=== PATIENT | male | born 1950 | race Caucasian/White ===

== ENCOUNTER 2020-09-12 13:42 | Outpatient (REF) | payer MEDICARE, OTHER, SELFPAY ==
[2020-09-12 16:59] LABS: Estimated Average Glucose 177 mg/dL; Hemoglobin A1c % 7.8 %
[2020-09-12 17:17] LABS: Alanine Aminotransferase 24 U/L (0-40); Albumin Level 4.4 g/dL (3.5-5.0); Alkaline Phosphatase 68 U/L (39-117); Anion Gap 14 (12-20); Aspartate Amino Transferase 15 U/L (5-37); Bilirubin Total 0.8 mg/dL (0.0-1.0); Blood Urea Nitrogen 23 mg/dL (9-16); Calcium 9.6 mg/dL (8.4-10.2); Carbon Dioxide 25 mmol/L (22-29); Chloride 108 mmol/L (96-108); Cholesterol 165 mg/dL; Creatinine Urine 66.45 mg/dL; Estimated Glomerular Filt Rate > 60; Glucose Random 155 mg/dL (60-115); HDL Cholesterol 36 mg/dL; LDL Cholesterol Calculated 102 mg/dl; Microalbum/Creatinine Ratio Ur 22.5 ug/mg cr; Potassium 4.4 mmol/L (3.3-5.1); Sodium 143 mmol/L (135-145); Total Protein 7.4 g/dL (6.5-8.0); Triglycerides 136 mg/dL
== END 2020-09-12 13:43 | disposition home or self-care (01) ==
LOC: HO.MANLDS 13:42
PROVIDERS: PCP Internal Medicine; Visit Provider Internal Medicine
DX: E11.9 Type 2 diabetes mellitus without complications (principal)
CPT/HCPCS: 36415; 80053; 80061; 82043; 83036

== ENCOUNTER 2021-10-15 14:46 | Outpatient (REF) | payer MEDICARE, OTHER, SELFPAY ==
[2021-10-15 18:33] LABS: Estimated Average Glucose 151 mg/dL; Hemoglobin A1c % 6.9 %
== END 2021-10-15 14:47 | disposition home or self-care (01) ==
LOC: HO.MANLDS 14:46
PROVIDERS: Visit Provider Internal Medicine
DX: E11.9 Type 2 diabetes mellitus without complications (principal)
CPT/HCPCS: 36415; 83036

== ENCOUNTER 2022-03-28 15:10 | Outpatient (REF) | payer MEDICARE, OTHER, SELFPAY ==
[2022-03-28 19:36] LABS: Estimated Average Glucose 160 mg/dL; Hemoglobin A1c % 7.2 %
[2022-03-28 19:45] LABS: Alanine Aminotransferase 26 U/L (0-40); Albumin Level 4.4 g/dL (3.5-5.0); Alkaline Phosphatase 79 U/L (39-117); Anion Gap 15 (12-20); Aspartate Amino Transferase 17 U/L (5-37); Bilirubin Total 0.7 mg/dL (0.0-1.0); Blood Urea Nitrogen 20 mg/dL (9-16); Calcium 9.8 mg/dL (8.4-10.2); Carbon Dioxide 28 mmol/L (22-29); Chloride 106 mmol/L (96-108); Estimated Glomerular Filt Rate > 60; Glucose Random 118 mg/dL (60-115); Potassium 4.8 mmol/L (3.3-5.1); Sodium 144 mmol/L (135-145); Total Protein 7.2 g/dL (6.5-8.0)
== END 2022-03-28 15:11 | disposition home or self-care (01) ==
LOC: HO.MANLDS 15:10
PROVIDERS: Visit Provider Internal Medicine
DX: E11.9 Type 2 diabetes mellitus without complications (principal)
CPT/HCPCS: 36415; 80053; 83036

== ENCOUNTER 2024-04-22 16:09 | Outpatient (REF) | payer MEDICARE, OTHER, SELFPAY ==
--- OUTSIDE RECORDS SUMMARY | 2024-04-22 16:13 | XMS_ITS | Encounter Summary ---
Author Name [facility] [place] [facility] [place] Address [address] [place] [id number] Care Team Providers Care Test Developer Name Role Phone BUNNY MOTLEY Primary Care Provider Unavaila ble Insurance Providers: All historical and current Section Date Range: From patient's date of to the date document was created. This section includes the names of all active insurance providers for the patient. Insurance Provider Type of Coverage Plan Name Start of Policy Coverage End of Policy Coverage Group Number Member ID Insurance Provider's Telephone Number Policy Mohan's Name Patient's Relationship to Policy Mohan MEDICARE (WNR) MEDICARE (M) PART B Dec 07, 2014 PART B [id number] GRAHAMMECCA RIOS PATIENT MEDICARE (WNR) MEDICARE (M) PART A Jan 07, 2013 PART A [id number] MECCA STEVENSON PATIENT Selected Encounter This section includes the information on record at [place] for the Encounter. Date/Time Encounter Type Encounter Description Reason Provider Source Jan 19, 2024 03:00 PM OFFICE O/P EST LOW 20 MIN PRIMARY CARE/MEDICINE ICD-10-CM R31.0 Gross hematuria SAM MEJÍA [facility] Encounter Template Text not used by [place] Assessments - Encounter Diagnoses This section includes the primary and secondary diagnoses documented for the Encounter. Date/Time Primary/Secondary Diagnosis Diagnosis Name Provider Source Jan 19, 2024 03:37 PM PRIMARY Gross hematuria SAM MEJÍA [place] [facility] Jan 19, 2024 03:37 PM SECONDARY Type 2 diabetes mellitus with unspecified complications SAM MEJÍA [facility] Plan of Treatment: Future Appointments (+ 6 months) and Future Tests (+/- 45 days) The Plan of Treatment section includes future care activities for the patient [facility] [place] [facility] This section includes future appointments and future orders which are active, pending or scheduled. Future Appointments This section includes appointments that were scheduled to occur 6 months from the date of the Encounter, up to a maximum of 20 appointments. The data comes from all [facility] facilities. Appointment Date/Time Appointment Type Appointme nt Facility Name Jan 26, 2024 02:00 PM AMBULATORY - MEDICINE [facility] Mar 21, 2024 01:30 PM AMBULATORY MEDICINE [facility] Mar 25, 2024 01:40 PM AMBULATORY - MEDICINE [facility] Mar 25, 2024 02:30 PM AMBULATORY MEDICINE [facility] Active, Pending, and Scheduled Orders This section includes a listing of several types of active, pending, and scheduled orders, including clinic medications orders, diagnostic test orders, procedure orders and consult orders; where the start date of the order is 45 days before the date of the Encounter or 45 days after the date of theEncounter. The data comes from all [facility]. Test Date/Time Test Type Test Details Facility Name Jan 19, 2024 03:21 PM Consult Order [facility]-UROLOGY Cons Title Agent's Choice [facility] Lab Results: +/- 30 days of the encounter This section includes the Chemistry and Hematology Lab Results on record with [place] for the patient. Radiology Reports and Pathology Reports are provided separately, in subsequent sections. Lab Results This section contains the Chemistry/Hematology Results that were resulted 30 days before or 30 daysafter the date of the Encounter. Date/Time Source Result Type Result - Unit Interpretation Reference Range Comment Jan 19, 2024 03:53 PM [facility] CBC AND DIFF (AUTO) Specimen Type: BLOOD Comment: ~For Test: CBC AND DIFF (AUTO) ~STAT ORDER Ordering Provider: SAM MEJÍA Report Released Date/Time: Jan 19, 2024 03:03 PM Reporting Lab: [facility] [address] [facility] [address] Performing Lab: [facility] [address] [facility] [address] WBC 7.46 10*3/uL 4.50-11.00 RBC 4.59 10*6/uL 4.23-5.66 HGB 13.8 g/dL 12.8-17 HCT 39.5 39.2-50.4 MCV 86.1 fL 82-99 MCHC 34.9 g/dL 30.8-35.1 PLT 228 10*3/uL 140-360 RDW-CV 13.2 12.0-16.0 MONO, ABS 0.67 10*3/uL 0.30-1.10 MCH 30.1 pg 26.2-32.6 NEUT % 53.8 43.7-75.8 LYMPH % 32.3 14.0-42.3 MONO % 9.0 5.1-13.7 EOS % 4.2 0.4-6.8 BASO % 0.4 0.1-2.0 NEUT, ABS 4.02 10*3/uL 2.20-7.60 LYMPH, ABS 2.41 10*3/uL 1.00-3.20 EOS, ABS 0.31 10*3/uL 0.03-0.44 BASO, ABS 0.03 10*3/uL 0.01-0.13 IMMATURE GRAN % 0.3 0.0-0.7 IMMATURE GRAN, ABS 0.02 10*3/uL 0.00-0.06 NRBC % 0.0 0.0-0.0 NRBC, ABS 0.00 10*3/uL 0.00-0.00 Jan 19, 2024 02:43 PM [facility] PT & INR (PROTIME) Specimen Type: PLASMA No comment entered. Ordering Provider: SAM MEJÍA Report Released Date/Time: Jan 19, 2024 02:12 PM Reporting Lab: [facility] [address] [facility] [address] Performing Lab: [address] [address] INR 1.2 PROTIME 12.6 s 10.0-13.1 Jan 19, 2024 02:43 PM [facility] MICROSCOPIC AUTOMATED, URINE Specimen Type: URINE Comment: If Glucose = >500 and Ketones are positive, please alert the Physician. Ordering Provider: SAM MEJÍA Report Released Date/Time: Jan 19, 2024 02:11 PM Reporting Lab: [facility] [address] [facility] [address] Performing Lab: [facility] [address] [facility] [address] UA WBC TNTC /[HPF] 0-5 UA BACTERIA 3+ /[HPF] NoneObs UA RBC TNTC /[HPF] 0-3 UA WBC CLUMPS PRESENT /[HPF] None Jan 19, 2024 02:43 PM [facility] BASIC METABOLIC PANEL (non-fasting) Specimen Type: SERUM No comment entered. Ordering Provider: SAM MEJÍA Report Released Date/Time: Jan 19, 2024 02:12 PM Reporting Lab: [facility] [address] [facility] [address] Performing Lab: [address] [address] UREA NITROGEN 25 mg/dL 7-25 GLUCOSE 372 mg/dL H 65-100 SODIUM 141 mmol/L 135-145 POTASSIUM 4.9 mmol/L 3.5-5.0 CHLORIDE 105 mmol/L 100-110 CO2 22 meq/L 20-30 CREATININE, Serum 1.29 mg/dL 0.50-1.40 eGFR(CKD-EPI 2020) 57 mL/min L >60 Jan 19, 2024 02:43 PM [facility] URINALYSIS CLEAN CATCH Specimen Type: URINE Comment: If Glucose = >500 and Ketones are positive, please alert the Physician. Ordering Provider: SAM MEJÍA Report Released Date/Time: Jan 19, 2024 02:11 PM Reporting Lab: [address] [address] Performing Lab: [address] [place] [address] UA COLOR Brown Yellow UA APPEARANCE Ex.Turbid Clear UA GLUCOSE 1,000 mg/dL Negative UA KETONES NEGATIVE mg/dL Negative UA BLOOD LARGE mg/dL Negative UA PROTEIN 100 mg/dL Negative UA NITRITE NEGATIVE mg/dL Negative UA BILIRUBIN NEGATIVE mg/dL Negative UA SPECIFIC GRAVITY 1.028 H 1.016-1.022 UA pH 6.0 5.0-9.0 UA UROBILINOGEN Normal mg/dL <2.0 UA LEUKOCYTE LARGE Negative Vital Signs: All taken on the encounter date This section contains inpatient and outpatient Vital Signs collected on the date of the Encounter. Date/Time Temperature Pulse Blood Pressure Respiratory Rate SP02 Pain Height Weight Body Mass Index Source Jan 19, 2024 02:09 PM 97.7 76 110/66 16 98 3 [facility] Social History: Smoking Status (Most current) and Tobacco Use (All prior to encounter date) This section includes the most current, and the historical, smoking and tobacco- related health factors from the [place] facility where the Encounter took place. Current Smoking Status This section includes the most current smoking, or tobacco-related health factor, from the [place] facility where the Encounter took place. Date/Time Current Smoking Status Comment [facility] Sep 22, 2023 09:30 AM [place]-TOBACCO QUIT 15 YRS OR MORE [facility] Tobacco Use History This section includes a history of the smoking, or tobacco-related health factors, that were collected on or before the date of the Encounter. The data comes from the [place] facility where the Encounter took place. Date/Time Smoking Status/Tobac co Use Comment Facility Sep 22, 2023 09:30 AM [place] 15 [place]RS [place] [facility] [facility] Apr 03, 2022 03:00 PM [place]-TO[place]ACCO FORMER USER [place] [facility] Apr 03, 2022 03:00 PM [place]-TO[place]ACCO QUIT 15 YRS OR MORE [facility] [facility] Apr 04, 2021 03:30 PM [place]-TOBACCO FORMER USER [place] [facility] Apr 04, 2021 03:30 PM [place]-TO[place]ACCO QUIT 15 YRS OR MORE [place] [facility] Dec 09, 2019 01:00 PM [facility]-TOBACCO [facility] Dec 09, 2019 01:00 PM VA-TOBACCO QUIT 15 YRS OR MORE [facility] Dec 01, 2018 01:48 PM [place]-TOBACCO [facility] Dec 01, 2018 01:48 PM VA-TOBACCO QUIT 15 YRS OR MORE [facility] Jan 21, 2018 03:37 PM VA-TOBACCO [facility] Jan 21, 2018 03:37 PM VA-TOBACCO QUIT 15 YRS OR MORE [facility] Jan 19, 2017 01:56 PM QUIT TOBACCO USE > 7 YEARS AGO quit 40 myears ago [facility] Nov 30, 2015 01:04 PM QUIT TOBACCO USE > 7 YEARS AGO quit in 1979 [facility] July 09, 2001 08:11 AM QUIT TOBACCO USE > 7 YEARS AGO quit 1979 [facility] Pathology Reports: +/- 30 days of the encounter Pathology Reports For cases when an order for pathology services may have been completed prior to the date of the Encounter, the report list includes the Pathology Reports that were completed up to 30 days before dateof the Encounter. For cases when an order for pathology services may have been completed after the date of the Encounter, the report list also includes the Pathology Reports that were completed up to30 days after date of the Encounter. The data comes from all [facility] facilities. Date/Time Pathology Report Provider Source Jan 19, 2024 02:43 PM LR MICROBIOLOGY RE PORT: Reporting Lab: [facility] [CLIA# [id number]] [address] [place] [id number] Accession [UID]: [id number] [[id number]] Received: Jan 20, 2024@13:15 Collection sample: URINE CLEAN CATCH Collection date: Jan 19, 2024 14:43 Site/Specimen: URINE Provider: SAM MEJÍA Comment on specimen: POSITIVE CULTURE RESULTS MAY NOT REPRESENT CLINICAL INFECTION. CONSIDER NEED FOR ANTIBIOTICS IN THE CONTEXT OF UTI SYMPTOMS. Test(s) ordered: URINE CULTURE(MWROX).......... completed: Jan 25, 2024 10:45 * BACTERIOLOGY FINAL REPORT => Jan 25, 2024 10:45 [facility] CODE: [id number] CULTURE RESULTS: ESCHERICHIA COLI - Quantity: >100,000 CFU/ml ANTIBIOTIC SUSCEPTIBILITY TEST RESULTS: ESCHERICHIA COLI : SUSC INTP AMIKACIN.................. .... S S CEFEPIME.................. .... <2 S ERTAPENEM................. .... <0.5 S MEROPENEM................. .... <1 S PIPERACILLIN/TAZO......... .... <8 S AMPICILLIN................ .... <8 S CEFAZOLIN................. .... <2 S CEFTAZIDIME............... .... <1 S CEFTRIAXONE............... .... <1 S GENTAMICIN................ .... <2 S TOBRAMYCIN................ .... <2 S TRIM/SULF................. .... <0.5/9.5 S IMIPENEM.................. .... <1 S CIPROFLOXACIN............. .... <0.25 S NITROFURANTOIN............ .... <32 S CEFOXITIN................. .... <8 S CEFUROXIME................ .... <4 S AMPICILLIN/SULBACTAM...... .... <4/2 S LEVOFLOXACIN.............. .... <0.5 S =--=--=--=--=--=--=--=--=- -=--=--=--=--=--=--=--=--= --=--=--=--=--=--=--=--=-- Performing Laboratory: Bacteriology Report Performed By: [facility] [CLIA# [id number]] [address] [place] [address] LISA BESS [place] [facility] Encounter Notes: All associated encounter notes This section contains the clinical notes associated to the Encounter. Date/Time Encounter Note(s) Provider Source Feb 01, 2024 08:22 AM ADDENDUM: LOCAL TITLE: Addendum STANDARD TITLE: ADDENDUM DATE OF NOTE: FEB 01, 2024@08:22:16 ENTRY DATE: FEB 01, 2024@08:22:17 AUTHOR: SAM MEJÍA EXP COSIGNER: URGENCY: STATUS: COMPLETED ANTIBIOTIC SUSCEPTIBILITY TEST RESULTS: ESCHERICHIA COLI : SUSC INTP AMIKACIN................. ..... S S CEFEPIME................. ..... <2 S ERTAPENEM................ ..... <0.5 S MEROPENEM................ ..... <1 S PIPERACILLIN/TAZO........ ..... <8 S AMPICILLIN............... ..... <8 S CEFAZOLIN................ ..... <2 S CEFTAZIDIME.............. ..... <1 S CEFTRIAXONE.............. ..... <1 S GENTAMICIN............... ..... <2 S TOBRAMYCIN............... ..... <2 S TRIM/SULF................ ..... <0.5/9.5 S IMIPENEM................. ..... <1 S CIPROFLOXACIN............ ..... <0.25 S NITROFURANTOIN........... ..... <32 S CEFOXITIN................ ..... <8 S CEFUROXIME............... ..... <4 S AMPICILLIN/SULBACTAM..... ..... <4/2 S LEVOFLOXACIN............. ..... <0.5 S Coverage with Keflex: no further treatment required unless remains symptomatic. /joanna/ SAM MENESES MS,PAYumikoC PHYSICIAN DIRECTOR IMAGING Signed: 02/01/2024 08:22 Receipt Acknowledged By: 02/01/2024 08:39 /es/ Bunny Motley DNP, REVENUE COORDINATOR-, [facility] Primary Care Nurse Practitioner === --- Original Document --- 01/19/24 SEBASTIEN NOTE: SICK CALL VISIT HPI: 74-year-old male with below noted past medical history presents today for evaluation of persistent hematuria. denies any pain. He states that he has noted that he has been passing darker urine red to brown in color. Denies any fever or chills. He is not currently taking any anticoagulants. He does take aspirin 81 mg daily. He states that he did have a bowel movement but was seated on the toilet and may have urinated and thought that the stool also had blood. It was difficult for him to differentiate. He has not had any bloody stools since that episode. He has not felt weak or dizzy. There is been no chest pain or shortness of breath. He has not been seen by a urologist stating he does not know of any problems with his bladder or prostate. REVIEW OF SYSTEMS: A 12 point review of systems is negative except as noted in the HPI. 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 07/31/2016 JATIN BROCK Hiatal hernia R69. 07/30/2016 JATIN BROCK Anxiety F41.9 12/27/2018 ROGER WALLACE Osteoarthritis of knee R69. 11/30/2015 JATIN BROCK Hyperlipidemia (SNOMED CT 41040999) 04/08/2017 GUILLERMOPANCHOJAYE Hypertension (SNOMED CT 61094882) I 03/06/2016 JAYE GUILLERMO Obesity (SNOMED CT 430858727) E66.9 03/06/2016 JAYE GUILLERMO Hyperlipidemia (SNOMED CT 88639540) 03/06/2016 GUILLERMOJAYE Hepatitis C 070.51 01/07/2016 BUNNY WHITMORE Meds: Active Outpatient Medications (including Supplies): ATORVASTATIN CALCIUM 80MG TAB TAKE ONE TABLET BY MOUTH ACTIVE ONCE DAILY FOR CHOLESTEROL DOSE CHANGE EZETIMIBE 10MG TAB TAKE ONE TABLET BY MOUTH ONCE DAILY TO ACTIVE LOWER CHOLESTEROL GLUCOSE SENSOR DEXCOM G7 USE 1 SENSOR DIRECTED EVERY 10 ACTIVE DAYS INSULIN,ASPART(EQV-NOVLG) 100UN/ML FLXPEN INJECT 22 UNITS HOLD SUBCUTANEOUSLY THREE TIMES A DAY BEFORE MEALS FOR DIABETES INSULIN,GLARGINE-YFGN 100UNIT/ML PEN 3ML INJECT ACTIVE DIRECTED SUBCUTANEOUSLY ONCE DAILY START AT 40 UNITS PER DAY. IF BLOOD SUGAR REMAINS ELEVATED, MAY INCREASE TO 45 UNITS PER DAY. IF STILL ELEVATED, YOU MAY INCREASE TO 50 UNITS PER DAY KETOCONAZOLE 2% CREAM APPLY A SMALL AMOUNT TOPICALLY TWICE ACTIVE DAILY FUNGAL INFECTION LANCET,SOFTCLIX USE 1 LANCET DIRECTED THREE TIMES A DAY ACTIVE TO TEST BLOOD SUGAR MUPIROCIN 2% OINT APPLY THIN LAYER TOPICALLY TWICE DAILY ACTIVE FOR SKIN INFECTION PREGABALIN 200MG ORAL CAP TAKE ONE CAPSULE BY MOUTH TWICE ACTIVE DAILY FOR PAIN SKIN BARRIER WIPE TORBOT SKIN TAC USE 1 WIPE TOPICALLY ACTIVE EVERY 10 DAYS TO HELP SENSOR TO ADHERE BETTER TRANSPARENT DRESSING 4IN X 4 3/4IN APPLY 1 DRESSING ACTIVE TOPICALLY EVERY 10 DAYS TYPE 2 DIABETES FOR CGM/SENSOR Non-VA ALPHA LIPOIC ACID CAP/TAB 200 MG BY MOUTH TWICE ACTIVE DAILY Non-VA ASPIRIN 81MG EC TAB 81MG BY MOUTH ONCE DAILY ACTIVE Non-VA DESVENLAFAXINE(EQV-PRISTI Q)100MG SA TAB 100MG BY ACTIVE MOUTH ONCE DAILY Non-VA DICLOFENAC NA 75MG EC TAB 75MG BY MOUTH TWICE DAILY ACTIVE NEEDED Non-VA DOXEPIN HCL 75MG CAP 75MG BY MOUTH AT BEDTIME ACTIVE Non-VA GLUCOSE CHEW TAB TAB,CHEWABLE FOUR TABLETS BY MOUTH ACTIVE ONE TIME NEEDED Allergies: ERYTHROMYCIN, METFORMIN, EMPAGLIFLOZIN Date Vital Measurement Qualifiers 01/19/2024 14:09 Temp F (C) 97.7 (36.5) Pulse 76 Respir 16 BP 110/66 Pain 3 POx (L/Min)(%) 98 At Rest FOCUSED EXAMINATION GEN: Well-developed slightly disheveled with noted odor of urine in room HEENT: NCAT Lungs: CTAB COR: RRR Vascular: Well-perfused ABD: Protuberant nontender to palpation : No CVAT Labs: ---- PT 12.6 sec 10 - 13.1 INR 1.2 Comments: a a. Evaluation for INR: Normal: 0.9 - 1.1 INR Standard dose: 2.0 - 3.0 INR High dose: 2.5 - 3.5 INR ---- GLUCOSE 372 H mg/dL 65 - 100 BUN 25 mg/dL 7 - 25 CREATININE 1.29 mg/dL .5 - 1.4 eGFR(IDMS) Ref: >=60 CREAT mg/dL .5 - 1.5 eGFR See Eval Ref: See Eval Sodium 141 mmol/L 135 - 145 K+/Pot 4.9 mmol/L 3.5 - 5 CL 105 mmol/L 100 - 110 CO2 22 mEq/L 20 - 30 ---- WBC/HPF TNTC /HPF 0 - 5 RBC/HPF TNTC /HPF 0 - 3 BACTI 3+ /HPF Ref: NoneObs EPITH C ---- Color Brown Ref: Yellow Appear Ex.Turbid Ref: Clear pH 6.0 5 - 9 GlucUr 1,000 mg/dL Ref: Negative Keton Neg mg/dL Ref: Negative Blood LARGE mg/dL Ref: Negative Protein 100 mg/dL Ref: Negative LeukEs LARGE Ref: Negative Nitrit Neg mg/dL Ref: Negative Biliru Neg mg/dL Ref: Negative UroBiln Normal mg/dL Ref: <2.0 SpeGra 1.028 H 1.016 - 1.022 eGFR(CKD-EPI 2020): 57 L mL/min Ref: >=60 UA WBC CLUMPS: PRESENT /HPF CBCd ordered but cancelled by lab. MDM: No evidence of coagulopathy. Urine with large heme, leukocytes and bacteria. Will initiate Keflex 250 mg p.o. every 8 hours x 5 days. Painless hematuria concerning for neoplasm. is agreeable to be seen by urology for cystoscopy which I discussed with him at length in regards to the procedure. [place] also with poor control of is his diabetes (noted No Show with DM educator on 01/11). No ketones in urine. Will alert PCP for continuation of care. RTC as needed. ASSESSMENT/PLAN Gross Hematuria Type 2 diabetes mellitus as above able to verbalize understanding of plan of care and agrees. >> MEDICATIONS Reviewed and reconciled with /es/ SAM MENESES MS,PA-C PHYSICIAN DIRECTOR IMAGING Signed: 01/19/2024 15:39 Receipt Acknowledged By: 01/20/2024 06:26 /joanna/ Bunny Motley DNP, REVENUE COORDINATOR-BC, CNL Primary Care Nurse Practitioner SAM MEJÍA [facility] [facility] Jan 19, 2024 02:39 PM PHYSICIAN DIRECTOR IMAGING NOTE: LOCAL TITLE: SEBASTIEN NOTE STANDARD TITLE: PHYSICIAN DIRECTOR IMAGING NOTE DATE OF NOTE: JAN 19, 2024@14:39 ENTRY DATE: JAN 19, 2024@14:39:36 AUTHOR: SAM MEJÍA EXP COSIGNER: URGENCY: STATUS: COMPLETED SEBASTIEN NOTE Has ADDENDA SICK CALL VISIT HPI: 74-year-old male with below noted past medical history presents today for evaluation of persistent hematuria. denies any pain. He states that he has noted that he has been passing darker urine red to brown in color. Denies any fever or chills. He is not currently taking any anticoagulants. He does take aspirin 81 mg daily. He states that he did have a bowel movement but was seated on the toilet and may have urinated and thought that the stool also had blood. It was difficult for him to differentiate. He has not had any bloody stools since that episode. He has not felt weak or dizzy. There is been no chest pain or shortness of breath. He has not been seen by a urologist stating he does not know of any problems with his bladder or prostate. REVIEW OF SYSTEMS: A 12 point review of systems is negative except as noted in the HPI. 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 07/31/2016 JATIN BROCK Hiatal hernia R69. 07/30/2016 JATIN BROCK Anxiety F41.9 12/27/2018 ROGER WALLACE Osteoarthritis of knee R69. 11/30/2015 JATIN BROCK Hyperlipidemia (SNOMED CT 07319088) 04/08/2017 JAYE GUILLERMO Hypertension (SNOMED CT 82943222) I 03/06/2016 JAYE GUILLERMO Obesity (SNOMED CT 856350786) E66.9 03/06/2016 JAYE GUILLERMO Hyperlipidemia (SNOMED CT 72424489) 03/06/2016 JAYE GUILLERMO Hepatitis C 070.51 01/07/2016 BUNNY WHITMORE Meds: Active Outpatient Medications (including Supplies): ATORVASTATIN CALCIUM 80MG TAB TAKE ONE TABLET BY MOUTH ACTIVE ONCE DAILY FOR CHOLESTEROL DOSE CHANGE EZETIMIBE 10MG TAB TAKE ONE TABLET BY MOUTH ONCE DAILY TO ACTIVE LOWER CHOLESTEROL GLUCOSE SENSOR DEXCOM G7 USE 1 SENSOR DIRECTED EVERY 10 ACTIVE DAYS INSULIN,ASPART(EQV-NOVLG) 100UN/ML FLXPEN INJECT 22 UNITS HOLD SUBCUTANEOUSLY THREE TIMES A DAY BEFORE MEALS FOR DIABETES INSULIN,GLARGINE-YFGN 100UNIT/ML PEN 3ML INJECT ACTIVE DIRECTED SUBCUTANEOUSLY ONCE DAILY START AT 40 UNITS PER DAY. IF BLOOD SUGAR REMAINS ELEVATED, MAY INCREASE TO 45 UNITS PER DAY. IF STILL ELEVATED, YOU MAY INCREASE TO 50 UNITS PER DAY KETOCONAZOLE 2% CREAM APPLY A SMALL AMOUNT TOPICALLY TWICE ACTIVE DAILY FUNGAL INFECTION LANCET,SOFTCLIX USE 1 LANCET DIRECTED THREE TIMES A DAY ACTIVE TO TEST BLOOD SUGAR MUPIROCIN 2% OINT APPLY THIN LAYER TOPICALLY TWICE DAILY ACTIVE FOR SKIN INFECTION PREGABALIN 200MG ORAL CAP TAKE ONE CAPSULE BY MOUTH TWICE ACTIVE DAILY FOR PAIN SKIN BARRIER WIPE TORBOT SKIN TAC USE 1 WIPE TOPICALLY ACTIVE EVERY 10 DAYS TO HELP SENSOR TO ADHERE BETTER TRANSPARENT DRESSING 4IN X 4 3/4IN APPLY 1 DRESSING ACTIVE TOPICALLY EVERY 10 DAYS TYPE 2 DIABETES FOR CGM/SENSOR Non-VA ALPHA LIPOIC ACID CAP/TAB 200 MG BY MOUTH TWICE ACTIVE DAILY Non-VA ASPIRIN 81MG EC TAB 81MG BY MOUTH ONCE DAILY ACTIVE Non-VA DESVENLAFAXINE(EQV-PRISTI Q)100MG SA TAB 100MG BY ACTIVE MOUTH ONCE DAILY Non-VA DICLOFENAC NA 75MG EC TAB 75MG BY MOUTH TWICE DAILY ACTIVE NEEDED Non-VA DOXEPIN HCL 75MG CAP 75MG BY MOUTH AT BEDTIME ACTIVE Non-VA GLUCOSE CHEW TAB TAB,CHEWABLE FOUR TABLETS BY MOUTH ACTIVE ONE TIME NEEDED Allergies: ERYTHROMYCIN, METFORMIN, EMPAGLIFLOZIN Date Vital Measurement Qualifiers 01/19/2024 14:09 Temp F (C) 97.7 (36.5) Pulse 76 Respir 16 BP 110/66 Pain 3 POx (L/Min)(%) 98 At Rest FOCUSED EXAMINATION GEN: Well-developed slightly disheveled with noted odor of urine in room HEENT: NCAT Lungs: CTAB COR: RRR Vascular: Well-perfused ABD: Protuberant nontender to palpation : No CVAT Labs: ---- PT 12.6 sec 10 - 13.1 INR 1.2 Comments: a a. Evaluation for INR: Normal: 0.9 - 1.1 INR Standard dose: 2.0 - 3.0 INR High dose: 2.5 - 3.5 INR ---- GLUCOSE 372 H mg/dL 65 - 100 BUN 25 mg/dL 7 - 25 CREATININE 1.29 mg/dL .5 - 1.4 eGFR(IDMS) Ref: >=60 CREAT mg/dL .5 - 1.5 eGFR See Eval Ref: See Eval Sodium 141 mmol/L 135 - 145 K+/Pot 4.9 mmol/L 3.5 - 5 CL 105 mmol/L 100 - 110 CO2 22 mEq/L 20 - 30 ---- WBC/HPF TNTC /HPF 0 - 5 RBC/HPF TNTC /HPF 0 - 3 BACTI 3+ /HPF Ref: NoneObs EPITH C ---- Color Brown Ref: Yellow Appear Ex.Turbid Ref: Clear pH 6.0 5 - 9 GlucUr 1,000 mg/dL Ref: Negative [place] Neg mg/dL Ref: Negative Blood LARGE mg/dL Ref: Negative Protein 100 mg/dL Ref: Negative LeukEs LARGE Ref: Negative Nitrit Neg mg/dL Ref: Negative Biliru Neg mg/dL Ref: Negative UroBiln Normal mg/dL Ref: <2.0 SpeGra 1.028 H 1.016 - 1.022 eGFR(CKD-EPI 2020): 57 L mL/min Ref: >=60 UA WBC CLUMPS: PRESENT /HPF CBCd ordered but cancelled by lab. MDM: No evidence of coagulopathy. Urine with large heme, leukocytes and bacteria. Will initiate Keflex 250 mg p.o. every 8 hours x 5 days. Painless hematuria concerning for neoplasm. Joy is agreeable to be seen by urology for cystoscopy which I discussed with him at length in regards to the procedure. also with poor control of is his diabetes (noted No Show with DM educator on 01/11). No ketones in urine. Will alert PCP for continuation of care. RTC as needed. ASSESSMENT/PLAN Gross Hematuria Type 2 diabetes mellitus as above able to verbalize understanding of plan of care and agrees. >> MEDICATIONS Reviewed and reconciled with Joy /es/ SAM MENESES MS,PA-C PHYSICIAN DIRECTOR IMAGING Signed: 01/19/2024 15:39 Receipt Acknowledged By: 01/20/2024 06:26 /joanna/ Bunny Motley DNP, REVENUE COORDINATOR-BC, CNL Primary Care Nurse Practitioner 02/01/2024 ADDENDUM STATUS: COMPLETED ANTIBIOTIC SUSCEPTIBILITY TEST RESULTS: ESCHERICHIA COLI : SUSC INTP AMIKACIN................. ..... S S CEFEPIME................. ..... <2 S ERTAPENEM................ ..... <0.5 S MEROPENEM................ ..... <1 S PIPERACILLIN/TAZO........ ..... <8 S AMPICILLIN............... ..... <8 S CEFAZOLIN................ ..... <2 S CEFTAZIDIME.............. ..... <1 S CEFTRIAXONE.............. ..... <1 S GENTAMICIN............... ..... <2 S TOBRAMYCIN............... ..... <2 S TRIM/SULF................ ..... <0.5/9.5 S IMIPENEM................. ..... <1 S CIPROFLOXACIN............ ..... <0.25 S NITROFURANTOIN........... ..... <32 S CEFOXITIN................ ..... <8 S CEFUROXIME............... ..... <4 S AMPICILLIN/SULBACTAM..... ..... <4/2 S LEVOFLOXACIN............. ..... <0.5 S Coverage with Keflex: no further treatment required unless remains symptomatic. /joanna/ SAM MENESES MS,PA-C PHYSICIAN DIRECTOR IMAGING Signed: 02/01/2024 08:22 Receipt Acknowledged By: * AWAITING SIGNATURE * BUNNY MOTLEY KEVYN JONAH [facility]
--- OUTSIDE RECORDS SUMMARY | 2024-04-22 16:13 | XMS_ITS ---
Author Name [facility] [place] Organization [facility] [place] Address [address] [place] [id number] Care Team Providers Care End Packer Name Role Phone BUNNY MOTLEY Primary Care [...] PART B Dec 07, 2014 PART B [id number] GRAHAMMECCA PATIENT MEDICARE (WNR) MEDICARE (M) PART A Jan 07, 2013 PART A [id number] MECCA STEVENSON PATIENT Selected Encounter This section includes the information on record at [place] for the Encounter. Date/Time Encounter Type Encounter Description Reason Provider Source Sep 22, 2023 09:30 AM OFFICE O/P EST LOW 20 MIN PRIMARY CARE/MEDICINE ICD-10-CM E11.8 Type 2 diabetes mellitus with unspecified complications LEODAN MOTLEY Olivia Encounter Template Text not used by [place] Assessments - Encounter Diagnoses This section includes the primary and secondary diagnoses documented for the Encounter. Date/Time Primary/Secondary Diagnosis Diagnosis Name Provider Source Sep 22, 2023 10:21 AM PRIMARY Type 2 diabetes mellitus with unspecified complications LEODAN MOTLEY [facility] Sep 22, 2023 10:21 AM SECONDARY Essential (primary) hypertension MOTLEY,WILL DEBI J [place] [facility] [place] [facility] Sep 22, 2023 10:21 AM SECONDARY Hyperlipidemia, unspecified MOTLEY,WILL DEBI J [place] [facility] [place] [facility] Sep 22, 2023 10:21 AM SECONDARY Polyp of colon MOTLEY,WILL DEBI J [place] [facility] [place] [facility] Sep 22, 2023 10:21 AM SECONDARY Solitary pulmonary nodule MOTLEY,WILL DEBI J [place] [facility] [place] [facility] Sep 22, 2023 10:21 AM SECONDARY Type 2 diabetes mellitus w diabetic chronic kidney disease MOTLEY,WILL DEBI J [place] [facility] [place] [facility] Plan of Treatment: Future Appointments (+ 6 months) and Future Tests (+/- 45 days) The Plan of Treatment section includes future care activities for the patient from [facility] [place] [facility] This section includes future appointments and future orders which are active, pending or scheduled. Future Appointments This section includes appointments that were scheduled to occur 6 months from the date of the Encounter, up to a maximum of 20 appointments. The data comes from all [place] treatment facilities. Appointment Date/Time Appointment Type Appointme nt Facility Name Oct 06, 2023 01:00 PM AMBULATORY - MEDICINE [place] [facility] [place] [facility] Nov 03, 2023 02:00 PM AMBULATORY - MEDICINE [place] [facility] [place] [facility] Nov 03, 2023 03:15 PM AMBULATORY - NONE [place] [facility] [place] [facility] Nov 05, 2023 03:00 PM AMBULATORY - MEDICINE [place] [facility] [place] [facility] Nov 30, 2023 11:30 AM AMBULATORY - NONE [place] [facility] [place] [facility] Jan 11, 2024 03:30 PM AMBULATORY - MEDICINE [place] [facility] [place] [facility] 2024 03:00 PM AMBULATORY - MEDICINE [place] [facility] [place] [facility] Jan 19, 2024 02:00 PM AMBULATORY - [place]ICINE [place] [facility] [place] [facility] Jan 19, 2024 03:00 PM AMBULATORY - [place]ICINE [place] [facility] [place] [facility] Jan 26, 2024 02:00 PM AMBULATORY - MEDICINE [facility] Mar 21, 2024 01:30 PM AMBULATORY - MEDICINE [facility] Lab Results: +/- 30 days of the encounter This section includes the Chemistry and Hematology Lab Results on record with [place] for the patient. Radiology Reports and Pathology Reports are provided separately, in subsequent sections. Lab Results This section contains the Chemistry/Hematology Results that were resulted 30 days before or 30 daysafter the date of the Encounter. Date/Time Source Result Type Result - Unit Interpretation Reference Range Comment Sep 07, 2023 04:00 PM [facility] MICROSCOPIC AUTOMATED, URINE Specimen Type: URINE Comment: If Glucose = >500 and Ketones are positive, please alert the Physician. Critical result acknowledged. DR PENA 09/07/23@1622 BY Ordering Provider: LEODAN MOTLEY Report Released Date/Time: Sep 07, 2023 03:38 PM Reporting Lab: [address] [address] Performing Lab: [address] [address] UA WBC TNTC /[HPF] 0-5 UA BACTERIA 3+ /[HPF] NoneObs UA MUCUS FEW /[LPF] Trace UA RBC TNTC /[HPF] 0-3 UA SQUAMOUS EPITH FEW /[HPF] Sep 07, 2023 04:00 PM [facility] URINALYSIS CLEAN CATCH Specimen Type: URINE Comment: If Glucose = >500 and Ketones are positive, please alert the Physician. Critical result acknowledged. DR PENA 09/07/23@1622 BY Ordering Provider: LEODAN MOTLEY Report Released Date/Time: Sep 07, 2023 03:38 PM Reporting Lab: [address] [id number] Performing Lab: [address] [address] UA COLOR Light-Freeborn Yellow UA APPEARANCE Turbid Clear UA GLUCOSE >1000 mg/dL Negative UA KETONES TRACE mg/dL Negative UA BLOOD LARGE mg/dL Negative UA PROTEIN 70 mg/dL Negative UA NITRITE NEGATIVE mg/dL Negative UA BILIRUBIN NEGATIVE mg/dL Negative UA SPECIFIC GRAVITY 1.032 H 1.016-1.022 UA pH 6.0 5.0-9.0 UA UROBILINOGEN <2.0 mg/dL <2.0 UA LEUKOCYTE LARGE Negative Vital Signs: All taken on the encounter date This section contains inpatient and outpatient Vital Signs collected on the date of the Encounter. Date/Time Temperature Pulse Blood Pressure Respiratory Rate SP02 Pain Height Weight Body Mass Index Source Sep 22, 2023 09:24 AM 98.2 88 129/61 20 94 5 70 214 31 [place] [facility] [facility] Social History: Smoking Status (Most current) and Tobacco Use (All prior to encounter date) This section includes the most current, and the historical, smoking and tobacco- related health factors from the [place] facility where the Encounter took place. Current Smoking Status This section includes the most current smoking, or tobacco-related health factor, from the [place] facility where the Encounter took place. Date/Time Current Smoking Status Comment [facility] Sep 22, 2023 09:30 AM VA-TOBACCO QUIT 15 YRS OR MORE [place] [facility] [place] [facility] Tobacco Use History This section includes a history of the smoking, or tobacco-related health factors, that were collected on or before the date of the Encounter. The data comes from the [place] facility where the Encounter took place. Date/Time Smoking Status/Tobac co Use Comment Facility Sep 22, 2023 09:30 AM VA-TOBACCO QUIT 15 YRS OR MORE [place] [facility] [place] [facility] Apr 03, 2022 03:00 PM VA-TOBACCO FORMER USER [place] [facility] [place] [facility] Apr 03, 2022 03:00 PM VA-TOBACCO QUIT 15 YRS OR MORE [place] [facility] [place] [facility] Apr 04, 2021 03:30 PM VA-TOBACCO FORMER USER [place] [facility] [place] [facility] Apr 04, 2021 03:30 PM VA-TOBACCO QUIT 15 YRS OR MORE [place] [facility] [place] [facility] Dec 09, 2019 01:00 PM VA-TOBACCO FORMER USER [place] [facility] [place] [facility] Dec 09, 2019 01:00 PM VA-TOBACCO QUIT 15 YRS OR MORE [place] [facility] [place] [facility] Dec 01, 2018 01:48 PM VA-TOBACCO FORMER USER [place] [facility] [place] [facility] Dec 01, 2018 01:48 PM VA-TOBACCO QUIT 15 YRS OR MORE [place] [facility] [place] [facility] Jan 21, 2018 03:37 PM VA-TOBACCO FORMER USER [place] [facility] [place] [facility] Jan 21, 2018 03:37 PM VA-TOBACCO QUIT 15 YRS OR MORE [place] [facility] [place] [facility] Jan 19, 2017 01:56 PM QUIT TOBACCO USE > 7 YEARS AGO quit 40 myears ago [place] [facility] [place] [facility] Nov 30, 2015 01:04 PM QUIT TOBACCO USE > 7 YEARS AGO quit in 1979 [place] [facility] [place] [facility] July 09, 2001 08:11 AM QUIT TOBACCO USE > 7 YEARS AGO [facility] Radiology Reports: +/- 30 days of the encounter Radiology Reports For cases when an order for radiology services may have been completed prior to the date of the Encounter, the report list includes the Radiology Reports that were completed up to 30 days before dateof the Encounter. For cases when an order for radiology services may have been completed after the date of the Encounter, the report list also includes the Radiology Reports that were completed up to30 days after date of the Encounter. The data comes from all [place] treatment facilities. Date/Time Radiology Report Provider Source Sep 21, 2023 03:08 PM KNEE 3 VIEWS (RIGHT): FABIOLA STEVENSON Lonny [id number] -[id number] M Ex Date: SEP 21, 2023@15:08 Req Phys: SAM MEJÍA Pat Loc: CWM/NO/PACT 7 NURSE (Req'g Loc Img Loc: [facility] 1 Service: Unknown [place] [facility] , (Case [id number] COMPLETE) KNEE 3 VIEWS (RIGHT) (RAD Detailed) CPT:25324 Proc Modifiers : RIGHT Reason for Study: Fall onto right knee Clinical History: pain/swelling Report Status: Verified Date Reported: SEP 21, 2023 Date Verified: SEP 21, 2023 Watermaster E-Sig:/ES/TAZ VERGARA JR Report: Study: AP weight-bearing views of the knees with lateral and sunrise views of the right knee. Comparison: None. Findings: Moderate medial compartment degenerative versus posttraumatic versus CPPD arthropathy narrowing is present with compensatory widening of the lateral joint compartment. There are lateral meniscal chondrocalcinosis changes present. There is a moderate-sized suprapatellar joint effusion present. No bony fracture, dislocation or subluxation is seen. The bony mineralization is normal. Vascular calcifications are present prominently around the knee. There is preservation of the patellofemoral joint space with chondrocalcinosis changes and prominent degenerative osteophytes Impression: Arthritic changes of the right knee with joint effusion, as described above. Primary Diagnostic Code: No immediate attention required Primary Interpreting Staff: TAZ VERGARA JR, Radiologist (Watermaster) /TAZ KILLIAN JR [facility] Pathology Reports: +/- 30 days of [...] the Encounter. The data comes from all [place] treatment facilities. Date/Time Pathology Report Provider Source Sep 07, 2023 04:00 PM LR MICROBIOLOGY REPORT: Reporting Lab: [facility] [CLIA# [id number]] [address] [place] [id number] Accession [UID]: [id number] [[id number]] Received: Sep 07, 2023@16:48 Collection sample: URINE CLEAN CATCH Collection date: Sep 07, 2023 16:00 Site/Specimen: URINE Provider: BUNNY MOTLEY Comment on specimen: POSITIVE CULTURE RESULTS MAY NOT REPRESENT CLINICAL INFECTION. CONSIDER NEED FOR ANTIBIOTICS IN THE CONTEXT OF UTI SYMPTOMS. Test(s) ordered: URINE CULTURE(MWVINICIO).......... completed: Sep 14, 2023 11:07 * BACTERIOLOGY FINAL REPORT => Sep 14, 2023 11:07 TECH CODE: [id number] CULTURE RESULTS: ESCHERICHIA COLI - Quantity: >100,000 CFU/ml ANTIBIOTIC SUSCEPTIBILITY TEST RESULTS: ESCHERICHIA COLI : SUSC INTP AMIKACIN................. ..... S S CEFEPIME................. ..... <2 S ERTAPENEM................ ..... <0.5 S MEROPENEM................ ..... <1 S PIPERACILLIN/TAZO........ ..... <8 S AMPICILLIN............... ..... <8 S MOXALACTAM............... ..... <4/2 S CEFAZOLIN................ ..... <2 S CEFTAZIDIME.............. ..... <1 S CEFTRIAXONE.............. ..... <1 S GENTAMICIN............... ..... <2 S TOBRAMYCIN............... ..... <2 S TRIM/SULF................ ..... <0.5/9.5 S IMIPENEM................. ..... <1 S CIPROFLOXACIN............ ..... <0.25 S NITROFURANTOIN........... ..... <32 S CEFOXITIN................ ..... <8 S CEFUROXIME............... ..... <4 S AMPICILLIN/SULBACTAM..... ..... <4/2 S LEVOFLOXACIN............. ..... <0.5 S Bacteriology Remark(s): WITH >25,000 - <50,000 CFU/ML MIXED GRAM POSITIVE RENÉ WITH >50,000 - <75,000 CFU/ML MIXED GRAM POSITIVE RENÉ No further workup =--=--=--=--=--=--=--=--= --=--=--=--=--=--=--=--=- -=--=--=--=--=--=--=--=-- =-- Performing Laboratory: Bacteriology Report Performed By: Escherichia Coli Performed By: [facility] [CLIA# [id number]] [address] [place] [address] Bact Report Remark #1 Performed By: [facility] [CLIA# [id number]] [address] [place] [address] [facility] Encounter Notes: All associated encounter notes This section contains the clinical notes associated to the Encounter. Date/Time Encounter Note(s) Provider Source Dec 01, 2023 03:42 PM PRIMARY CARE NURSE PRACTITIONER OUTPATIENT NOTE: LOCAL TITLE: NURSE PRACTITIONER OUTPATIENT NOTE STANDARD TITLE: PRIMARY CARE NURSE PRACTITIONER OUTPATIENT NOTE DATE OF NOTE: DEC 01, 2023@15:42 ENTRY DATE: DEC 01, 2023@15:42:33 AUTHOR: BUNNY MOTLEY EXP COSIGNER: URGENCY: STATUS: COMPLETED t/c to [place] - discussed chest ct findings - lung nodules, will repeat in 6 mos. 1.1CM filling defect in the mid trachea - this was news to him. No history of intubations. He does note recently having more phlegme though he say it seems to be lessening. We discussed options including consult to pulm as well as monitoring with imaging in 6 mos. Because of the recent issue with increased phlegme, we opted to refer to pulmonary for further evaluation. Community care consult placed. /joanna/ Bunny Motley DNP, DENTAL BILLER-BC, CNL Primary Care Nurse Practitioner Signed: 12/01/2023 15:47 [facility] Nov 17, 2023 02:50 PM PRIMARY CARE NURSE PRACTITIONER OUTPATIENT NOTE: LOCAL TITLE: NURSE PRACTITIONER OUTPATIENT NOTE STANDARD TITLE: PRIMARY CARE NURSE PRACTITIONER OUTPATIENT NOTE DATE OF NOTE: NOV 17, 2023@14:50 ENTRY DATE: NOV 17, 2023@14:50:26 AUTHOR: BUNNY MOTLEY EXP COSIGNER: URGENCY: STATUS: COMPLETED i left message to review chest ct findings. /joanna/ Bunny Motley DNP, DENTAL BILLER-BC, CNL Primary Care Nurse Practitioner Signed: 11/17/2023 14:50 BUNNY MOTLEY [facility] Sep 22, 2023 09:59 AM PRIMARY CARE NURSE PRACTITIONER OUTPATIENT NOTE: LOCAL TITLE: NURSE PRACTITIONER OUTPATIENT NOTE STANDARD TITLE: PRIMARY CARE NURSE PRACTITIONER OUTPATIENT NOTE DATE OF NOTE: SEP 22, 2023@09:59 ENTRY DATE: SEP 22, 2023@09:59:46 AUTHOR: BUNNY MOTLEY EXP COSIGNER: URGENCY: STATUS: COMPLETED Chief complaint: Patient is a 73 year old . HPI: Pleasant male [place] here to follow up. He fell on his right knee last week and came in yesterday because of persistent pain. An xray was done, neg for fx but showing a moderate size effusion. He tells me the pain is getting better. I advised RICE, explaining each. I provided him with 2 leonardo bandages with instrustions including to be sure it is not too tight. I ordered acetaminophen 650mg for pain (avoiding NSAIDs h/o CKD). SH: lives with . PMH: Active problems - Computerized Problem List is the source for the followin. Vertigo 2. Brain stem stroke 3. Type 2 diabetes mellitus 4. Solitary nodule of lung 0.3cm RUL repeat imaging Apr 2023 5. Carotid artery stenosis 6. Exposure to potentially hazardous substance 7. Food insecurity 8. Chronic kidney disease stage 1 due to type 2 diabetes mellitus 9. Peripheral neuropathy due to type 2 diabetes mellitus 10. Heart murmur 11. Fatty liver 12. Peripheral vascular disease 13. Polyp Colon (SCT 59551980) 06/2016 next due june 2021 14. Depression 15. Gynecomastia R breast. unremarkable mammogram & US [facility] 05/23 16. Hiatal hernia egd 07/02/16 17. Anxiety 18. Osteoarthritis of knee b/l 19. Hyperlipidemia (SNOMED CT 97418754) 20. Hypertension (SNOMED CT 01197203) 21. Obesity (SNOMED CT 618428838) 22. Hyperlipidemia (SNOMED CT 34204585) 23. Hepatitis C likely false positive. see labs 12/2015 Allergies: ERYTHROMYCIN, METFORMIN The following VA and Non-VA meds were reconciled with patient. The patient was educated on the use of the medications including indication and side effects. Active and Recently Outpatient Medications (excluding Supplies): Active Outpatient Medications Status 1) ATORVASTATIN CALCIUM 80MG TAB TAKE ONE TABLET BY ACTIVE MOUTH ONCE DAILY FOR CHOLESTEROL DOSE CHANGE 2) CARBOXYMETHYLCELLULOSE NA 0.5% OPH SOLN INSTILL 1 ACTIVE DROP INTO EACH EYE FOUR TIMES DAILY NEEDED FOR DRY EYE 3) DOXYCYCLINE HYCLATE 100MG TAB TAKE ONE TABLET BY ACTIVE MOUTH TWICE DAILY 4) EZETIMIBE 10MG TAB TAKE ONE TABLET BY MOUTH ONCE ACTIVE DAILY TO LOWER CHOLESTEROL 5) INSULIN,GLARGINE-YFGN 100UNIT/ML PEN 3ML INJECT 28 ACTIVE UNITS SUBCUTANEOUSLY ONCE DAILY FOR DIABETES INCREASE BY ONE UNIT A DAY UNTIL MORNING BLOOD GLUCOSE LESS THAN 130 OR TO A MAXIMUM OF 50 UNITS DAILY 6) KETOCONAZOLE 2% CREAM APPLY A SMALL AMOUNT TOPICALLY ACTIVE TWICE DAILY FUNGAL INFECTION 7) MUPIROCIN 2% OINT APPLY THIN LAYER TOPICALLY TWICE ACTIVE DAILY FOR SKIN INFECTION 8) PREGABALIN 200MG ORAL CAP TAKE ONE CAPSULE BY MOUTH ACTIVE TWICE DAILY FOR PAIN Pending Outpatient Medications Status 1) IBUPROFEN 600MG TAB TAKE ONE TABLET BY MOUTH EVERY 6 PENDING HOURS NEEDED TAKE WITH FOOD Active Non-VA Medications Status 1) Non-VA ALPHA LIPOIC ACID CAP/TAB 200 MG BY MOUTH ACTIVE TWICE DAILY 2) Non-VA ASPIRIN 81MG EC TAB 81MG BY MOUTH ONCE DAILY ACTIVE 3) Non-VA DESVENLAFAXINE(EQV-PRISTIQ)100M G SA TAB 100MG ACTIVE BY MOUTH ONCE DAILY 4) Non-VA DICLOFENAC NA 75MG EC TAB 75MG BY MOUTH TWICE ACTIVE DAILY NEEDED 5) Non-VA DOXEPIN HCL 75MG CAP 75MG BY MOUTH AT BEDTIME ACTIVE 6) Non-VA GLUCOSE CHEW TAB TAB,CHEWABLE FOUR TABLETS BY ACTIVE MOUTH ONE TIME NEEDED 15 Total Medications Review of Systems: Constitutional: (-)for Fevers, chills, weakness, nights sweats On examination: 98.2 F [36.8 C] (09/22/2023 09:24)129/61 (09/22/2023 09:24)88 (09/22/2023 09:24)20 (09/22/2023 09:24)5 (09/22/2023 09:24)BMI: 30.8214 lb [97.07 kg] (09/22/2023 09:24) [place] is alert and oriented X3 HEENT: External without scars, lesions or masses, TM's without erythema or perforations, Oropharynx without erythema or exudates or worrisome lesions Neck: supple without masses, trachea midline, ln not palpable, no thyromegaly Cardiovasc: 2plus carotids without bruits, no JVD Heart Reguler rate and rhythm NL S1S2 no S3 or murmur Respiration: Normal respiratory effort, lungs clear ABD: Benign normal active bowel sounds no HSM no rebound or referred pain EXT: no clubbing, edema, or cyanosis All diagnostics from past month were reviewed with patient. Assessment/plan: Active problems - Computerized Problem List is the source for the followin. Type 2 diabetes mellitus - not controlled, making efforts with diet, reports compliance with meds, follows in endocrine 2. Solitary nodule of lung - chest ct ordered 3. Hyperlipidemia (SNOMED CT 13595989) - Well controlled 4. Hypertension (SNOMED CT 09106396) - well controlled 5. right knee pain - see above Review of medial record = 5mins Time spent with Patient including shared decision making = 20 Post visit documentation = 5mins Total time = 30 mins Follow up visit in 6 mos. Alert to PACT RN - Labs as necessary to address clinical status. Colonoscopy GAP Reminder: Recommendations are needed in the clinical reminder system following the patient's most recent colorectal cancer screening/surveillance test (Colonoscopy, Sigmoidoscopy or CT Colonography) Prior/outside colonoscopy results: Date: April 02, 2022 Colonoscopy reminder set 3 years from SEP 22, 2023. Comments (optional): due March 2027 Sexual Orientation: The patient thinks of their sexual orientation as: Straight or Heterosexual Medication Reconciliation: Outpatient: Has the patient been taking medications as documented in the EMLR? YES: The patient has been taking medications as documented in the EMLR. Essential Medication List for Review used to complete this medication reconciliation. INCLUDED IN THIS LIST: Alphabetical list of active outpatient prescriptions dispensed from this [place] (local) and dispensed from another [place] or DoD facility (remote) as well as inpatient orders (local, pending and active), local clinic medications, locally documented non-VA medications, and local prescriptions that have or been discontinued in the past 90 days. - All changes in medications, including all non-VA/Herbal/OTC medications were entered into CPRS. - If there were any medications the patient should no longer take, they were discontinued. - The patient/caregiver was instructed to update this list, discard old lists, and take this list to the next appointment, whether with a VA or non-VA provider. /joanna/ Bunny Motley DNP, DENTAL BILLER-BC, CNL Primary Care Nurse Practitioner Signed: 09/22/2023 10:20 BUNNY MOTLEY [place] [facility] [place] [facility] Sep 22, 2023 09:27 AM PREVENTIVE MEDICINE NURSING NOTE: LOCAL TITLE: CLINICAL REMINDERS/NURSING STANDARD TITLE: PREVENTIVE MEDICINE NURSING NOTE DATE OF NOTE: SEP 22, 2023@09:27 ENTRY DATE: SEP 22, 2023@09:27:21 AUTHOR: MICHAEL KHAN COSIGNER: URGENCY: STATUS: COMPLETED Advance Directive Screen MH AD: Patient does not have a completed advance directive on file at any facility, VA or outside. S/he is not interested in completing one at this time. The patient received education about Advance Directives and written notification of his/her rights. Homelessness/Food Insecurity Screen: In the past 2 months, have you been living in stable housing that you own, rent, or stay in as part of a household? Yes - Living in stable housing. Are you worried or concerned that in the next 2 months you may NOT have stable housing that you own, rent, or stay in as part of a household? No - Not worried about housing near future The reports the following: Within the past 12 months, you worried whether your food would run out before you got money to buy more. Never true Within the past 12 months, the food you bought just didn't last and you didn't have money to get more. Never true Depression Screening: Perform PHQ-2 A PHQ-2 screen was performed. The score was 0 which is a negative screen for depression. Over the past two weeks, how often have you been bothered by the following problems? 1. Little interest or pleasure in doing things Not at all 2. Feeling down, depressed, or hopeless Not at all Tobacco Use Screening: The patient is a former tobacco user. The patient quit fifteen or more years ago. Alcohol Use Screen (AUDIT-C): Alcohol Screen: SCREEN FOR ALCOHOL (AUDIT-C) An alcohol screening test (AUDIT-C) was negative (score=1). 1. How often did you have a drink containing alcohol in the past year? Consider a drink to be a 12 ounce can or bottle of regular beer, 8 ounces of malt liquor, a 5 ounce glass of table wine, or a 1.5 ounce shot of liquor (like scotch, gin, or vodka). Monthly or less 2. How many drinks containing alcohol did you have on a typical day when you were drinking in the past year? One or two drinks 3. How often did you have six or more drinks on one occasion in the past year? Never /joanna/ Michael [facility] Equalizing Saw Operator [employer] [facility] PICKER,PRIMARY CARE Signed: 09/22/2023 09:29 MICHAEL KHAN [place] [facility]
--- OUTSIDE RECORDS SUMMARY | 2024-04-22 16:13 | XMS_ITS ---
Author Name [facility] Organization [facility] Address [address] [place] [address] Care Team Providers Care Rate Clerk Name Role Phone BUNNY FOX Primary Care Provider Unavaila ble Insurance Providers: [...] PART B Dec 07, 2014 PART B [id number] MECCA CHU PATIENT MEDICARE (WNR) MEDICARE (M) PART A Jan 07, 2013 PART A [id number] GRAHAMMECCA BLANCA PATIENT Selected Encounter This section includes the information on record at OR for the Encounter. Date/Time Encounter Type Encounter Description Reason Pro vider Source Jul 02, 2023 02:00 PM Outpatient Encounter ENDOCRINOLOGY IHE Encounter Template Text not used by OR Plan of Treatment: Future Appointments (+ 6 months) and Future Tests (+/- 45 days) The Plan of Treatment section includes future care activities for the patient from all OR treatmentfacilities. This section includes future appointments and future orders which are active, pending or scheduled. Future Appointments This section includes appointments that were scheduled to occur 6 months from the date of the Encounter, up to a maximum of 20 appointments. The data comes from all OR treatment facilities. Appointment Date/Time Appointment Type Appointme nt Facility Name July 10, 2023 09:30 AM AMBULATORY - MEDICINE [facility] [place] [facility] August 06, 2023 11:00 AM AMBULATORY - MEDICINE [facility] [place] [facility] August 06, 2023 11:30 AM AMBULATORY - MEDICINE [facility] [place] [facility] Aug 24, 2023 01:00 PM AMBULATORY - MEDICINE [facility] [place] [facility] Sep 07, 2023 03:30 PM AMBULATORY - MEDICINE [facility] [place] [facility] Sep 21, 2023 02:00 PM AMBULATORY - MEDICINE [facility] [place] [facility] Sep 22, 2023 09:30 AM AMBULATORY - MEDICINE [facility] [place] [facility] Oct 06, 2023 01:00 PM AMBULATORY - MEDICINE [facility] [place] [facility] Nov 03, 2023 02:00 PM AMBULATORY - MEDICINE [facility] [place] [facility] Nov 03, 2023 03:15 PM AMBULATORY - NONE [facility] [place] [facility] Nov 05, 2023 03:00 PM AMBULATORY - MEDICINE [facility] [place] [facility] Nov 30, 2023 11:30 AM AMBULATORY - NONE [facility] [place] [facility] Lab Results: +/- 30 days of the encounter This section includes the Chemistry and Hematology Lab Results on record with OR for the patient. Radiology Reports and Pathology Reports are provided separately, in subsequent sections. Lab Results This section contains the Chemistry/Hematology Results that were resulted 30 days before or 30 daysafter the date of the Encounter. Date/Time Source Result Type Result - Unit Interpretation Reference Range Comment July 20, 2023 12:21 PM [facility] [place] [facility] HEMOGLOBIN A1C PANEL Specimen Type: BLOOD Comment: Values obtained from A1C measurements can vary. For atypical A1C assays, a reported value of 7.0 could actually be between 6.72 and 7.28 if measured by a reference method. A reported value of 9.0 could actually be between 8.73 and 9.27. Ref: http://www.ngs p.org/CAPdata. asp Ordering Provider: JAYE GUILLERMO Report Released Date/Time: Apr 06, 2023 07:48 PM Reporting Lab: [facility] [address] [facility] [address] Performing [facility]: [facility] [address] [facility] [address] HEMOGLOBIN A1C 11.4 H 4.0-5.6 July 20, 2023 12:21 PM [facility] BASIC METABOLIC PANEL (fasting) Specimen Type: SERUM No comment entered. Ordering Provider: JAYE GUILLERMO Report Released Date/Time: Apr 06, 2023 07:48 PM Reporting Lab: [facility] [address] [facility] [address] Performing Lab: [facility] [address] [facility] [address] UREA NITROGEN 21 mg/dL 7-25 GLUCOSE 339 mg/dL H 65-100 SODIUM 137 mmol/L 135-145 POTASSIUM 4.7 mmol/L 3.5-5.0 CHLORIDE 102 mmol/L 100-110 CO2 25 meq/L 20-30 CREATININE, Serum 1.20 mg/dL 0.50-1.40 eGFR(CKD-EPI 2020) 63 mL/min >60 July 20, 2023 12:21 PM [facility] LIPID PANEL FASTING Specimen Type: SERUM No comment entered. Ordering Provider: JAYE GUILLERMO Report Released Date/Time: Apr 06, 2023 07:48 PM Reporting Lab: [facility] [address] [facility] [address] Performing Lab: [facility] [address] CHOLESTEROL 131 mg/dL TRIGLYCERIDE 122 mg/dL 0-150 LDL calculated 67 mg/dL 0-129 CHOL/HDL 3.3 HDL CHOLESTEROL 40 mg/dL 40-60 July 20, 2023 12:21 PM [facility] MICROALBUMIN CREATININE RATIO PANEL Specimen Type: URINE No comment entered. Ordering Provider: JAYE GUILLERMO Report Released Date/Time: Apr 06, 2023 07:48 PM Reporting Lab: [facility] [address] [address] Performing Lab: [facility] [place] [facility] [address] [facility] [address] MICROALBUMIN/C REATININE RATIO 105.8 mg/g H 0-29.9 MICROALBUMIN,Q UANTITATIVE 6.7 mg/dL RR UNAVAIL CREATININE URINE 63.31 mg/dL Social History: Smoking Status (Most current) and Tobacco Use (All prior to encounter date) This section includes the most current, and the historical, smoking and tobacco- related health factors from the OR facility where the Encounter took place. Current Smoking Status This section includes the most current smoking, or tobacco-related health factor, from the OR facility where the Encounter took place. Date/Time Current Smoking Status Comment [facility] Apr 03, 2022 03:00 PM VA-TOBACCO QUIT 15 YRS OR MORE [facility] [place] [facility] Tobacco Use History This section includes a history of the smoking, or tobacco-related health factors, that were collected on or before the date of the Encounter. The data comes from the OR facility where the Encounter took place. Date/Time Smoking Status/Tobac co Use Comment Facility Apr 03, 2022 03:00 PM VA-TOBACCO QUIT 15 YRS OR MORE [facility] [place] [facility] Apr 04, 2021 03:30 PM VA-TOBACCO FORMER USER [facility] [place] [facility] Apr 04, 2021 03:30 PM VA-TOBACCO QUIT 15 YRS OR MORE [facility] [place] [facility] Dec 09, 2019 01:00 PM VA-TOBACCO FORMER USER [facility] [place] [facility] Dec 09, 2019 01:00 PM VA-TOBACCO QUIT 15 YRS OR MORE [facility] [place] [facility] Dec 01, 2018 01:48 PM VA-TOBACCO FORMER USER [facility] [place] [facility] Dec 01, 2018 01:48 PM VA-TOBACCO QUIT 15 YRS OR MORE [facility] [place] [facility] Jan 21, 2018 03:37 PM VA-TOBACCO FORMER USER [facility] [place] [facility] Jan 21, 2018 03:37 PM VA-TOBACCO QUIT 15 YRS OR MORE [facility] [place] [facility] Jan 19, 2017 01:56 PM QUIT TOBACCO USE > 7 YEARS AGO [facility] Nov 30, 2015 01:04 PM QUIT TOBACCO USE > 7 YEARS AGO [facility] July 09, 2001 08:11 AM QUIT TOBACCO USE > 7 YEARS AGO quit 1979 [facility] Encounter Notes: All associated encounter notes This section contains the clinical notes associated to the Encounter. Date/Time Encounter Note(s) Provider Source Jun 22, 2023 01:37 PM PHYSICIAN NOTE: LOCAL TITLE: MD NOTE STANDARD TITLE: PHYSICIAN NOTE DATE OF NOTE: JUN 22, 2023@13:37 ENTRY DATE: JUN 22, 2023@13:37:48 AUTHOR: JAYE GUILLERMO EXP COSIGNER: URGENCY: STATUS: COMPLETED Asked to see pt due to concern about infection in groin area With business office technician, assessed pt , who has some groin yeast, but no open sores. Asked to immediately let us know if he develops open sores. Ketoconazole cream, stop empagliflozin /es/ JAYE GUILLERMO MD STAFF PHYSICIAN Signed: 06/22/2023 13:41 JAYE GUILLERMO [facility]
--- OUTSIDE RECORDS SUMMARY | 2024-04-22 16:13 | XMS_ITS | Continuity of Care Document ---
Author Name [facility] Organization [facility] Care Team Providers Care Billing Associate Name Role Phone [facility] Unavailable Unavailable Problems Combined list of problems from Department of Defense and Veterans Affairs facilities. It does not include entries that were removed or entered in error. Problem Status Onset Date Problem Type Date of Resolution Comments Source Anxiety Active Condition [facility] Brain stem stroke Active Condition [facility] Carotid artery stenosis Active Condition [facility] Chronic kidney disease stage 1 due to type 2 diabetes mellitus Active Condition [facility] Depression Active Condition [facility] Exposure to potentially hazardous substance Active Condition [facility] Fatty liver Active Condition [facility] Food insecurity Active Condition [facility] Gynecomastia Active Condition July 31, 2016 Entered By: JATIN BROCK Comment: R breast. unremarkable mammogram & US [facility] 05/23 [facility] Heart murmur Active Condition [facility] Hepatitis C Active Condition Jan 07, 2016 Entered By: JATIN BROCK Comment: likely false positive. see labs 12/2015 [place] Hiatal hernia Active Condition July Entered By: JATIN BROCK Comment: egd 07/02/16 [facility] History of bilateral cataract extraction Active Condition [facility] Hyperlipidemia (SNOMED CT 29677388) Active Condition [place] Hypertension (SNOMED CT 87302908) Active Condition [facility] Obesity (SNOMED CT 592692143) Active Condition [facility] Osteoarthritis of knee Active Condition Nov 30, 2015 Entered By: JATIN BROCK Comment: b/l [facility] Peripheral neuropathy due to type 2 diabetes mellitus Active Condition [facility] Peripheral vascular disease Active Condition [facility] Polyp Colon (SCT 93934259) Active Condition Dec 24, 2018 Entered By: QUINTON FOX Comment: 06/2016 next due 5, june 2021 [facility] Solitary nodule of lung Active Condition Apr 22, 2022 Entered By: QUINTON FOX Comment: 0.3cm RUL repeat imaging Apr 2023 [facility] Type 2 diabetes mellitus Active Condition [facility] Vertigo Active Condition [facility] Diagnosis: ICD-10-CM E11.8 Type 2 diabetes mellitus with unspecified complications Active Diagnosis [facility] Diagnosis: ICD-10-CM R31.0 Gross hematuria Active Diagnosis [facility] Diagnosis: ICD-10-CM Z71.89 Other specified counseling Active Diagnosis [facility] Diagnosis: ICD-10-CM H33.322 Round hole, left eye Active Diagnosis [facility] Diagnosis: ICD-10-CM Z71.9 Counseling, unspecified Active Diagnosis [facility] Diagnosis: ICD-10-CM L03.032 Cellulitis of left toe Active Diagnosis [facility] Diagnosis: ICD-10-CM E11.9 Type 2 diabetes mellitus without complications Active Diagnosis [facility] Diagnosis: ICD-10-CM L08.89 Oth local infections of the skin and subcutaneous tissue Active Diagnosis [facility] Diagnosis: ICD-10-CM Z04.9 Encounter for examination and observation for unsp reason Active Diagnosis [facility] Diagnosis: ICD-10-CM S66.911A Strain of unsp musc/fasc/tend at wrs/hnd lv, r hand, init Active Diagnosis [facility] Medications Combined list of outpatient medications from Department of Defense and Veterans Affairs facilities.Medications provided include 1) outpatient medications from the last 15 months, and 2) patient-reported medications. Medication Details Route Status Patient Instructions Prescription Expires Prescription Number Last Dispense Date Ordering Provider Order Date Order Qty Source ACETAMINOPH EN 325MG TAB TAKE TWO TABLETS BY MOUTH EVERY 6 HOURS NEEDED ORAL 10/22/2023 [id number] BUNNY FOX 2023 100 [facility] ALPHA LIPOIC ACID CAP/TAB TAKE 200 MG BY MOUTH TWICE DAILY ORAL ACTIVE GUILLERMO,AL ICE 2020 [facility] ASPIRIN 81MG TAB,EC TAKE ONE TABLET BY MOUTH ONCE DAILY ORAL ACTIVE GULILERMO,AL ICE 2018 [facility] ATORVASTATI N CA 80MG TAB TAKE ONE TABLET BY MOUTH ONCE DAILY FOR CHOLESTE ROL DOSE CHANGE ORAL ACTIVE 09/07/2024 [id number] BUNNY FOX 2023 90 [facility] ATORVASTATI N CA 80MG TAB TAKE ONE TABLET BY MOUTH ONCE DAILY FOR CHOLESTE ROL DOSE CHANGE ORAL DISCONT INUED 08/28/2023 [id number] BUNNY FOX 2022 90 [facility] CARBOXYMETH YLCELLULOSE NA 0.5% SOLN,OPH INSTILL 1 DROP INTO EACH EYE FOUR TIMES DAILY NEEDED FOR DRY EYE OPHTHA LMIC 01/07/2024 [id number] SATHYA PRADO AH B 2022 15 [facility] CEPHALEXIN 250MG CAP TAKE ONE CAPSULE BY MOUTH EVERY 8 HOURS FOR INFECTIO N ORAL 02/18/2024 [id number] ALFONSO MEJÍA 2023 15 [facility] CEPHALEXIN 250MG CAP TAKE ONE CAPSULE BY MOUTH EVERY 8 HOURS FOR INFECTIO N ORAL 04/04/2023 [id number] ALFONSO MEJÍA 2022 21 [facility] DESVENLAFAX INE (EQV-PRISTI Q) 100MG TAB,SA TAKE ONE TABLET BY MOUTH ONCE DAILY ORAL ACTIVE BUNNY FOX 2020 [facility] DICLOFENAC NA 75MG TAB,EC TAKE ONE TABLET BY MOUTH TWICE DAILY NEEDED ORAL ACTIVE FERNANDA BROCK 2016 [facility] DOXEPIN HCL 75MG CAP TAKE 1 CAPSULE BY MOUTH AT BEDTIME ORAL ACTIVE BUNNY FOX 2020 [facility] DOXYCYCLINE HYCLATE 100MG TAB TAKE ONE TABLET BY MOUTH TWICE DAILY ORAL 10/07/2023 [id number] 4 [facility]UNNY FOX 2023 14 [facility] EMPAGLIFLOZ IN 25MG TAB TAKE ONE-HALF TABLET BY MOUTH ONCE DAILY FOR DIABETES ORAL DISCONT INUED BY PROVIDE R 01/29/2024 [id number] GUILLERMO,AL ICE 2022 45 [facility] EZETIMIBE 10MG TAB TAKE ONE TABLET BY MOUTH ONCE DAILY FOR HIGH CHOLESTE ROL TO LOWER CHOLESTE ROL ORAL ACTIVE 04/16/2025 [id number] GUILLERMO,AL ICE 2024 90 [facility] EZETIMIBE 10MG TAB TAKE ONE TABLET BY MOUTH ONCE DAILY TO LOWER CHOLESTE ROL ORAL DISCONT INUED (EDIT) 04/08/2025 [id number] 5 GUILLERMO,AL ICE 2024 90 [facility] EZETIMIBE 10MG TAB TAKE ONE TABLET BY MOUTH ONCE DAILY TO LOWER CHOLESTE ROL ORAL 01/29/2024 [id number] GUILLERMO,AL ICE 2022 90 [facility] GLUCAGON 1MG/BECKY INJ,EMERGEN CY KIT INJECT 1 INJECTIO N INTRAMUS CULARLY ONE TIME NEEDED FOR LOW BLOOD SUGAR INTRAM USCULA R 12/05/2023 [id number] 4 GUILLERMO,AL ICE 2023 1 [facility] GLUCOSE CHEW TAB TAB,CHEWABL E CHEW FOUR TABLETS BY MOUTH ONE TIME NEEDED ORAL ACTIVE GUILLERMO,AL ICE 2020 [facility] INSULIN,ASP ART,HUMAN (EQV-NOVOLO G) 100 UNIT/ML,FLE XPEN,3ML INJECT 22 UNITS SUBCUTAN EOUSLY THREE TIMES A DAY BEFORE MEALS FOR DIABETES SUBCUT ANEOUS ACTIVE 11/04/2024 [id number] 5 GUILLERMO,AL ICE 2024 25 [facility] INSULIN,GLA RGINE-YFGN 100UNIT/ML INJ PEN,3ML INJECT 30 UNITS SUBCUTAN EOUSLY ONCE DAILY INCREASE BY ONE UNIT A DAY UNTIL MORNING BLOOD GLUCOSE LESS THAN 130 OR TO A MAXIMUM OF 50 UNITS DAILY SUBCUT ANEOUS DISCONT INUED BY PROVIDE R 01/24/2024 [id number] 4 GUILLERMO,AL ICE 2023 15 [facility] INSULIN,GLA RGINE-YFGN 100UNIT/ML INJ PEN,3ML INJECT 28 UNITS SUBCUTAN EOUSLY ONCE DAILY FOR DIABETES INCREASE BY ONE UNIT A DAY UNTIL MORNING BLOOD GLUCOSE LESS THAN 130 OR TO A MAXIMUM OF 50 UNITS DAILY INCREASE BY ONE UNIT A DAY UNTIL MORNING BLOOD GLUCOSE LESS THAN 130 OR TO A MAXIMUM OF 50 UNITS DAILY SUBCUT ANEOUS DISCONT INUED (EDIT) 11/04/2023 [id number] 4 GUILLERMO,AL ICE 2023 15 [facility] INSULIN,GLA RGINE-YFGN 100UNIT/ML INJ PEN,3ML INJECT 22 UNITS SUBCUTAN EOUSLY ONCE DAILY SUBCUT ANEOUS DISCONT INUED (EDIT) 04/21/2024 [id number] 4 GUILLERMO,AL ICE 2023 10 [facility] INSULIN,GLA RGINE-YFGN 100UNIT/ML INJ PEN,3ML INJECT DIRECTED SUBCUTAN EOUSLY ONCE DAILY START AT 40 UNITS PER DAY. IF BLOOD SUGAR REMAINS ELEVATED , MAY INCREASE TO 45 UNITS PER DAY. IF STILL ELEVATED , YOU MAY INCREASE TO 50 UNITS PER DAY SUBCUT ANEOUS 02/03/2024 [id number] 4 GUILLERMO,AL ICE 2023 15 [facility] KETOCONAZOL E 2% CREAM,TOP APPLY A SMALL AMOUNT TOPICALL Y TWICE DAILY FUNGAL INFECTIO N TOPICA L ACTIVE 06/22/2024 [id number] 4 GUILLERMO,AL ICE 2023 30 [facility] [place] MUPIROCIN 2% OINT,TOP APPLY THIN LAYER TOPICALL Y TWICE DAILY FOR SKIN INFECTIO N TOPICA L 04/02/2024 [id number] GUILLERMO,AL ICE 2023 22 [facility] PREGABALIN 200MG CAP,ORAL TAKE ONE CAPSULE BY MOUTH TWICE DAILY FOR PAIN ORAL ACTIVE 05/07/2024 [id number] 5 GUILLERMO,AL ICE 2023 60 [facility] PREGABALIN 200MG CAP,ORAL TAKE ONE CAPSULE BY MOUTH TWICE DAILY FOR PAIN ORAL DISCONT INUED (EDIT) 03/09/2024 [id number] 4 BUNNY FOX 2023 60 [facility] PREGABALIN 200MG CAP,ORAL TAKE ONE CAPSULE BY MOUTH TWICE DAILY FOR PAIN ORAL 08/15/2023 [id number] 4 BUNNY FOX 2022 60 [facility] Allergies, Adverse Reactions, Alerts Combined list of allergies from Department of Defense and Veterans Affairs facilities. It does not include entries that were removed or entered in error. Substance Category Reaction Severity Reaction type Status Date Reported Comments Source EMPAGLIFLOZIN Propensity to adverse reactions to drug (finding) Eruption MODERATE active 4 [facility] ERYTHROMYCIN Propensity to adverse reactions to drug (finding) Nausea and vomiting active 6 [facility] [place] METFORMIN Propensity to adverse reactions to drug (finding) Diarrhea active 6 [facility] [place] [facility] Immunizations Combined list of available immunizations from the Department of Defense and Veterans Affairs facilities. Immunization Series Date Given Administered By Site Reaction Lot Number CVX Code Drug [facility] Status Comments Source RSV, BIVALENT, PROTEIN SUBUNIT RSVPREF, DILUENT RECONSTITUTED , 0.5 ML, PF 2024 TY HIGGINS SANDY LEFT DELTO ID [id number] 305 complet ed [facility] INFLUENZA, UNSPECIFIED FORMULATION 2023 88 complet ed oer statement from vet [facility] INFLUENZA, HIGH-DOSE, QUADRIVALENT 2022 GISELATY SANDY LEFT DELTO ID [id number] 197 complet ed [facility] COVID-19 (MODERNA), MRNA, LNP-S, BIVALENT BOOSTER, PF, 50 MCG/0.5 ML OR 25MCG/0.25 ML DOSE 2021 229 complet ed [facility] INFLUENZA, UNSPECIFIED FORMULATION 2021 88 complet ed [facility] TD (ADULT), 5 LF TETANUS TOXOID, PRESERVATIVE FREE, ADSORBED 2021 113 complet ed [facility] INFLUENZA, UNSPECIFIED FORMULATION 2020 88 complet ed [facility] COVID-19 (PFIZER), MRNA, LNP-S, PF, 30 MCG/0.3 ML DOSE 2 2020 208 complet ed PFR; [id number]; 1 [facility] COVID-19 (PFIZER), MRNA, LNP-S, PF, 30 MCG/0.3 ML DOSE 1 2020 208 complet ed PFR; [id number]; 1 [facility] INFLUENZA, INJECTABLE, QUADRIVALENT, PRESERVATIVE FREE 2019 150 complet ed [facility] INFLUENZA, INJECTABLE, QUADRIVALENT, PRESERVATIVE FREE 2018 150 complet ed Site: Right Deltoid [facility] ZOSTER RECOMBINANT 2 2018 187 complet ed [facility] ZOSTER RECOMBINANT 1 2018 187 complet ed [facility] INFLUENZA, TRIVALENT, ADJUVANTED 2017 168 complet ed Site: Right Deltoid [facility] ZOSTER RECOMBINANT 1 2017 187 complet ed no [facility] PNEUMOCOCCAL POLYSACCHARID E PPV23 2017 33 complet ed [facility] INFLUENZA, SEASONAL, INJECTABLE 2016 141 complet ed Site: Left Deltoid [facility] PNEUMOCOCCAL CONJUGATE PCV 13 2016 133 complet ed [facility] TDAP 2016 115 complet ed Site: Right Deltoid [facility] FLU,3 YRS (HISTORICAL) 2015 88 complet ed [facility] FLU,3 YRS (HISTORICAL) 2015 88 complet ed cvs [facility] ZOSTER (HISTORICAL) 2015 121 complet ed cvs [facility] Results Combined list of recent chemistry, hematology and other laboratory results from Department of Defense and Veterans Affairs, ranging from 15 months to all on record, depending upon the facility. Order Name Results Value Reference Range Date Interpretation Specimen Comments Source HEMOGLOBI N A1C PANEL HEMOGLOBIN A1C/HEMOGLO BIN.TOTAL IN BLOOD BY HPLC 12.1 4.0 - 5.6 03/21 H Specimen Type: BLOOD Comment: Values obtained from A1C measurement s can vary. For atypical A1C assays, a reported value of 7.0 could actually be between 6.72 and 7.28 if measured by a reference method. A reported value of 9.0 could actually be between 8.73 and 9.27. Ref: http://www. ngsp.org/[place] Pdata.asp Ordering Provider: BUSHRA FOX Report Released Date/Time: Mar 03, 2024 11:14 AM Reporting Lab: [facility] [address] Performing Lab: [facility] [address] [facility] LIPID PANEL, NON FASTING CHOLESTEROL [MASS/VOLUM E] IN SERUM OR PLASMA 140 mg/dL 03/21 Specimen Type: SERUM Comment: Verified by repeat analysis. Critical result acknowledge d. PROVIDER RUDDY NOTIFIED, , 1515Hrs, JCL Ordering Provider: BUSHRA FOX Report Released Date/Time: Mar 03, 2024 11:14 AM Reporting Lab: [facility] [address] [address] Performing Lab: [facility] [address] [address] [facility] LIPID PANEL, NON FASTING TRIGLYCERID E [MASS/VOLUM E] IN SERUM OR PLASMA 183 mg/dL 0 - 150 03/21 H Specimen Type: SERUM Comment: Verified by repeat analysis. Critical result acknowledge alexander PROVIDER RUDDY NOTIFIED, , 151Hrs, JCL Ordering Provider: BUSHRA FOX Report Released Date/Time: Mar 03, 2024 11:14 AM Reporting Lab: [facility] [address] [address] Performing Lab: [facility] [address] [facility] LIPID PANEL, NON FASTING CHOLESTEROL IN LDL [MASS/VOLUM E] IN SERUM OR PLASMA BY CALCULATION 64 mg/dL 0 - 129 03/21 Specimen Type: SERUM Comment: Verified by repeat analysis. Critical result acknowledge alexander PROVIDER RUDDY NOTIFIED, , 1515Hrs, JCL Ordering Provider: BUSHRA FOX Report Released Date/Time: Mar 03, 2024 11:14 AM Reporting Lab: [facility] [place] [facility] [address] [address] Performing Lab: [facility] [place] [address] [address] [facility] [place] [facility] LIPID PANEL, NON FASTING CHOLESTEROL .TOTAL/CHOL ESTEROL IN HDL [MASS RATIO] IN SERUM OR PLASMA 3.6 03/21 Specimen Type: SERUM Comment: Verified by repeat analysis. Critical result acknowledge d. PROVIDER RUDDY NOTIFIED, , 1516Hrs, JCL Ordering Provider: BUSHRA FOX Report Released Date/Time: Mar 03, 2024 11:14 AM Reporting Lab: [facility] [place] [address] [address] Performing Lab: [facility] [address] [address] [facility]ITALUSE [facility] LIPID PANEL, NON FASTING CHOLESTEROL IN HDL [MASS/VOLUM E] IN SERUM OR PLASMA 39 mg/dL 40 - 60 03/21 L Specimen Type: SERUM Comment: Verified by repeat analysis. Critical result acknowledge d. PROVIDER RUDDY NOTIFIED, , 1516Hrs, JCL Ordering Provider: BUSHRA FOX Report Released Date/Time: Mar 03, 2024 11:14 AM Reporting Lab: [facility]ITAL[facility]ETS [address] [address] Performing Lab: [facility] [place] [address] [address] [facility] [place] [facility] MICROALBU MIN CREATININ E RATIO PANEL MICROALBUMI N/CREATININ E [MASS RATIO] IN URINE 179.8 mg/g 0 - 29.9 03/21 H Specimen Type: URINE No comment entered. Ordering Provider: BUSHRA FOX Report Released Date/Time: Mar 03, 2024 11:14 AM Reporting Lab: [facility] [address] [address] Performing Lab: [facility] [place] [address] [place] [address] [facility] [place] [facility] MICROALBU MIN CREATININ E RATIO PANEL MICROALBUMI N [MASS/VOLUM E] IN URINE 8.1 mg/dL 03/21 Specimen Type: URINE No comment entered. Ordering Provider: BUSHRA FOX Report Released Date/Time: Mar 03, 2024 11:14 AM Reporting Lab: [facility] [place] [facility] [address] [address] Performing Lab: [facility] [place] [facility] [address] [address] [facility] [place] [facility] MICROALBU MIN CREATININ E RATIO PANEL CREATININE [MASS/VOLUM E] IN URINE 45.06 mg/dL 03/21 Specimen Type: URINE No comment entered. Ordering Provider: BUSHRA FOX Report Released Date/Time: Mar 03, 2024 11:14 AM Reporting Lab: [facility] [place] [facility] [address] [address] Performing Lab: [facility] [place] [facility] [address] [address] [facility] [place] [facility] LIVER FUNCTION PROTEIN [MASS/VOLUM E] IN SERUM OR PLASMA 7.6 g/dL 6.0 - 8.3 03/21 Specimen Type: SERUM Comment: Verified by repeat analysis. Critical result acknowledge alexander FOX NOTIFIED, [id number], 1516Hrs, L Ordering Provider: BUSHRA FOX Report Released Date/Time: Mar 03, 2024 11:14 AM Reporting Lab: [facility] [place] [facility] [address] [address] Performing Lab: [facility] [place] [address] [address] [facility] [place] [facility] LIVER FUNCTION ALBUMIN [MASS/VOLUM E] IN SERUM OR PLASMA 3.9 g/dL 3.5 - 5.0 03/21 Specimen Type: SERUM Comment: Verified by repeat analysis. Critical result acknowledge alexander FOX NOTIFIED, , 1515Hrs, JCL Ordering Provider: BUSHRA FOX Report Released Date/Time: Mar 03, 2024 11:14 AM Reporting Lab: [facility] [place] [address] [address] Performing Lab: [facility] [address] [address] [facility] LIVER FUNCTION ALKALINE PHOSPHATASE [ENZYMATIC ACTIVITY/VO LUME] IN SERUM OR PLASMA 78 U/L 40 - 150 03/21 Specimen Type: SERUM Comment: Verified by repeat analysis. Critical result acknowledge dAngeli PROVIDER RUDDY NOTIFIED, , 1515Hrs, JCL Ordering Provider: BUSHRA FOX Report Released Date/Time: Mar 03, 2024 11:14 AM Reporting Lab: [facility] [address] [address] Performing Lab: [facility] [address] [address] [facility] LIVER FUNCTION ASPARTATE AMINOTRANSF ERASE [ENZYMATIC ACTIVITY/VO LUME] IN SERUM OR PLASMA 16 U/L 5 - 34 03/21 Specimen Type: SERUM Comment: Verified by repeat analysis. Critical result acknowledge alexander PROVIDER RUDDY NOTIFIED, , 1515Hrs, JCL Ordering Provider: BUSHRA FOX Report Released Date/Time: Mar 03, 2024 11:14 AM Reporting Lab: [facility] [address] [address] Performing Lab: [facility] [place] [address] [address] [facility] LIVER FUNCTION ALANINE AMINOTRANSF ERASE [ENZYMATIC ACTIVITY/VO LUME] IN SERUM OR PLASMA 27 U/L 03/21 Specimen Type: SERUM Comment: Verified by repeat analysis. Critical result acknowledge alexander PROVIDER RUDDY NOTIFIED, , 1515Hrs, JCL Ordering Provider: BUSHRA FOX Report Released Date/Time: Mar 03, 2024 11:14 AM Reporting Lab: [facility] [place] [address] [address] Performing Lab: [facility] [place] [address] [address] [facility] [place] [facility] LIVER FUNCTION BILIRUBIN.T OTAL [MASS/VOLUM E] IN SERUM OR PLASMA 0.6 mg/dL 0.2 - 1.2 03/21 Specimen Type: SERUM Comment: Verified by repeat analysis. Critical result acknowledge alexander PROVIDER RUDDY NOTIFIED, , 151Hrs, JCL Ordering Provider: BUSHRA FOX Report Released Date/Time: Mar 03, 2024 11:14 AM Reporting Lab: [facility] [place] [address] [address] Performing Lab: [facility] [address] [facility] BASIC METABOLIC PANEL (non-fast ing) UREA NITROGEN [MASS/VOLUM E] IN SERUM OR PLASMA 19 mg/dL 7 - 25 03/21 Specimen Type: SERUM Comment: Verified by repeat analysis. Critical result acknowledge alexander PROVIDER RUDDY NOTIFIED, , 151Hrs, JCL Ordering Provider: BUSHRA FOX Report Released Date/Time: Mar 03, 2024 11:14 AM Reporting Lab: [facility] [address] [address] Performing Lab: [facility] [place] [address] [address] [facility] BASIC METABOLIC PANEL (non-fast ing) GLUCOSE [MASS/VOLUM E] IN SERUM OR PLASMA 504 mg/dL 65 - 100 03/21 Specimen Type: SERUM Comment: Verified by repeat analysis. Critical result acknowledge alexander FOX NOTIFIED, , 1515Hrs, JCL Ordering Provider: BUSHRA FOX Report Released Date/Time: Mar 03, 2024 11:14 AM Reporting Lab: [facility] [place] [address] [address] Performing Lab: [facility]RR[facility]TR[facility]ITALUSE[address] [address] [facility]ITALUSE [facility] BASIC METABOLIC PANEL (non-fast ing) SODIUM [MOLES/VOLU ME] IN SERUM OR PLASMA 135 mmol/L 135 - 145 03/21 Specimen Type: SERUM Comment: Verified by repeat analysis. Critical result acknowledge d. PROVIDER RUDDY NOTIFIED, , 1515Hrs, JCL Ordering Provider: BUSHRA FOX Report Released Date/Time: Mar 03, 2024 11:14 AM Reporting Lab: [facility] [address] Performing Lab: [facility]TR[facility]ITALUSE[address] [address] [facility] BASIC METABOLIC PANEL (non-fast ing) POTASSIUM [MOLES/VOLU ME] IN SERUM OR PLASMA 4.6 mmol/L 3.5 - 5.0 03/21 Specimen Type: SERUM Comment: Verified by repeat analysis. Critical result acknowledge dAngeli PROVIDER RUDDY NOTIFIED, , 1515Hrs, JCL Ordering Provider: BUSHRA FOX Report Released Date/Time: Mar 03, 2024 11:14 AM Reporting Lab: [facility]TR[facility]ITALUSE[address] [phone] Performing Lab: [facility] [address] [facility]ITALRH[facility] BASIC METABOLIC PANEL (non-fast ing) CHLORIDE [MOLES/VOLU ME] IN SERUM OR PLASMA 100 mmol/L 100 - 110 03/21 Specimen Type: SERUM Comment: Verified by repeat analysis. Critical result acknowledge dAngeli FOX NOTIFIED, , 1515Hrs, JCL Ordering Provider: BUSHRA FOX Report Released Date/Time: Mar 03, 2024 11:14 AM Reporting Lab: [address] [address] Performing Lab: 99 [address] [address] [facility] BASIC METABOLIC PANEL (non-fast ing) CARBON DIOXIDE, TOTAL [MOLES/VOLU ME] IN SERUM OR PLASMA 24 meq/L 20 - 30 03/21 Specimen Type: SERUM Comment: Verified by repeat analysis. Critical result acknowledge alexander PROVIDER RUDDY NOTIFIED, , 1515Hrs, JCL Ordering Provider: BUSHRA FOX Report Released Date/Time: Mar 03, 2024 11:14 AM Reporting Lab: [address] [address] Performing Lab: [address] [id number] [place] [address] BASIC METABOLIC PANEL (non-fast ing) CREATININE [MASS/VOLUM E] IN SERUM OR PLASMA 1.27 mg/dL 0.50 - 1.40 03/21 Specimen Type: SERUM Comment: Verified by repeat analysis. Critical result acknowledge alexander FOX NOTIFIED, , 1515Hrs, JCL Ordering Provider: BUSHRA FOX Report Released Date/Time: Mar 03, 2024 11:14 AM Reporting Lab: [address] [address] Performing Lab: [address] [address] [facility] BASIC METABOLIC PANEL (non-fast ing) GLOMERULAR FILTRATION RATE/1.73 SQ M.PREDICTED [VOLUME RATE/AREA] IN SERUM, PLASMA OR BLOOD BY CREATININE- BASED FORMULA (CKD-EPI 2020) 58 mL/min 60 03/21 L Specimen Type: SERUM Comment: Verified by repeat analysis. Critical result acknowledge alexander FOX NOTIFIED, , 1515Hrs, JCL Ordering Provider: BUSHRA FOX Report Released Date/Time: Mar 03, 2024 11:14 AM Reporting Lab: [facility] [address] [facility] [address] Performing Lab: [facility] [address] [facility] [address] [facility] CBC LEUKOCYTES [#/VOLUME] IN BLOOD BY AUTOMATED COUNT 6.19 10*3/u L 4.50 - 11.00 03/21 Specimen Type: BLOOD No comment entered. Ordering Provider: BUSHRA FOX Report Released Date/Time: Mar 03, 2024 11:14 AM Reporting Lab: [facility] [address] [facility] [address] Performing Lab: [facility] [address] [facility] [address] [facility] [place] [facility] CBC ERYTHROCYTE S [#/VOLUME] IN BLOOD BY AUTOMATED COUNT 4.78 10*6/u L 4.23 - 5.66 03/21 Specimen Type: BLOOD No comment entered. Ordering Provider: BUSHRA FOX Report Released Date/Time: Mar 03, 2024 11:14 AM Reporting Lab: [facility] [address] [facility] [address] Performing Lab[facility] [place] [facility] [address] [facility] [facility] [address] [facility] [place] [facility] CBC HEMOGLOBIN [MASS/VOLUM E] IN BLOOD 14.2 g/dL 12.8 - 17 03/21 Specimen Type: BLOOD No comment entered. Ordering Provider: BUSHRA FOX Report Released Date/Time: Mar 03, 2024 11:14 AM Reporting Lab: [facility] [address] [facility] [address] Performing Lab: [facility] [place] [address] [facility] [address] [facility] [place] [facility] CBC HEMATOCRIT [VOLUME FRACTION] OF BLOOD BY AUTOMATED COUNT 41.4 39.2 - 50.4 03/21 Specimen Type: BLOOD No comment entered. Ordering Provider: BUSHRA FOX Report Released Date/Time: Mar 03, 2024 11:14 AM Reporting Lab: [facility] [address] [facility] [address] Performing Lab: [facility] [address] [facility] [address] [facility] [place] [facility] CBC MCV [ENTITIC VOLUME] BY AUTOMATED COUNT 86.6 fL 82 - 99 03/21 Specimen Type: BLOOD No comment entered. Ordering Provider: BUSHRA FOX Report Released Date/Time: Mar 03, 2024 11:14 AM Reporting Lab: [facility] [address] [facility] [address] Performing Lab: [facility] [address] [facility] [address] [facility] [place] [facility] CBC MCHC [MASS/VOLUM E] BY AUTOMATED COUNT 34.3 g/dL 30.8 - 35.1 03/21 Specimen Type: BLOOD No comment entered. Ordering Provider: BUSHRA FOX Report Released Date/Time: Mar 03, 2024 11:14 AM Reporting Lab: [facility] [address] [facility] [address] Performing Lab: [facility] [place] [facility] [address] [facility] [address] [facility] [place] [facility] CBC PLATELETS [#/VOLUME] IN BLOOD BY AUTOMATED COUNT 201 10*3/u L 140 - 360 03/21 Specimen Type: BLOOD No comment entered. Ordering Provider: BUSHRA FOX Report Released Date/Time: Mar 03, 2024 11:14 AM Reporting Lab: [facility] [address] [facility] [address] Performing Lab: [facility] [address] [facility] [address] [facility] [place] [facility] CBC ERYTHROCYTE DISTRIBUTIO N WIDTH [RATIO] BY AUTOMATED COUNT 13.2 12.0 - 16.0 03/21 Specimen Type: BLOOD No comment entered. Ordering Provider: BUSRHA FOX Report Released Date/Time: Mar 03, 2024 11:14 AM Reporting Lab: [facility] [place] [address] [address] Performing Lab: [facility] [place] [address] [address] [facility] [place] [facility] CBC MCH [ENTITIC MASS] BY AUTOMATED COUNT 29.7 pg 26.2 - 32.6 03/21 Specimen Type: BLOOD No comment entered. Ordering Provider: BUSHRA FOX Report Released Date/Time: Mar 03, 2024 11:14 AM Reporting Lab: [facility] [place] [address] [address] Performing Lab: [facility] [place] [address] [address] [facility] [place] [facility] CBC AND DIFF (AUTO) LEUKOCYTES [#/VOLUME] IN BLOOD BY AUTOMATED COUNT 7.46 10*3/u L 4.50 - 11.00 01/18 Specimen Type: BLOOD Comment: ~For Test: CBC AND DIFF (AUTO) ~STAT ORDER Ordering Provider: TIFFANY MEJÍA Report Released Date/Time: Jan 19, 2024 03:03 PM Reporting Lab: [facility] [place] [address] [address] [facility]forming Lab: [facility] [place] [address] [address] [facility] [place] [facility] CBC AND DIFF (AUTO) ERYTHROCYTE S [#/VOLUME] IN BLOOD BY AUTOMATED COUNT 4.59 10*6/u L 4.23 - 5.66 01/18 Specimen Type: BLOOD Comment: ~For Test: CBC AND DIFF (AUTO) ~STAT ORDER Ordering Provider: TIFFANY MEJÍA Report Released Date/Time: Jan 19, 2024 03:03 PM Reporting Lab: [facility] [place] [address] [address] Performing Lab: [facility] [place] [facility] [address] [facility] [address] [facility] [place] [facility] CBC AND DIFF (AUTO) HEMOGLOBIN [MASS/VOLUM E] IN BLOOD 13.8 g/dL 12.8 - 17 01/18 Specimen Type: BLOOD Comment: ~For Test: CBC AND DIFF (AUTO) ~STAT ORDER Ordering Provider: TIFFANY MEJÍA Report Released Date/Time: Jan 19, 2024 03:03 PM Reporting Lab: [facility] [place] [facility] [address] [facility] [address] Performing Lab: [facility] [place] [address] [address] [facility] [place] [facility] CBC AND DIFF (AUTO) HEMATOCRIT [VOLUME FRACTION] OF BLOOD BY AUTOMATED COUNT 39.5 39.2 - 50.4 01/18 Specimen Type: BLOOD Comment: ~For Test: CBC AND DIFF (AUTO) ~STAT ORDER Ordering Provider: TIFFANY MEJÍA Report Released Date/Time: Jan 19, 2024 03:03 PM Reporting Lab: [facility] [place] [address] [address] Performing Lab: [facility] [place] [facility] [address] [facility] [address] [facility] [place] [facility] CBC AND DIFF (AUTO) MCV [ENTITIC VOLUME] BY AUTOMATED COUNT 86.1 fL 82 - 99 01/18 Specimen Type: BLOOD Comment: ~For Test: CBC AND DIFF (AUTO) ~STAT ORDER Ordering Provider: TIFFANY MEJÍA Report Released Date/Time: Jan 19, 2024 03:03 PM Reporting Lab: [facility] [place] [address] [address] Performing Lab: [facility] [place] [address] [address] [facility] [place] [facility] CBC AND DIFF (AUTO) MCHC [MASS/VOLUM E] BY AUTOMATED COUNT 34.9 g/dL 30.8 - 35.1 01/18 Specimen Type: BLOOD Comment: ~For Test: CBC AND DIFF (AUTO) ~STAT ORDER Ordering Provider: TIFFANY MEJÍA Report Released Date/Time: Jan 19, 2024 03:03 PM Reporting Lab: [facility]ITALRRIVERV[facility]TRN [place] [address] [address] Performing Lab: [facility]PITALRRIVERVIEW REGIONAL MEDICAL CENTERTRN [facility] HOSPITALUSE[address] [address] [facility]ITALRRIVERVIEW REGION[facility] CENTERTRN [place] [facility] CBC AND DIFF (AUTO) PLATELETS [#/VOLUME] IN BLOOD BY AUTOMATED COUNT 228 10*3/u L 140 - 360 01/18 Specimen Type: BLOOD Comment: ~For Test: CBC AND DIFF (AUTO) ~STAT ORDER Ordering Provider: TIFFANY MEJÍA Report Released Date/Time: Jan 19, 2024 03:03 PM Reporting Lab: [facility] [address] [address] Performing Lab: [facility]PITALRHILL [facility] COUNTYN [facility]PITALUSE[address] [address] [facility]ITALRHILL [facility]YN VA HOSPITALUSE [facility] CBC AND DIFF (AUTO) ERYTHROCYTE DISTRIBUTIO N WIDTH [RATIO] BY AUTOMATED COUNT 13.2 12.0 - 16.0 01/18 Specimen Type: BLOOD Comment: ~For Test: CBC AND DIFF (AUTO) ~STAT ORDER Ordering Provider: TIFFANY MEJÍA Report Released Date/Time: Jan 19, 2024 03:03 PM Reporting Lab: [facility]PITALRRIVERVIEW REGIONAL [facility]ICAL CENTERTRN [facility]ITALUSE[address] [address] Performing Lab: [facility]PITALRRIVERVIEW REGIONAL [facility] CENTERTRN VA HOSPITALUSETS [address] [address] [facility]ITALRHILL [facility]YN [facility]ENTERCHUSE [facility] CBC AND DIFF (AUTO) MONOCYTES [#/VOLUME] IN BLOOD BY AUTOMATED COUNT 0.67 10*3/u L 0.30 - 1.10 01/18 Specimen Type: BLOOD Comment: ~For Test: CBC AND DIFF (AUTO) ~STAT ORDER Ordering Provider: TIFFANY MEJÍA Report Released Date/Time: Jan 19, 2024 03:03 PM Reporting Lab: [facility] [place] [facility] [address] [facility] [address] Performing Lab: [facility] [place] [facility] [address] [facility] [address] [facility] [place] CBC AND DIFF (AUTO) MCH [ENTITIC MASS] BY AUTOMATED COUNT 30.1 pg 26.2 - 32.6 01/18 Specimen Type: BLOOD Comment: ~For Test: CBC AND DIFF (AUTO) ~STAT ORDER Ordering Provider: TIFFANY MEJÍA Report Released Date/Time: Jan 19, 2024 03:03 PM Reporting Lab: [facility] [place] [facility] [address] [facility] [address] Performing Lab: [facility] [place] [facility] [address] [facility] [address] [facility] [place] [facility] CBC AND DIFF (AUTO) NEUTROPHILS /100 LEUKOCYTES IN BLOOD BY AUTOMATED COUNT 53.8 43.7 - 75.8 01/18 Specimen Type: BLOOD Comment: ~For Test: CBC AND DIFF (AUTO) ~STAT ORDER Ordering Provider: TIFFANY MEJÍA Report Released Date/Time: Jan 19, 2024 03:03 PM Reporting Lab: [facility] [place] [facility] [address] [facility] [address] Performing Lab: [facility] [place] [facility] [address] [facility] [address] [facility] [place] [facility] CBC AND DIFF (AUTO) LYMPHOCYTES /100 LEUKOCYTES IN BLOOD BY AUTOMATED COUNT 32.3 14.0 - 42.3 01/18 Specimen Type: BLOOD Comment: ~For Test: CBC AND DIFF (AUTO) ~STAT ORDER Ordering Provider: TIFFANY MEJÍA Report Released Date/Time: Jan 19, 2024 03:03 PM Reporting Lab: [facility] [place] [facility] [address] [facility] [address] Performing Lab: [facility] [place] [facility] [address] [facility] [address] [facility] [place] [facility] CBC AND DIFF (AUTO) MONOCYTES/1 00 LEUKOCYTES IN BLOOD BY AUTOMATED COUNT 9.0 5.1 - 13.7 01/18 Specimen Type: BLOOD Comment: ~For Test: CBC AND DIFF (AUTO) ~STAT ORDER Ordering Provider: TIFFANY MEJÍA Report Released Date/Time: Jan 19, 2024 03:03 PM Reporting Lab: [facility] [place] [address] [address] Performing Lab: [facility] [place] [address] [address] [facility] [place] [facility] CBC AND DIFF (AUTO) EOSINOPHILS /100 LEUKOCYTES IN BLOOD BY AUTOMATED COUNT 4.2 0.4 - 6.8 01/18 Specimen Type: BLOOD Comment: ~For Test: CBC AND DIFF (AUTO) ~STAT ORDER Ordering Provider: TIFFANY MEJÍA Report Released Date/Time: Jan 19, 2024 03:03 PM Reporting Lab: [facility] [place] [address] [address] Performing Lab: [facility] [place] [address] [address] [facility] [place] [facility] CBC AND DIFF (AUTO) BASOPHILS/1 00 LEUKOCYTES IN BLOOD BY AUTOMATED COUNT 0.4 0.1 - 2.0 01/18 Specimen Type: BLOOD Comment: ~For Test: CBC AND DIFF (AUTO) ~STAT ORDER Ordering Provider: TIFFANY MEJÍA Report Released Date/Time: Jan 19, 2024 03:03 PM Reporting Lab: [facility] [place] [address] [address] Performing Lab: [facility] [place] [address] [address] [facility] [place] [facility] CBC AND DIFF (AUTO) NEUTROPHILS [#/VOLUME] IN BLOOD BY AUTOMATED COUNT 4.02 10*3/u L 2.20 - 7.60 01/18 Specimen Type: BLOOD Comment: ~For Test: CBC AND DIFF (AUTO) ~STAT ORDER Ordering Provider: TIFFANY MEJÍA Report Released Date/Time: Jan 19, 2024 03:03 PM Reporting Lab: [facility] [place] [facility] [address] [facility] [address] Performing Lab: [facility] [place] [facility] [address] [facility] [address] [facility] [place] [facility] CBC AND DIFF (AUTO) LYMPHOCYTES [#/VOLUME] IN BLOOD BY AUTOMATED COUNT 2.41 10*3/u L 1.00 - 3.20 01/18 Specimen Type: BLOOD Comment: ~For Test: CBC AND DIFF (AUTO) ~STAT ORDER Ordering Provider: TIFFANY MEJÍA Report Released Date/Time: Jan 19, 2024 03:03 PM Reporting Lab: [facility] [place] [facility] [address] [facility] [address] Performing Lab: [facility] [place] [facility] [address] [facility] [address] [facility] [place] [facility] CBC AND DIFF (AUTO) EOSINOPHILS [#/VOLUME] IN BLOOD BY AUTOMATED COUNT 0.31 10*3/u L 0.03 - 0.44 01/18 Specimen Type: BLOOD Comment: ~For Test: CBC AND DIFF (AUTO) ~STAT ORDER Ordering Provider: TIFFANY MEJÍA Report Released Date/Time: Jan 19, 2024 03:03 PM Reporting Lab: [facility] [place] [address] [address] Performing Lab: [facility] [place] [address] [address] [facility] [place] [facility] CBC AND DIFF (AUTO) BASOPHILS [#/VOLUME] IN BLOOD BY AUTOMATED COUNT 0.03 10*3/u L 0.01 - 0.13 01/18 Specimen Type: BLOOD Comment: ~For Test: CBC AND DIFF (AUTO) ~STAT ORDER Ordering Provider: TIFFANY MEJÍA Report Released Date/Time: Jan 19, 2024 03:03 PM Reporting Lab: [facility] [place] [address] [address] Performing Lab: [facility] [place] [address] [address] [facility] [place] CBC AND DIFF (AUTO) IMMATURE GRANULOCYTE S/100 LEUKOCYTES IN BLOOD BY AUTOMATED COUNT 0.3 0.0 - 0.7 01/18 Specimen Type: BLOOD Comment: ~For Test: CBC AND DIFF (AUTO) ~STAT ORDER Ordering Provider: TIFFANY MEJÍA Report Released Date/Time: Jan 19, 2024 03:03 PM Reporting Lab: [facility]ITALUSENY[facility] [address] [facility] [address] Performing Lab: [facility] [address] [facility] [address] [facility] CBC AND DIFF (AUTO) IMMATURE GRANULOCYTE S [#/VOLUME] IN BLOOD 0.02 10*3/u L 0.00 - 0.06 01/18 Specimen Type: BLOOD Comment: ~For Test: CBC AND DIFF (AUTO) ~STAT ORDER Ordering Provider: TIFFANY MEJÍA Report Released Date/Time: Jan 19, 2024 03:03 PM Reporting Lab: [facility] [address] [facility] [address] Performing Lab: [facility] [address] [facility] [address] [facility] CBC AND DIFF (AUTO) NRBC % 0.0 0.0 - 0.0 01/18 Specimen Type: BLOOD Comment: ~For Test: CBC AND DIFF (AUTO) ~STAT ORDER Ordering Provider: TIFFANY MEJÍA Report Released Date/Time: Jan 19, 2024 03:03 PM Reporting Lab: [facility] [address] [facility] [address] Performing Lab: [facility]ITALUSENY[facility] [address] [facility] [address] [facility] CBC AND DIFF (AUTO) NRBC, ABS 0.00 10*3/u L 0.00 - 0.00 01/18 Specimen Type: BLOOD Comment: ~For Test: CBC AND DIFF (AUTO) ~STAT ORDER Ordering Provider: TIFFANY MEJÍA Report Released Date/Time: Jan 19, 2024 03:03 PM Reporting Lab: [facility] [place] [facility] [address] [facility] [address] Performing Lab: [facility] [place] [facility] [address] [facility] [address] [facility] [place] [facility] PT & INR (PROTIME) INR IN PLATELET POOR PLASMA BY COAGULATION ASSAY 1.2 01/18 Specimen Type: PLASMA No comment entered. Ordering Provider: TIFFANY MEJÍA Report Released Date/Time: Jan 19, 2024 02:12 PM Reporting Lab: [facility] [place] [facility] [address] [facility] [address] Performing Lab: [facility] [place] [facility] [address] [facility] [address] [facility] [place] [facility] PT & INR (PROTIME) PROTHROMBIN TIME (PT) 12.6 s 10.0 - 13.1 01/18 Specimen Type: PLASMA No comment entered. Ordering Provider: TIFFANY MEJÍA Report Released Date/Time: Jan 19, 2024 02:12 PM Reporting Lab: [facility] [place] [facility] [address] [facility] [address] Performing Lab: [facility] [place] [facility] [address] [facility] [address] [place] [facility] [place] [facility] MICROSCOP IC AUTOMATED , URINE LEUKOCYTES [#/AREA] IN URINE SEDIMENT BY MICROSCOPY HIGH POWER FIELD TNTC/[ HPF] 0 - 5 01/18 Specimen Type: URINE Comment: If Glucose = >500 and Ketones are positive, please alert the Physician. Ordering Provider: TIFFANY MEJÍA Report Released Date/Time: Jan 19, 2024 02:11 PM Reporting Lab: [facility] [place] [facility] [address] [facility] [address] Performing Lab: [facility] [place] [facility] [address] [facility] [address] [facility] [place] [facility] MICROSCOP IC AUTOMATED , URINE BACTERIA [#/AREA] IN URINE SEDIMENT BY MICROSCOPY HIGH POWER FIELD 3+/[HP F] 01/18 Specimen Type: URINE Comment: If Glucose = >500 and Ketones are positive, please alert the Physician. Ordering Provider: TIFFANY MEJÍA Report Released Date/Time: Jan 19, 2024 02:11 PM Reporting Lab: [facility] [facility] [address] [facility] [address] Performing Lab: [facility] [address] [facility] [address] [place] [facility] [facility] MICROSCOP IC AUTOMATED , URINE ERYTHROCYTE S [#/AREA] IN URINE SEDIMENT BY MICROSCOPY HIGH POWER FIELD TNTC/[ HPF] 0 - 3 01/18 Specimen Type: URINE Comment: If Glucose = >500 and Ketones are positive, please alert the Physician. Ordering Provider: TIFFANY MEJÍA Report Released Date/Time: Jan 19, 2024 02:11 PM Reporting Lab: [facility] [place] [facility] [address] [facility] [address] Performing Lab: [place] [facility] [place] [facility] [address] [facility] [address] [facility]ITALRRIVERVIEW REGIONAL MEDICAL CENTERTRN [facility] HOSPITALUSE [facility] MICROSCOP IC AUTOMATED , URINE LEUKOCYTE CLUMPS [#/VOLUME] IN URINE BY AUTOMATED COUNT PRESEN T/[HPF ] 01/18 Specimen Type: URINE Comment: If Glucose = >500 and Ketones are positive, please alert the Physician. Ordering Provider: TIFFANY MEJÍA Report Released Date/Time: Jan 19, 2024 02:11 PM Reporting Lab: [facility] [place] [facility] [address] [facility] [address] Performing Lab: [place] [facility]ITAL[facility] [address] [facility] [address] [facility]ITAL[facility] [place] [facility] BASIC METABOLIC PANEL (non-fast ing) UREA NITROGEN [MASS/VOLUM E] IN SERUM OR PLASMA 25 mg/dL 7 - 25 01/18 Specimen Type: SERUM No comment entered. Ordering Provider: TIFFANY MEJÍA Report Released Date/Time: Jan 19, 2024 02:12 PM Reporting Lab: [facility]ITALUSEN[facility] [address] [facility] [facility] [address] Performing Lab: [facility]PITALRRIVERVIEW REGIONAL MEDICAL CENTERTRN [facility] HOSPITALUSENY[facility] [address] [facility] [address] [facility]PITALRHILL [facility]YN [facility] HOSPITALUSE [facility] BASIC METABOLIC PANEL (non-fast ing) GLUCOSE [MASS/VOLUM E] IN SERUM OR PLASMA 372 mg/dL 65 - 100 01/18 H Specimen Type: SERUM No comment entered. Ordering Provider: TIFFANY MEJÍA Report Released Date/Time: Jan 19, 2024 02:12 PM Reporting Lab: [facility]PITALRHILL [facility]YN [facility]PITALUSENY[facility] [address] [facility] [facility] [facility] [address] Performing Lab: [facility]ITALRHILL [facility]YN [facility] [address] [address] [facility] BASIC METABOLIC PANEL (non-fast ing) SODIUM [MOLES/VOLU ME] IN SERUM OR PLASMA 141 mmol/L 135 - 145 01/18 Specimen Type: SERUM No comment entered. Ordering Provider: TIFFANY MEJÍA Report Released Date/Time: Jan 19, 2024 02:12 PM Reporting Lab: [facility] [address] [facility] [facility] [address] Performing Lab: [facility]PITALRHILL [facility] [address] [address] [facility] BASIC METABOLIC PANEL (non-fast ing) POTASSIUM [MOLES/VOLU ME] IN SERUM OR PLASMA 4.9 mmol/L 3.5 - 5.0 01/18 Specimen Type: SERUM No comment entered. Ordering Provider: TIFFANY MEJÍA Report Released Date/Time: Jan 19, 2024 02:12 PM Reporting Lab: [facility]RR[facility]TRN [facility] [address] [address] Performing Lab: [facility] [address] [address] [facility] BASIC METABOLIC PANEL (non-fast ing) CHLORIDE [MOLES/VOLU ME] IN SERUM OR PLASMA 105 mmol/L 100 - 110 01/18 Specimen Type: SERUM No comment entered. Ordering Provider: TIFFANY MEJÍA Report Released Date/Time: Jan 19, 2024 02:12 PM Reporting Lab: [facility] [address] [address] Performing Lab: [facility] [address] [facility] BASIC METABOLIC PANEL (non-fast ing) CARBON DIOXIDE, TOTAL [MOLES/VOLU ME] IN SERUM OR PLASMA 22 meq/L 20 - 30 01/18 Specimen Type: SERUM No comment entered. Ordering Provider: TIFFANY MEJÍA Report Released Date/Time: Jan 19, 2024 02:12 PM Reporting Lab: [facility] [address] [address] Performing Lab: [facility]ITAL[facility] TRN [address] [address] [facility] BASIC METABOLIC PANEL (non-fast ing) CREATININE [MASS/VOLUM E] IN SERUM OR PLASMA 1.29 mg/dL 0.50 - 1.40 01/18 Specimen Type: SERUM No comment entered. Ordering Provider: TIFFANY MEJÍA Report Released Date/Time: Jan 19, 2024 02:12 PM Reporting Lab: [facility] [address] [address] Performing Lab: [facility] [address] [address] [facility] BASIC METABOLIC PANEL (non-fast ing) GLOMERULAR FILTRATION RATE/1.73 SQ M.PREDICTED [VOLUME RATE/AREA] IN SERUM, PLASMA OR BLOOD BY CREATININE- BASED FORMULA (CKD-EPI 2020) 57 mL/min 60 01/18 L Specimen Type: SERUM No comment entered. Ordering Provider: TIFFANY MEJÍA Report Released Date/Time: Jan 19, 2024 02:12 PM Reporting Lab[facility] [address] Performing Lab: [facility] [address] [facility] [id number] [facility] Vital Signs Combined list of inpatient and outpatient Vital Signs from Department of Defense and Veterans Affairs, ranging from 12 months to all on record, depending upon the facility. Vital Sign Value Date Comments Source SYSTOLIC BLOOD PRESSURE 129 03/21/19 25 13:29:53 [facility] DIASTOLIC BLOOD PRESSURE 66 025 13:29:53 [facility] PULSE OXIMETRY 94 03/21/2024 13:29:53 [facility] WEIGHT 217 03/21/2024 13:29:53 [facility] BMI 31 kg/m2 03/21/2024 13:29:53 [facility] PAIN 3 03/21/2024 13:29:53 [facility] HEIGHT 70 03/21/2024 13:29:53 [facility] TEMPERATURE 97.5 03/21/2024 13:29:53 [facility] PULSE 93 03/21/2024 13:29:53 [facility] RESPIRATION 20 03/21/2024 13:29:53 [facility] SYSTOLIC BLOOD PRESSURE 110 01/19/20 24 14:09:07 [facility] DIASTOLIC BLOOD PRESSURE 66 024 14:09:07 [facility] PULSE OXIMETRY 98 01/19/2024 14:09:07 [facility] PAIN 3 01/19/2024 14:09:07 [facility] TEMPERATURE 97.7 01/19/2024 14:09:07 [facility] PULSE 76 01/19/2024 14:09:07 [facility] RESPIRATION 16 01/19/2024 14:09:07 [facility] SYSTOLIC BLOOD PRESSURE 118 11/05/19 15:03:49 [facility] DIASTOLIC BLOOD PRESSURE 76 024 15:03:49 [facility] PULSE OXIMETRY 97 11/05/2023 15:03:49 [facility] WEIGHT 209 11/05/2023 15:03:49 [facility] BMI 30 kg/m2 11/05/2023 15:03:49 [facility] PAIN 3 11/05/2023 15:03:49 [facility] TEMPERATURE 97.9 11/05/2023 15:03:49 [facility] PULSE 89 11/05/2023 15:03:49 [facility] RESPIRATION 16 11/05/2023 15:03:49 [facility] SYSTOLIC BLOOD PRESSURE 129 09/22/19 09:24:06 [facility] DIASTOLIC BLOOD PRESSURE 61 024 09:24:06 [facility] PULSE OXIMETRY 94 09/22/2023 09:24:06 [facility] WEIGHT 214 09/22/2023 09:24:06 [facility] BMI 31 kg/m2 09/22/2023 09:24:06 [facility] PAIN 5 09/22/2023 09:24:06 [facility] HEIGHT 70 09/22/2023 09:24:06 [facility] TEMPERATURE 98.2 09/22/2023 09:24:06 [facility] PULSE 88 09/22/2023 09:24:06 [facility] RESPIRATION 20 09/22/2023 09:24:06 [facility] SYSTOLIC BLOOD PRESSURE 108 09/21/19 24 14:37:22 [facility] DIASTOLIC BLOOD PRESSURE 70 024 14:37:22 [facility] PAIN 4 09/21/2023 14:37:22 [facility] TEMPERATURE 98.1 09/21/2023 14:37:22 [facility] PULSE 98 09/21/2023 14:37:22 [facility] RESPIRATION 16 09/21/2023 14:37:22 [facility] Encounters Combined list of: 1) Encounters from Department of Veterans Affairs facilities going backup to the last 18 months, not all [place] inpatient encounters are included; 2) Encounters from the Department of Defense facilities going backup to 280 months. Location Location Details Encounter Type Encounter Number Reason For Visit Attending Provider ADM Date DC Date Status Disposition Source [facility] OFFICE O/P EST HI 40-54 MIN [id number] Diagnos is: ICD-10- CM E11.8 Type 2 diabete s mellitu s with unspeci fied complic ations PANCHO GUILLERMO 10/22 [facility] OFF/OP EST MAY X REQ PHY/QHP [id number] Diagnos is: ICD-10- CM E11.8 Type 2 diabete s mellitu s with unspeci fied complic ations JON DUMONT 11/06 [facility] Outpatient Encounter [id number] Diagnos is: ICD-10- CM E11.8 Type 2 diabete s mellitu s with unspeci fied complic ations PANCHO GUILLERMO 11/07 [facility] OFF/OP EST MAY X REQ PHY/QHP [id number] Diagnos is: ICD-10- CM Z71.89 Other specifi ed mental health counselor SHAYLA Salas 12/10 [facility] OFFICE O/P EST LOW 20-29 MIN [id number] Diagnos is: ICD-10- CM S66.911 A Strain of unsp musc/fa sc/tend at wrs/hnd lv, r hand, CAMILO Mercer 12/10 [facility] OFFICE O/P EST LOW 20-29 MIN [id number] Diagnos is: ICD-10- CM E11.8 Type 2 diabete s mellitu s with unspeci fied complic atAlee Whalen 12/29 [facility] OFF/OP EST MAY X REQ PHY/QHP [id number] Diagnos is: ICD-10- CM Z04.9 Encount er for examina tion and observa tion for unsp reason Kvng SOTELO H 12/30 [facility] OFFICE O/P EST LOW 20-29 MIN [id number] Diagnos is: ICD-10- CM L08.89 Oth local infecti ons of the skin and subcuta neous tissue CAMILO MEJÍA 12/30 [facility] Outpatient Encounter [id number] 12/31 [facility] Outpatient Encounter [id number] 01/06 [facility] EYE EXAM&TX ESTAB PT 1/>VST [id number] Diagnos is: ICD-10- CM E11.9 Type 2 diabete s mellitu s without complic ations ALEJANDRO PRADO 01/06 [facility] Outpatient Encounter [id number] Diagnos is: ICD-10- CM E11.8 Type 2 diabete s mellitu s with unspeci fied complic ations PANCHO GUILLERMO 01/12 [facility] Outpatient Encounter [id number] 01/14 [facility] Outpatient Encounter [id number] 01/14 [facility] Outpatient Encounter [id number] 01/19 [facility] Outpatient Encounter [id number] 01/28 [facility] OFFICE O/P EST HI 40-54 MIN [id number] Diagnos is: ICD-10- CM E11.8 Type 2 diabete s mellitu s with unspeci fied complic ations PANCHO GUILLERMO 01/28 [facility] OFF/OP EST MAY X REQ PHY/QHP [id number] Diagnos is: ICD-10- CM E11.8 Type 2 diabete s mellitu s with unspeci fied complic ations JON DUMONT 01/28 [facility] Outpatient Encounter [id number] 02/12 [facility] OFF/OP EST MAY X REQ PHY/QHP [id number] Diagnos is: ICD-10- CM Z71.89 Other specifi ed mental health counselor Lonny Salinas 03/05 [facility] OFFICE O/P EST LOW 20-29 MIN [id number] Diagnos is: ICD-10- CM L03.032 Celluli tis of left toe CAMILO MEJÍA 03/05 [facility] Outpatient Encounter [id number] 03/10 [facility] OFF/OP EST MAY X REQ PHY/QHP [id number] Diagnos is: ICD-10- CM Z71.89 Other specifi ed mental health counselor KUMAR De La Torre 03/10 [facility] Outpatient Encounter [id number] Diagnos is: ICD-10- CM E11.8 Type 2 diabete s mellitu s with unspeci fied complic ations PANCHO GUILLERMO 03/16 [facility] Outpatient Encounter [id number] 03/24 [facility] Outpatient Encounter [id number] 03/28 [facility] Outpatient Encounter [id number] 04/02 [facility] OFFICE O/P EST HI 40 MIN [id number] Diagnos is: ICD-10- CM E11.8 Type 2 diabete s mellitu s with unspeci fied complic ations PANCHO GUILLERMO 04/02 [facility] Outpatient Encounter [id number] 04/10 [facility] Outpatient Encounter [id number] 04/10 [facility] OFF/OP EST MAY X REQ PHY/QHP [id number] Diagnos is: ICD-10- CM E11.8 Type 2 diabete s mellitu s with unspeci fied complic ations JON DUMONT 04/16 [facility] Outpatient Encounter [id number] 04/17 [facility] Outpatient Encounter [id number] 04/18 [facility] Outpatient Encounter [id number] Diagnos is: ICD-10- CM E11.8 Type 2 diabete s mellitu s with unspeci fied complic ations PANCHO GUILLERMO 04/21 [facility] Out[facility] Encounter [id number] 05/08 [facility] DIAB MANAGE TRN PER INDIV [id number] Diagnos is: ICD-10- CM E11.8 Type 2 diabete s mellitu s with unspeci fied complic ations BALBIR PONCE NNIE P 06/21 [facility] [place] QNHP OL DIG ASSMT&MGMT 5-10 [id number] Diagnos is: ICD-10- CM E11.8 Type 2 diabete s mellitu s with unspeci fied complic ations JACQUELINE GARCIAS IE 06/23 [place] [facility] Outpatient Encounter [id number] 07/01 [facility] Outpatient Encounter [id number] 07/01 [facility] Outpatient Encounter [id number] 07/19 [facility] DIAB MANAGE TRN PER INDIV [id number] Diagnos is: ICD-10- CM E11.8 Type 2 diabete s mellitu s with unspeci fied complic ations JON DUMONT 08/05 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 PANCHO GUILLERMO 08/05 [facility] OFF/OP EST MAY X REQ PHY/QHP [id number] Diagnos is: ICD-10- CM E11.8 Type 2 diabete s mellitu s with unspeci fied complic ations JON DUMONT 08/05 [facility] Out[facility] Encounter [id number] 08/23 [facility] OFF/OP EST MAY X REQ PHY/QHP [id number] Diagnos is: ICD-10- CM Z71.9 Teaching Associate ing, unspeci fied SHAYLA HIGGINS 09/06 [facility] OFF/OP EST MAY X REQ PHY/QHP [id number] Diagnos is: ICD-10- CM Z71.89 Other specifi ed mental health counselor ing SHAYLA HIGGINS 09/20 [facility] Outpatient Encounter [id number] 09/21 [facility] OFFICE O/P EST LOW 20 MIN [id number] Diagnos is: ICD-10- CM E11.8 Type 2 diabete s mellitu s with unspeci fied complic ations Talia FOX 09/21 [facility] Out[facility] Encounter [id number] 10/05 [facility] Out[facility] Encounter [id number] 10/05 [facility] Out[facility] Encounter [id number] 10/14 [facility] Outpatient Encounter [id number] 10/18 [facility] Outpatient Encounter [id number] 10/22 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 Outpatient Encounter [id number] 10/29 [facility] DIAB MANAGE TRN PER INDIV [id number] Diagnos is: ICD-10- CM E11.8 Type 2 diabete s mellitu s with unspeci fied complic ations BALBIR PONCE P 11/02 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 Outpatient Encounter [id number] Diagnos is: ICD-10- CM E11.8 Type 2 diabete s mellitu s with unspeci fied complic ations JON DUMONT 11/04 [facility] (6[facility]GE) QNHP OL DIG ASSMT&MGMT 5-10 [id number] Diagnos is: ICD-10- CM E11.8 Type 2 diabete s mellitu s with unspeci fied complic atYOSSI Zendejas N 11/05 [facility] Out[facility] Encounter [id number] 1.12/30 [facility] [place] 1 [id number] 1. Diagnos is: ICD-10- CM H33.322 Round hole, left eye MERHAR,ALEJANDRO H B 01/10 [facility] Outpatient Encounter [id number] 1.01/11 [facility] Outpatient Encounter [id number] 1.01/11 [facility] OFF/OP EST MAY X REQ PHY/QHP [id number] 1. Diagnos is: ICD-10- CM Z71.89 Other specifi ed mental health counselor SHAYLA Salas 01/18 [facility] OFFICE O/P EST LOW 20 MIN [id number] Diagnos is: ICD-10- CM R31.0 Gross hematur CAMILO León 01/18 [facility] Outpatient Encounter [id number] 01/25 [facility] Out[facility] Encounter [id number] 02/01 [facility] Outpatient Encounter [id number] 02/09 [facility] Outpatient Encounter [id number]/15 [facility] Outpatient Encounter [id number]/16 [facility] OFFICE O/P EST HI 40 MIN [id number] 1. Diagnos is: ICD-10- CM E11.8 Type 2 diabete s mellitu s with unspeci fied complic atTalia Norris 03/21 [facility] Out[facility] En[facility] [id number] [facility] Social History Combined list of available smoking, tobacco, and other social history from Department of Defense and Veterans Affairs facilities. Social History Type Response Date Comment Source Tobacco smoking status [facility] VA-TOBACCO FORMER USER 09/22/2023 [facility] History of tobacco use VA-TOBACCO QUIT 15 YRS OR MORE 09/22/2023 [facility] History of tobacco use VA-TOBACCO QUIT 15 YRS OR MORE 04/03/2022 [facility] History [facility] tobacco use [place]BACCO FORMER USER 04/04/2021 [facility] History [facility] tobacco use [place]AC[place] FORMER USER 12/09/2019 [facility] History of tobacco use [place]-TOBACCO QUIT 15 YRS OR MORE 12/01/2018 [facility] History of tobacco use [place] FOR[place] 01/21/2018 [facility] History of tobacco use QUIT TOBACCO USE > 7 YEARS AGO 01/19/2017 quit 40 myears ago [facility] History of tobacco use QUIT TOBACCO USE > 7 YEARS AGO 11/30/2015 quit in 1979 [facility] History of tobacco use QUIT TOBACCO USE > 7 YEARS AGO 07/09/2001 quit 1980 [facility] Plan of Care List of future care activities from Department of [facility] Affairs facilities. Additional future care activities may be listed in the Assessment and Plan section. Date/Time Care Activity Care Activity Detail Billi ty 09/19/2024 AMBULATORY - MEDICINE AMBULATORY - MEDICI [facility]
--- OUTSIDE RECORDS SUMMARY | 2024-04-22 16:13 | XMS_ITS | Encounter Summary ---
Author Name [facility] [facility] Address [address] [place] [address] Care Team Providers Care Assistant Plant Control Operator Name Role Phone BUNNY FOX Primary Care [...] PART B Dec 07, 2014 PART B [id number] MECCA STEVENSON PATIENT MEDICARE (WNR) MEDICARE (M) PART A Jan 07, 2013 PART A [id number] MECCA STEVENSON PATIENT Selected Encounter This section includes the information on record at [place] for the Encounter. Date/Time Encounter Type Encounter Description Reason Pro vider Source IHE Encounter Template Text not used by [place]
--- OUTSIDE RECORDS SUMMARY | 2024-04-22 16:13 | XMS_ITS ---
Author Name [facility] [facility] [place] [facility] [place] Address [address] [place] [id number] Care Team Providers Care Rolling Mill Operator Helper Name Role Phone BUNNY FOX Primary Care [...] PART B Dec 07, 2014 PART B [id number] MECCA STEVENSON PATIENT MEDICARE (WNR) MEDICARE (M) PART A Jan 07, 2013 PART A [id number] MECCA STEVENSON PATIENT Selected Encounter This section includes the information on record at [place] for the Encounter. Date/Time Encounter Type Encounter Description Reason Provider Source Jan 19, 2024 02:00 PM OFF/OP EST MAY X REQ PHY/QHP PRIMARY CARE/MEDICINE ICD-10-CM Z71.89 Other specified counseling JUANIS VALENTE E Encounter Template Text not used by [place] Assessments - Encounter Diagnoses This section includes the primary and secondary diagnoses documented for the Encounter. Date/Time Primary/Secondary Diagnosis Diagnosis Name Provider Source Jan 19, 2024 02:21 PM PRIMARY Other specified counseling JUANIS VALENTE [place] [facility] Plan of Treatment: Future Appointments (+ 6 months) and Future Tests (+/- 45 days) The Plan of Treatment section includes future care activities for the patient [facility] [place] [facility] This section includes future appointments and future orders which are active, pending or scheduled. Future Appointments This section includes appointments that were scheduled to occur 6 months from the date of the Encounter, up to a maximum of 20 appointments. The data comes from all [facility]. Appointment Date/Time Appointment Type Appointme nt Facility Name Jan 26, 2024 02:00 PM AMBULATORY - MEDICINE [facility] Mar 21, 2024 01:30 PM AMBULATORY MEDICINE [facility] Mar 25, 2024 01:40 PM AMBULATORY MEDICINE [facility] Mar 25, 2024 02:30 PM AMBULATORY MEDICINE [facility] Active, Pending, and Scheduled Orders This section includes a listing of several types of active, pending, and scheduled orders, including clinic medications orders, diagnostic test orders, procedure orders and consult orders; where the start date of the order is 45 days before the date of the Encounter or 45 days after the date of theEncounter. The data comes from all [facility]. Test Date/Time Test Type Test Details Facility Name Jan 19, 2024 03:21 PM Consult Order COMMUNITY CARE-UROLOGY Cons Eligibility Examiner's Choice [facility] Lab Results: +/- 30 days of [...] Range Comment Jan 19, 2024 03:53 PM [facility] CBC AND DIFF (AUTO) Specimen Type: BLOOD Comment: ~For Test: CBC AND DIFF (AUTO) ~STAT ORDER Ordering Provider: SAM MEJÍA Report Released Date/Time: Jan 19, 2024 03:03 PM Reporting Lab: [address] [address] Performing Lab: [facility] [address] [facility] [address] WBC 7.46 10*3/uL 4.50-11.00 RBC 4.59 10*6/uL [...] 10*3/uL 0.00-0.00 Jan 19, 2024 02:43 PM [facility] PT & INR (PROTIME) Specimen Type: PLASMA No comment entered. Ordering Provider: SAM MEJÍA Report Released Date/Time: Jan 19, 2024 02:12 PM Reporting Lab: [facility] [address] [facility] [address] Performing Lab: [address] [address] INR 1.2 PROTIME 12.6 s 10.0-13.1 Jan 19, 2024 02:43 PM [facility] MICROSCOPIC AUTOMATED, URINE Specimen Type: URINE Comment: If Glucose = >500 and Ketones are positive, please alert the Physician. Ordering Provider: SAM MEJÍA Report Released Date/Time: Jan 19, 2024 02:11 PM Reporting Lab: [facility] [address] [facility] [address] Performing Lab: [address] [address] UA WBC TNTC /[HPF] 0-5 UA BACTERIA 3+ /[HPF] NoneObs UA RBC TNTC /[HPF] 0-3 UA WBC CLUMPS PRESENT /[HPF] None Jan 19, 2024 02:43 PM [facility] BASIC METABOLIC PANEL (non-fasting) Specimen Type: SERUM No comment entered. Ordering Provider: SAM MEJÍA Report Released Date/Time: Jan 19, 2024 02:12 PM Reporting Lab: [address] [address] Performing Lab: [address] [address] UREA NITROGEN 25 mg/dL 7-25 GLUCOSE 372 mg/dL H 65-100 SODIUM 141 mmol/L 135-145 POTASSIUM 4.9 mmol/L 3.5-5.0 CHLORIDE 105 mmol/L 100-110 CO2 22 meq/L 20-30 CREATININE, Serum 1.29 mg/dL 0.50-1.40 eGFR(CKD-EPI 2020) 57 mL/min L >60 Jan 19, 2024 02:43 PM [facility] URINALYSIS CLEAN CATCH Specimen Type: URINE Comment: If Glucose = >500 and Ketones are positive, please alert the Physician. Ordering Provider: SAM MEJÍA Report Released Date/Time: Jan 19, 2024 02:11 PM Reporting Lab: [facility] [address] [facility] [address] Performing Lab: [address] [address] UA COLOR Brown Yellow UA APPEARANCE Ex.Turbid [...] PM 97.7 76 110/66 16 98 3 [place] [facility] [place] [facility] Social History: Smoking Status (Most current) [...] took place. Date/Time Current Smoking Status Comment [facility] Sep 22, 2023 09:30 AM [facility]ACCO [facility] Tobacco Use History This section includes a history of the smoking, or tobacco-related health factors, that were collected on or before the date of the Encounter. The data comes from the [place] facility where the Encounter took place. Date/Time Smoking Status/Tobac co Use Comment Facility Sep 22, 2023 09:30 AM [place]-TOBACCO QUIT 15 YRS [place] MORE [place] [facility] [facility] Apr 03, 2022 03:00 PM [place]-TOBACCO FORMER USER [place] [facility] [place] [facility] Apr 03, 2022 03:00 PM VA-TOBACCO QUIT 15 YRS OR MORE [place] [facility] [place] [facility] Apr 04, 2021 03:30 PM [place]-TOBACCO FORMER USER [place] [facility] [place] [facility] Apr 04, 2021 03:30 PM VA-TOBACCO QUIT 15 YRS [place] MORE [place] [facility] [place] [facility] Dec 09, 2019 01:00 PM [place]-TOBACCO FORMER USER [place] [facility] [place] [facility] Dec 09, 2019 01:00 PM [facility] Dec 01, 2018 01:48 PM [facility]BACCO [facility] Dec 01, 2018 01:48 PM VA-TOBACCO QUIT 15 YRS OR MORE [facility] Jan 21, 2018 03:37 PM VA-TOBACCO FOR[facility] USER [facility] Jan 21, 2018 03:37 PM VA-TOBACCO QUIT 15 YRS OR MORE [facility] Jan 19, 2017 01:56 PM QUIT TOBACCO USE > 7 YEARS AGO quit 40 myears ago [facility] Nov 30, 2015 01:04 PM QUIT TOBACCO USE > 7 YEARS AGO quit in 1979 [facility] July 09, 2001 08:11 AM QUIT TOBACCO USE > 7 YEARS AGO quit 1979 [facility] Pathology Reports: +/- 30 days of [...] the Encounter. The data comes from [facility] facilities. Date/Time Pathology Report Provider Source Jan 19, 2024 02:43 PM LR MICROBIOLOGY RE PORT: Reporting Lab: [facility] [CLIA# [id number]] [address] [place] [address] Accession [UID]: [id number] [[id number]] Received: Jan 20, 2024@13:15 Collection sample: URINE CLEAN CATCH Collection date: Jan 19, 2024 14:43 Site/Specimen: URINE Provider: SAM MEJÍA Comment on specimen: POSITIVE CULTURE RESULTS MAY NOT REPRESENT CLINICAL INFECTION. CONSIDER NEED FOR ANTIBIOTICS IN THE CONTEXT OF UTI SYMPTOMS. Test(s) ordered: URINE CULTURE(MWROX).......... completed: Jan 25, 2024 10:45 * BACTERIOLOGY FINAL REPORT => Jan 25, 2024 10:45 [facility] CODE: [id number] CULTURE RESULTS: ESCHERICHIA COLI - Quantity: >100,000 [...] --=--=--=--=--=--=--=--=-- Performing Laboratory: Bacteriology Report Performed By: [facility] [CLIA# [id number]] [address] [place] [address] [facility] BESS [place] [facility] Encounter Notes: All associated encounter notes This section contains the clinical notes associated to the Encounter. Date/Time Encounter Note(s) Provider Source Jan 19, 2024 02:15 PM PRIMARY CARE OUTPATIENT NOTE: LOCAL TITLE: AMBULATORY/OUTPATIENT CARE NOTE STANDARD TITLE: PRIMARY CARE OUTPATIENT NOTE DATE OF NOTE: JAN 19, 2024@14:15 ENTRY DATE: JAN 19, 2024@14:15:27 AUTHOR: KARIN VALENTE EXP COSIGNER: URGENCY: STATUS: COMPLETED F: Walk In D/A: Vet presents to primary care with complaint of hematuria for 7 days. Vet with DMII, CKD and Hep C on ASA daily. Vet states he had a BM on 01/11 and noticed blood in the toilet. He reports since he has noticed blood with clots each time he urinates. He has not noticed any blood with BM after initial report. Vet states he feels as though it is a good amount of blood. Denies any pain, fever or chills. Vet denies any change in frequency or amount of urine, denies any abnormal smell. Vet also denies any increase in fatigue or changes in breathing. Of note last U/A in record done August 30 shows hematuria also. Vet not currently engaged with urologic care and denies any history of urinary or prostate issues. Consulted with CT provider who orders labs. R: Vet to lab and will return to see CT provider /joanna/ Karin Valente MSN RN CNL Primary Care RN Signed: 01/19/2024 14:21 KARIN VALENTE [facility]
--- OUTSIDE RECORDS SUMMARY | 2024-04-22 16:14 | XMS_ITS | Encounter Summary ---
Author Name [facility] [place] [facility] [place] Organization [facility] [place] Address [address] [place] [address] Care Team Providers Care Petrol Tanker Driver Name Role Phone BUNNY FOX Primary Care [...] PART B Dec 07, 2014 PART B [id number] 09A MECCA CHU PATIENT MEDICARE (WNR) MEDICARE (M) PART A Jan 07, 2013 PART A [id number] 09A GRAHAMMECCA BLANCA PATIENT Selected Encounter This section includes the information on record at [place] for the Encounter. Date/Time Encounter Type Encounter Description Reason Pro vider Source Apr 06, 2024 04:10 PM Outpatient Encounter ENDOCRINOLOGY IHE Encounter Template Text not used by [place] Plan of Treatment: Future Appointments (+ 6 months) and Future Tests (+/- 45 days) The Plan of Treatment section includes future care activities for the patient from all [place] treatmentfacilities. This section includes future appointments and future orders which are active, pending or scheduled. Future Appointments This section includes appointments that were scheduled to occur 6 months from the date of the Encounter, up to a maximum of 20 appointments. The data comes from all [place] treatment facilities. Appointment Date/Time Appointment Type Appointme nt Facility Name Sep 19, 2024 03:00 PM AMBULATORY - MEDICINE [facility] Lab Results: +/- 30 days of the encounter This section includes the Chemistry and Hematology Lab Results on record with [place] for the patient. Radiology Reports and Pathology Reports are provided separately, in subsequent sections. Lab Results This section contains the Chemistry/Hematology Results that were resulted 30 days before or 30 daysafter the date of the Encounter. Date/Time Source Result Type Result - Unit Interpretation Reference Range Comment Mar 21, 2024 02:07 PM [facility] HEMOGLOBIN A1C PANEL Specimen Type: BLOOD Comment: Values obtained from A1C measurements can vary. For atypical A1C assays, a reported value of 7.0 could actually be between 6.72 and 7.28 if measured by a reference method. A reported value of 9.0 could actually be between 8.73 and 9.27. Ref: http://www.ngs p.org/CAPdata. asp Ordering Provider: APRIL FOX AM Report Released Date/Time: Mar 03, 2024 11:14 AM Reporting Lab: [facility] [address] [facility] [address] Performing Lab: [facility] [address] [facility] [address] HEMOGLOBIN A1C 12.1 H 4.0-5.6 Mar 21, 2024 02:07 PM [facility] LIPID PANEL, NON FASTING Specimen Type: SERUM Comment: Verified by repeat analysis. Critical result acknowledged. PROVIDER RUDDY NOTIFIED, [id number], 1516Hrs, JCL Ordering Provider: APRIL FOX AM Report Released Date/Time: Mar 03, 2024 11:14 AM Reporting Lab: [facility] [address] [facility] [address] Performing Lab: [address] [address] CHOLESTEROL 140 mg/dL TRIGLYCERIDE 183 mg/dL H 0-150 LDL calculated 64 mg/dL 0-129 CHOL/HDL 3.6 HDL CHOLESTEROL 39 mg/dL L 40-60 Mar 21, 2024 02:07 PM [facility] MICROALBUMIN CREATININE RATIO PANEL Specimen Type: URINE No comment entered. Ordering Provider: APRIL FOX AM Report Released Date/Time: Mar 03, 2024 11:14 AM Reporting Lab: [address] [address] Performing Lab: [address] [address] MICROALBUMIN/C REATININE RATIO 179.8 mg/g H 0-29.9 MICROALBUMIN,Q UANTITATIVE 8.1 mg/dL RR UNAVAIL CREATININE URINE 45.06 mg/dL Mar 21, 2024 02:07 PM [facility] LIVER FUNCTION Specimen Type: SERUM Comment: Verified by repeat analysis. Critical result acknowledged. PROVIDER RUDDY NOTIFIED, , 1516Hrs, JCL Ordering Provider: APRIL FXO AM Report Released Date/Time: Mar 03, 2024 11:14 AM Reporting Lab: [address] [address] Performing Lab: [address] [address] PROTEIN,TOTAL 7.6 g/dL 6.0-8.3 ALBUMIN 3.9 g/dL 3.5-5.0 ALKALINE PHOSPHATASE 78 U/L 40-150 AST 16 U/L 5-34 ALT 27 U/L BILIRUBIN, TOTAL 0.6 mg/dL 0.2-1.2 Mar 21, 2024 02:07 PM [facility] BASIC METABOLIC PANEL (non-fasting) Specimen Type: SERUM Comment: Verified by repeat analysis. Critical result acknowledged. PROVIDER RUDDY NOTIFIED, , 151Hrs, JCL Ordering Provider: APRIL FOX AM Report Released Date/Time: Mar 03, 2024 11:14 AM Reporting Lab: [address] [address] Performing Lab: [address] [address] UREA NITROGEN 19 mg/dL 7-25 GLUCOSE 504 mg/dL HH 65-100 SODIUM 135 mmol/L 135-145 POTASSIUM 4.6 mmol/L 3.5-5.0 CHLORIDE 100 mmol/L 100-110 CO2 24 meq/L 20-30 CREATININE, Serum 1.27 mg/dL 0.50-1.40 eGFR(CKD-EPI 2020) 58 mL/min L >60 Mar 21, 2024 02:07 PM [facility] CBC Specimen Type: BLOOD No comment entered. Ordering Provider: APRIL FOX AM Report Released Date/Time: Mar 03, 2024 11:14 AM Reporting Lab: [facility] [address] [facility] [address] Performing Lab: [facility] [address] [facility] [address] WBC 6.19 10*3/uL 4.50-11.00 RBC 4.78 10*6/uL 4.23-5.66 HGB 14.2 g/dL 12.8-17 HCT 41.4 39.2-50.4 MCV 86.6 fL 82-99 MCHC 34.3 g/dL 30.8-35.1 PLT 201 10*3/uL 140-360 RDW-CV 13.2 12.0-16.0 MCH 29.7 pg 26.2-32.6 Social History: Smoking Status (Most current) and Tobacco Use (All prior to encounter date) This section includes the most current, and the historical, smoking and tobacco- related health factors from the [place] facility where the Encounter took place. Current Smoking Status This section includes the most current smoking, or tobacco-related health factor, from the [place] facility where the Encounter took place. Date/Time Current Smoking Status Comment [facility] Sep 22, 2023 09:30 AM VA-TOBACCO FORMER USER [facility] Tobacco Use History This section includes a history of the smoking, or tobacco-related health factors, that were collected on or before the date of the Encounter. The data comes from the [place] facility where the Encounter took place. Date/Time Smoking Status/Tobac co Use Comment Facility Sep 22, 2023 09:30 AM [place]-TOBACCO QUIT 15 YRS OR MORE [facility] Apr 03, 2022 03:00 PM VA-TOBACCO FORMER USER [place] [facility] [place] [facility] Apr 03, 2022 03:00 PM VA-TOBACCO QUIT 15 YRS OR MORE [facility] [place] [facility] Apr 04, 2021 03:30 PM VA-TOBACCO FORMER USER [facility] [place] [facility] Apr 04, 2021 03:30 PM VA-TOBACCO QUIT 15 YRS OR MORE [facility] [place] [facility] Dec 09, 2019 01:00 PM VA-TOBACCO FORMER USER [facility] [place] [facility] Dec 09, 2019 01:00 PM VA-TOBACCO QUIT 15 YRS OR MORE [facility] [place] [facility] Dec 01, 2018 01:48 PM VA-TOBACCO FORMER USER [facility] [place] [facility] Dec 01, 2018 01:48 PM VA-TOBACCO QUIT 15 YRS OR MORE [facility] [place] [facility] Jan 21, 2018 03:37 PM VA-TOBACCO FORMER USER [facility] [place] [facility] Jan 21, 2018 03:37 PM VA-TOBACCO QUIT 15 YRS OR MORE [facility] [place] [facility] Jan 19, 2017 01:56 PM QUIT TOBACCO USE > 7 YEARS AGO quit 40 myears ago [facility] [place] [facility] Nov 30, 2015 01:04 PM QUIT TOBACCO USE > 7 YEARS AGO quit in 1979 [facility] [place] [facility] July 09, 2001 08:11 AM QUIT TOBACCO USE > 7 YEARS AGO quit 1979 [place] [facility] [place] [facility] Encounter Notes: All associated encounter notes This section contains the clinical notes associated to the Encounter. Date/Time Encounter Note(s) Provider Source Apr 06, 2024 04:11 PM ADDENDUM: LOCAL TITLE: Addendum STANDARD TITLE: ADDENDUM DATE OF NOTE: APR 06, 2024@16:11:32 ENTRY DATE: APR 06, 2024@16:11:33 AUTHOR: KATIE KELLEY COSIGNER: URGENCY: STATUS: COMPLETED [place] would like to pick the medication up and the [facility] /adelfo KELLEY CHILD NURSE Signed: 04/06/2024 16:11 Receipt Acknowledged By: 04/15/2024 19:03 /es/ JAYE GUILLERMO MD STAFF PHYSICIAN 04/07/2024 07:32 /adelfo DUMONT RN ========= --- Original Document --- 04/06/24 TELEPHONE NOTE/SPECIALTY CLINIC: and his called stating they need refill on his prescription EZETIMIBE TAB 10MG TAKE ONE TABLET BY MOUTH ONCE DAILY to lower cholesterol Veterans address and phone number have been confirmed /adelfo KELLEY CHILD NURSE Signed: 04/06/2024 16:11 04/07/2024 ADDENDUM STATUS: 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 /adelfo DUMONT RN Signed: 04/07/2024 07:33 KATIE KELLEY [place] [facility] [place] [facility] Apr 06, 2024 04:10 PM TELEPHONE ENCOUNTE R NOTE: LOCAL TITLE: TELEPHONE NOTE/SPECIALTY CLINIC STANDARD TITLE: TELEPHONE ENCOUNTER NOTE DATE OF NOTE: APR 06, 2024@16:10 ENTRY DATE: APR 06, 2024@16:10:31 AUTHOR: KATIE KELLEY EXP COSIGNER: URGENCY: STATUS: COMPLETED TELEPHONE NOTE/SPECIALTY CLINIC Has ADDENDA [place] and his called stating they need refill on his prescription EZETIMIBE TAB 10MG TAKE ONE TABLET BY MOUTH ONCE DAILY to lower cholesterol Veterans address and phone number have been confirmed /adelfo KELLEY CHILD NURSE Signed: 04/06/2024 16:11 04/06/2024 ADDENDUM STATUS: COMPLETED [place] would like to pick the medication up and the [facility] /adelfo KELLEY CHILD NURSE Signed: 04/06/2024 16:11 Receipt Acknowledged By: * AWAITING SIGNATURE * JAYE GUILLERMO 04/07/2024 07:32 /adelfo DUMONT RN 04/07/2024 ADDENDUM STATUS: 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 /joanna/ KENISHA DUMONT RN Signed: 04/07/2024 07:33 KATIE KELLEYL [facility]
--- OUTSIDE RECORDS SUMMARY | 2024-04-22 16:14 | XMS_ITS | Patient Health Record ---
Author Organization [facility] Address [address] [place] [address] Care Team Providers Care Deputy Chief Magistrate Name Role Phone Ramses Motley N.P Primary Care Provider Unav ailable Jorge Leavitt Unavailable [phone] Leah Sutton Unavailable [phone] Reason For Referral No Information Encounters Encounter Location Date Provider Diagnosis [facility] [address] [place] [address] 07/08/2023 Leah Sutton [facility] [address] [place] [address] 07/15/2023 Jorge Leavitt [facility] [address] [place] [address] 10/13/2023 Jorge Leavitt Plan Of Treatment No Information Insurance Providers Payer Name Payer Address Payer Phone Subscriber Number Group Number Insured Name Patient Relationship to Insured Coverage Start Date Coverage End Date [employer] [address] [place] [address] Prasanth George Self - patient is the insured
--- OUTSIDE RECORDS SUMMARY | 2024-04-22 16:14 | XMS_ITS | Data Portability ---
Author Organization [facility] Address [address] [place] [address] Assessment Encounter Date Assessment Date Assessment LastModified by Organization Details LastModified Time 07/29/2021 07/29/2021 [id number] [place] [id number] (COIL TAPER) [facility] MODERATE MUST MEET 2 OUT OF 3 ELEMENTS: PROBLEMS, DATA OR RISK ELEMENT 1: PROBLEMS ADDRESSED 1 OR MORE CHRONIC ILLNESS WITH EXACERBATION OR 2 OR MORE STABLE CHRONIC ILLNESSES OR 1 UNDIAGNOSED NEW PROBLEM OR 1 ACUTE ILLNESS W/SYMPTOMS OR 1 ACUTE COMPLICATED INJURY ELEMENT 2: DATA MUST MEET 1 OF 3 CATEGORIES CATEGORY 1: REVIEW OF PRIOR EXTERNAL NOTES, REVIEW OF RESULTS, ORDERING OF EACH TEST, ASSESSMENT REQUIRING INDEPENDENT HISTORIAN OR CATEGORY 2: INDEPENDENT INTERPRETATION OF TESTS BY ANOTHER PHYSICIAN OR SPECIALIST OR CATEGORY 3: DISCUSSION OF MGT OR TEST INTERPRETATION W/EXTERNAL PHYSICIAN OR SPECIALIST ELEMENT 3: RISK RISK OF COMPLICATIONS AND/OR MORBIDITY OR MORTALITY OF PATIENT MANAGEMENT PROVIDER MUST THOROUGHLY DOCUMENT EACH ELEMENT THAT IS COVERED Not available 07/29/2021 12:15:22 10/30/2021 10/30/2021 [id number] [place] [id number] (COIL TAPER) [facility] MODERATE MUST MEET 2 OUT OF 3 ELEMENTS: PROBLEMS, DATA OR RISK ELEMENT 1: PROBLEMS ADDRESSED 1 OR MORE CHRONIC ILLNESS WITH EXACERBATION OR 2 OR MORE STABLE CHRONIC ILLNESSES OR 1 UNDIAGNOSED NEW PROBLEM OR 1 ACUTE ILLNESS W/SYMPTOMS OR 1 ACUTE COMPLICATED INJURY ELEMENT 2: DATA MUST MEET 1 OF 3 CATEGORIES CATEGORY 1: REVIEW OF PRIOR EXTERNAL NOTES, REVIEW OF RESULTS, ORDERING OF EACH TEST, ASSESSMENT REQUIRING INDEPENDENT HISTORIAN OR CATEGORY 2: INDEPENDENT INTERPRETATION OF TESTS BY ANOTHER PHYSICIAN OR SPECIALIST OR CATEGORY 3: DISCUSSION OF MGT OR TEST INTERPRETATION W/EXTERNAL PHYSICIAN OR SPECIALIST ELEMENT 3: RISK RISK OF COMPLICATIONS AND/OR MORBIDITY OR MORTALITY OF PATIENT MANAGEMENT PROVIDER MUST THOROUGHLY DOCUMENT EACH ELEMENT THAT IS COVERED Not available 10/30/2021 15:23:41 03/28/2022 03/28/2022 [id number] [place] [id number] (COIL TAPER) MDM MODERATE MUST MEET 2 OUT OF 3 ELEMENTS: PROBLEMS, DATA OR RISK ELEMENT 1: PROBLEMS ADDRESSED 1 OR MORE CHRONIC ILLNESS WITH EXACERBATION OR 2 OR MORE STABLE CHRONIC ILLNESSES OR 1 UNDIAGNOSED NEW PROBLEM OR 1 ACUTE ILLNESS W/SYMPTOMS OR 1 ACUTE COMPLICATED INJURY ELEMENT 2: DATA MUST MEET 1 OF 3 CATEGORIES CATEGORY 1: REVIEW OF PRIOR EXTERNAL NOTES, REVIEW OF RESULTS, ORDERING OF EACH TEST, ASSESSMENT REQUIRING INDEPENDENT HISTORIAN OR CATEGORY 2: INDEPENDENT INTERPRETATION OF TESTS BY ANOTHER PHYSICIAN OR SPECIALIST OR CATEGORY 3: DISCUSSION OF MGT OR TEST INTERPRETATION W/EXTERNAL PHYSICIAN OR SPECIALIST ELEMENT 3: RISK RISK OF COMPLICATIONS AND/OR MORBIDITY OR MORTALITY OF PATIENT MANAGEMENT PROVIDER MUST THOROUGHLY DOCUMENT EACH ELEMENT THAT IS COVERED [email or web address] Not available 03/28/2022 14:50:15 05/01/2023 05/01/2023 [id number] [place] [id number] (COIL TAPER) MDM MODERATE MUST MEET 2 OUT OF 3 ELEMENTS: PROBLEMS, DATA OR RISK ELEMENT 1: PROBLEMS ADDRESSED 1 OR MORE CHRONIC ILLNESS WITH EXACERBATION OR 2 OR MORE STABLE CHRONIC ILLNESSES OR 1 UNDIAGNOSED NEW PROBLEM OR 1 ACUTE ILLNESS W/SYMPTOMS OR 1 ACUTE COMPLICATED INJURY ELEMENT 2: DATA MUST MEET 1 OF 3 CATEGORIES CATEGORY 1: REVIEW OF PRIOR EXTERNAL NOTES, REVIEW OF RESULTS, ORDERING OF EACH TEST, ASSESSMENT REQUIRING INDEPENDENT HISTORIAN OR CATEGORY 2: INDEPENDENT INTERPRETATION OF TESTS BY ANOTHER PHYSICIAN OR SPECIALIST OR CATEGORY 3: DISCUSSION OF MGT OR TEST INTERPRETATION W/EXTERNAL PHYSICIAN OR SPECIALIST ELEMENT 3: RISK RISK OF COMPLICATIONS AND/OR MORBIDITY OR MORTALITY OF PATIENT MANAGEMENT PROVIDER MUST THOROUGHLY DOCUMENT EACH ELEMENT THAT IS COVERED Not available 05/01/2023 13:44:31 04/08/2024 04/08/2024 [id number] [place] [id number] (COIL TAPER) MDM HIGH MUST MEET 2 OUT OF 3 ELEMENTS: PROBLEMS, DATA OR RISK ELEMENT 1: PROBLEMS 1 OR MORE CHRONIC ILLNESS W/SEVERE EXACERBATION, PROGRESSION MAY REQUIRE HOSPITAL LEVEL CARE OR 1 ACUTE OR CHRONIC ILLNESS OR INJURY THAT POSES A THREAT TO LIFE OR BODILY FUNCTION ELEMENT 2: DATA: MUST MEET 2 OF 3 CATEGORIES CATEGORY 1 REVIEW OF PRIOR EXTERNAL NOTES REVIEW OF THE RESULTS ORDERING OF EACH TEST ASSESSMENT REQUIRING INDEPENDENT HISTORIAN(S) CATEGORY 2: INDEPENDENT INTERPRETATION OF TESTS BY ANOTHER PROVIDER/SPECIALI ST CATEGORY 3: DISCUSSION OF MGT OR TEST INTERPRETATION W/EXTERNAL PHYSICIAN/SPECIAL IST ELEMENT 3: RISK HIGH RISK OF MORBIDITY FROM ADDITIONAL DIAGNOSTIC TESTING OR TREATMENT PROVIDER MUST THOROUGHLY DOCUMENT EACH ELEMENT THAT IS COVERED Not available 04/08/2024 14:26:56 Plan of Treatment Reminders Order Date Submit Date Provider Last Modified By Organization Details Last Modified Time Details Appointments INJECTION 2024 02:30P M DR BOWIE Not available Not available Not available Lab uric acid, serum or plasma 2024 025 [facility], [address] [place] [address], [id number], 04/08/2024 14:31:48 HbA1c (hemoglob in A1c), blood 2024 025 [facility], [address] [place] [address], [id number], 04/08/2024 14:31:48 CMP, serum or plasma 2024 025 [facility], [address] [place] [address], [id number], 04/08/2024 14:31:48 microalbu min, urine 2024 025 [facility], [address] [place] [address], [id number], 04/08/2024 14:31:48 lipid panel, serum 2024 025 [facility], [address] [place] [address], [id number], 04/08/2024 14:31:48 CBC w/ auto diff 2024 025 [facility], [address] [place] [address], [id number], 04/08/2024 14:31:48 PSA, serum or plasma 2024 025 [facility], [address] [place] [address], [id number], 04/08/2024 14:31:48 HbA1c (hemoglob in A1c), blood 2022 023 [facility], [address] [place] [address], [id number], 03/31/2022 11:41:11 CMP, serum or plasma 2022 023 [facility], [address] [place] [address], [id number], 03/28/2022 14:55:14 HbA1c (hemoglob in A1c), blood 2021 022 [facility], [address] [place] [address], [id number], 10/30/2021 15:30:46 CMP, serum or plasma 2021 022 [facility], [address] [place] [address], [id number], 10/30/2021 15:30:46 lipid panel, blood 2021 022 [facility], [address] [place] [address], 73870, 10/30/2021 15:30:46 microalbu min, urine 2021 022 [facility], [address] [place] [address], [id number], 10/30/2021 15:30:46 TSH, serum or plasma 2021 022 [facility], [address] [place] [address], [id number], 10/30/2021 15:30:46 Referral None recorded. Procedures None recorded. Surgeries None recorded. Imaging None recorded. Medication Orders None recorded. Patient TargetsNo targets recorded. Patient Instructions Encounter Date Encounter Id Patient Instructions Last Modified By Organization Details Last Modified Time 07/29/2021 [id number] Peripheral Arterial Disease (PAD): Care Instructions Not available 07/29/2021 12:18:20 10/30/2021 [id number] diabetic foot exam* Not available 10/30/2021 15:23:50 05/01/2023 [id number] Peripheral Arterial Disease (PAD): Care Instructions Not available 05/01/2023 13:48:00 learning about type 2 diabetes Not available 05/01/2023 13:48:00 type 2 diabetes: care instructions Not available 05/01/2023 13:48:00 high blood pressure: care instructions Not available 05/01/2023 13:48:00 learning about high blood pressure Not available 05/01/2023 13:48:00 04/08/2024 [id number] Peripheral Arterial Disease (PAD): Care Instructions Not available 04/08/2024 14:30:29 gout: care instructions Not available 04/08/2024 14:30:30 knee arthritis: care instructions Not available 04/08/2024 14:30:30 learning about type 2 diabetes Not available 04/08/2024 14:30:30 type 2 diabetes: care instructions Not available 04/08/2024 14:30:30 high cholesterol : care instructions Not available 04/08/2024 14:30:30 blood in the urine: care instructions Not available 04/08/2024 14:30:30 Reason for Referral None Reported. Results Created Date Observation Date Name Description Value Unit Range Abnormal Flag Note LastModifiedBy Organization Detail LastModifiedTime Result Notes None recorded. Problems Name Problem SNOMED Code Status Onset Date Resolution Date Notes Provider Name and Address Organization Details Recorded Time Type 2 diabetes mellitus 87490217 Active 2017 [facility] 8 12:08:03 Hyperlip idemia 82456353 Active 2017 [facility] 8 12:08:07 Primary erectile dysfunct ion 003854707 Active 2017 Paty Zamora null, [facility] 8 12:08:25 [facility] hyperten emely 79281595 Active 2017 [facility] 8 12:08:29 Osteoart hritis of knee 873571293 Active 2017 [facility] 8 12:08:41 Supraspi natus tear 272310269 [facility] 8 12:08:52 Gout 06568096 Active 2017 [facility] 8 12:08:56 Depressi ve disorder 29910334 Active 2017 [facility] 8 12:09:00 Neuropat hy due to diabetes mellitus 216452699 [facility] 12:09:08 Peripher al angiopat hy due to diabetes mellitus 265081318 Active 2017 [facility] 8 12:09:20 Abnormal weight loss 747161170 Active 2017 [facility] 8 12:09:43 Steatosi s of liver 577333140 Active 2021 Mike Bowie DO [address] [place] [address], [phone], [facility] 2 13:56:29 Peripher al vascular disease 977403596 Active 2021 bilat iliac stents, right top lift compressor endartere ctomy Mike Bowie DO [address] [place] [address], [phone], [facility] 2 15:25:43 Hematoma of surgical wound of skin due to and followin g surgical procedur e 649189432 Active 2021 Mike Bowie DO [address] [place] [address], [address], [facility] 2 11:59:07 Dehiscen ce of external surgical incision wound 80709885411 9108 Active 2021 Mike Boiwe, [address] [place], [address], [facility] 2 11:59:26 Biju hematuri a 452656450 Active 2024 Mike Bowie, [address] [place], [address], [facility] 5 14:30:11 Problem Notes None recorded. Procedures Surgical History Date Name Laterality Status Provider Name and Address Organization Details Recorded Time 7 Colonoscopy completed Paty Zamora [facility] 01/27/2018 11:30:01 Imaging Results None recorded. Procedure Notes None recorded. Medical Equipment None Reported. Allergies Allergen ID Allergen Name Allergen Category Reaction Reaction Severity Criticality Documentation Date Start Date Code Code System Note Provider Name and Address Organization Details Recorded Time 252 metformin medicatio n Not available Not available Not available 05/11/2017 6809 RxNorm Paty Zamora [facility] 8 12:07:49 253 erythromy yecenia medicatio n Not available Not available Not available 05/11/2017 4053 RxNorm Paty Zamora [facility] 8 12:07:56 Medications Name Sig Start Date Stop Date Status Note LastModified by Organization Details LastModified Time atorvasta tin 80 mg tablet Take 1 tablet every day by oral route. active Not Available Not Available No t Available atorvasta tin 20 mg tablet Take 1 tablet every day by oral route. 10/26 completed Not Available Not Available Not Available ketoconaz ole 2 % shampoo 12/31 completed Not Available Not Available Not Available sucralfat e 1 gram tablet 01/27 completed Not Available Not Available Not Available doxepin 75 mg capsule TAKE 1 CAPSULE BY MOUTH EVERYDAY AT BEDTIME 2024 active Not Available Not Available Not Avai lable valsartan 80 mg tablet Take 1 tablet every day by oral route. active Not Available Not Available No t Available clopidogr el 75 mg tablet TAKE 1 TABLET BY MOUTH EVERY DAY active Not Available Not Available No t Available ciproflox acin 500 mg tablet TAKE 1 TABLET BY MOUTH TWICE A DAY active Not Available Not Available No t Available tamsulosi n 0.4 mg capsule TAKE 1 CAPSULE BY MOUTH EVERY OTHER DAY AT BEDTIME THEN EVERY DAY AT BEDTIME AFTER 3 WEEKS active Not Available Not Available No t Available ranitidin e 300 mg capsule 01/27 completed Not Available Not Available Not Available valsartan 320 mg tablet Take 1 tablet every day by oral route. 10/26 completed Not Available Not Available Not Available docusate sodium 100 mg capsule TAKE 1 CAPSULE BY MOUTH TWICE A DAY FOR 10 DAYS active Not Available Not Available No t Available omeprazol e 20 mg capsule,d elayed release 01/27 completed Not Available Not Available Not Available diclofena c sodium 75 mg tablet,de layed release 01/27 completed Not Available Not Available Not Available levofloxa yecenia 750 mg tablet TAKE 1 TABLET BY MOUTH EVERY DAY FOR 7 DAYS 10/26 completed Not Available Not Available Not Available amoxicill in 875 mg-potass ium clavulana te 125 mg tablet TAKE 1 TABLET BY MOUTH TWICE A DAY 10/26 completed Not Available Not Available Not Available oxycodone 5 mg tablet TAKE 1 TABLET BY MOUTH EVERY 4 HOURS NEEDED FOR PAIN active Not Available Not Available No t Available pregabali n 75 mg capsule active 1 capsule [facility] Not Available Not Available Not Available Novolog FlexPen U-100 Insulin 40 units bid 10 units at noon active Not Available Not Available No t Available Lantus Solostar U-100 Insulin 40u qd nightly active Not Available Not Available No t Available Humalog KwikPen Insulin 42u bid ac 01/08 completed Not Available Not Available Not Available desvenlaf axine succinate ER 50 mg tablet,ex tended release 24 hr TAKE 3 TABLETS BY MOUTH EVERY DAY 05/16 completed Not Available Not Available Not Available desvenlaf axine succinate ER 100 mg tablet,ex tended release 24 hr TAKE 1 TABLET BY MOUTH EVERY DAY active Not Available Not Available No t Available desvenlaf axine ER 100 mg tablet,ex tended release 24 hour take 1 tablet by mouth once a day 04/30 completed needs appointm ent for further refills Not Available Not Available Not Available desvenlaf axine ER 50 mg tablet,ex tended release 24 hour Take one tablet by mouth every day. 01/19 completed Not Available Not Available Not Available empaglifl ozin 25 mg tablet Take 0.5 tablets every day by oral route. active Not Available Not Available No t Available Shingrix (PF) 50 mcg/0.5 mL intramusc ular suspensio n, kit 01/27 completed Not Available Not Available Not Available Vitals Date Recorded Body height Body mass index (BMI) Body weight Provider Name and Address Organization Details Last Updated DateTime 07/29/2021 177.8 cm 34.4 kg/m2 954765.45 g Paty Zamora [facility] 07/29/2021 11:41:45 Date Recorded Body height Body mass index (BMI) Body weight Heart rate Oxygen saturation Oxygen saturation in Arterial blood by Pulse oximetry Systolic blood pressure Diastolic blood pressure Provider Name and Address Organization Details Last Updated DateTime 2 177.8 cm 35.8 kg/m2 932008. 22 g 111 /min 92 % 92 % 144 mm[Hg] 80 mm[Hg] Mike Bowie, DO [address] [place], [address], [facility] 2 15:06:05 Date Recorded Body height Body mass index (BMI) Body weight Heart rate Oxygen saturation Oxygen saturation in Arterial blood by Pulse oximetry Systolic blood pressure Diastolic blood pressure Provider Name and Address Organization Details Last Updated DateTime 3 177.8 cm 35.7 kg/m2 534976. 86 g 98 /min 92 % 92 % 132 mm[Hg] 80 mm[Hg] Mike Bowie, [address] [place], [address], [facility] 3 14:18:16 Date Recorded Body height Body mass index (BMI) Body weight Heart rate Oxygen saturation Oxygen saturation in Arterial blood by Pulse oximetry Systolic blood pressure Diastolic blood pressure Provider Name and Address Organization Details Last Updated DateTime 5 177.8 cm 35.9 kg/m2 244779. 09 g 92 /min 98 % 98 % 120 mm[Hg] 68 mm[Hg] Louise Felix [facility] 13:41:36 Social History Question Answer Notes LastModified by Organizat ion Details LastModified Time Tobacco Smoking Status Former Smoker Not Available [facility] 01/10/2020 03:36:24 What Was The Date Of Your Most Recent Tobacco Screening? 04/08/2024 [email or web address] Information not available 04/08/2024 Do You Or Have You Ever Used Any Other Forms Of Tobacco Or Nicotine? No Information not available 03/28/2022 Sex: Unknown Functional Status None recorded. Mental Status None recorded. Family History Nothing Reported. Medical History No medical history recorded. Immunizations Vaccine Type Date Status Note Provider Nam e and Address Organization Details Recorded Time pneumococcal polysaccharide PPV23 08/26/19 13 completed Mike Bowie DO [address] [place] [address], [address], [facility] 10/26/2020 14:13:32 zoster, unspecified formulation 04/06/19 13 completed Mike Bowie DO [address] [place] [address], [address], [facility] 10/26/2020 14:13:45 zoster, unspecified formulation 07/02/19 18 completed Mike Bowie DO [address] [place] [address], [address], [facility] 10/26/2020 14:13:59 COVID-19, mRNA, LNP-S, PF, 100 mcg/0.5mL dose or 50 mcg/0.25mL dose 05/16/19 21 completed Mike Bowie DO [address] [place] [address], [address], [facility] 10/26/2020 14:14:57 COVID-19, mRNA, LNP-S, PF, 100 mcg/0.5mL dose or 50 mcg/0.25mL dose 06/06/19 21 completed Mike Bowie DO [address] [place] [address], [address], [facility] 10/26/2020 14:15:07 COVID-19, mRNA, LNP-S, PF, 30 mcg/0.3 mL dose 01/16/20 21 completed Paty peck [facility] 01/15/2021 13:31:46 Influenza, split virus, quadrivalent, preservative 12/26/19 21 completed Paty peck [facility] 07/29/2021 09:46:23 Pneumococcal conjugate PCV 13 05/05/19 [facility] 07/[facility]/2021 09:46:38 Tdap 05/05/19 17 brigitte peck [facility] 07/29/2021 09:46:54 COVID-19, mRNA, LNP-S, PF, 30 mcg/0.3 mL dose 07/30/19 22 completed Paty peck [facility] 07/29/2021 13:40:53 COVID-19, mRNA, LNP-S, bivalent, PF, 10 mcg/0.2 mL dose 12/21/19 completed Donya peck [facility] 02/04/2022 14:49:51 influenza, unspecified formulation 12/21/19 [facility]/04/2022 14:50:06 SARS-COV-2 (COVID-19) vaccine, UNSPECIFIED 12/20/19 completed Mike Bowie, DO [address] [place] [address], [place], [address], [facility] 12/20/2022 07:55:33 Influenza, split virus, quadrivalent, preservative 01/21/20 18 [facility] 01/27/2018 11:26:08 COVID-19, mRNA, LNP-S, PF, arlene-sucrose, 30 mcg/0.3 mL 02/15/20 24 completed Faith peck [facility] 02/15/2024 11:30:16 influenza, unspecified formulation 02/15/20 24 [facility] 02/15/2024 11:30:39 Past Encounters Encounter ID Performer Location Encounter Start Date Encounter Closed Date Diagnosis/Indication Diagnosis SNOMED-CT Code Diagnosis ICD10 Code Diagnosis Note [id number] Mike Bowie DO [facility] [address] [address] 07/24/2017 14:40:26 07/24/2017 16:48:43 Type 2 diabetes mellitus 28228012 E11.9 needs a1c and has not done yet will get today Essential hypertension 05307654 I10 excellent bp continues hard work Neuropathy due to diabetes mellitus 202451084 E11.41 no new issues Osteoarthr itis of knee 466295744 M17.11 gets cortisone onject [er dr hilario [place] [id number] Mike Bowie DO [facility] [address] [facility],[place] [address] 01/27/2018 11:05:31 01/27/2018 12:19:25 Type 2 diabetes mellitus 36118251 E11.9 needs a1c and has not done yet will get today last was 8.0 which is down pt forgot to have results sent to us will ask to have sent Depressive disorder 3548 9007 F32.0 here is doing well states sleeps well and denies any major issues Essential hypertension 37354799 I10 excellent bp continues hard work Screening for cardiovascular system disease 740984154 Z13.6 Hepatitis C screening 41 2752751 Z11.59 Abdominal aortic aneurysm screening 357173283 Z13.6 will need US and will have to send results to [facility] Neuropathy due to diabetes mellitus 309203494 E11.41 no new issues same as before no new issues [id number] Mike Bowie DO [facility] [address],[place] [address] 04/30/2018 14:44:22 04/30/2018 15:26:31 Type 2 diabetes mellitus 44118528 E11.9 needs a1c and has not done yet will get today last was 9.0 which is down has been taking his insulin every day without fail takes all of his meds accordingl y Neuropathy due to diabetes mellitus 686405999 E11.41 no new issues same as before no new issues Essential hypertension 96824628 I10 excellent bp continues hard work Basal cell carcinoma of skin 641686503 C44.91 [id number] Mike Bowie [facility] [address],[place] [address] 10/08/2018 14:18:20 10/08/2018 15:07:31 Depressive disorder 24494105 F32.0 here is doing well states sleeps well and denies any major issues Hyperlipidemia 88821478 E78.00 will need to rechk Type 2 jass betes mellitus 27658242 E11.9 needs a1c and has not done yet will get today last was 9.0 which is down has been taking his insulin every day without fail takes all of his meds accordingl y Essential hypertension 17785803 I10 excellent bp continues hard work [id number] Mike Bowie [facility] [address] [address] 12/31/2018 14:22:36 12/31/2018 15:53:50 Depressive disorder 89183097 F32.0 here is doing fair states sleeps well and denies any major issues Type 2 jass betes mellitus 00943331 E11.9 needs a1c and has not done yet last was 7.7 which is down considerab ly from 9.1 has been taking his insulin every day without fail takes all of his meds accordingl y will order lab for early dec Essential hypertension 41930804 I10 excellent bp continues hard work Hepatitis C screening 41 0060000 Z11.59 through the [facility] Active or passive immunization 430226918 Z23 got his flu shot etc from [facility] [id number] June JACQUI Cardenas [facility] [address],[place] [address] 02/16/2019 14:21:15 02/16/2019 15:17:58 Osteoarthritis of right knee joint 2238743147 76378 M17.11 Essential hypertension 95591713 I10 stable Type 2 jass betes mellitus 63332087 E11.65 generally well controlled stressed importance of blood sugar control on recovery for TKR has f/u in a couple weeks with dr bowie [id number] Mike Bowie [facility] [address],[place] [address] 03/04/2019 14:54:16 03/04/2019 15:32:33 Type 2 diabetes mellitus 07319186 E11.9 needs a1c and has not done yet last was 7.7 which is down considerab ly from 9.1 has been taking his insulin every day without fail takes all of his meds accordingl y A1C was 8.1 at [place] earlier this month and needs to be <8.0 for knee surgery Hyperlipidemia 56431871 E78.00 will need to rechk Essential hypertension 80632687 I10 excellent bp continues hard work Osteoarthr itis of knee 484272887 M17.11 [place] [id number] Mike Bowie DO [facility] [address] [facility] [address] 01/09/2020 10:59:41 01/09/2020 11:49:43 Essential hypertension [id number] I10 excellent bp continues hard work Type 2 jass betes mellitus 43253417 E11.9 a1c last was 7.7 despite the most recent gangrenous toe and which is down considerab ly from 9.1 has been taking his insulin every day without fail but on a lower dose while at the hospital but now that he is home his glucose is now averaging 260's will need to increase the insulin; increase lantus to 20 units daily takes all of his meds accordingl y Peripheral angiopathy due to diabetes mellitus [id number] E13.52 s/p am[putatio n doing better slow to heall cont vna and home care sees surgeons weekly will cont to monitor the surgical wound and will have dressings changed by vna until home care can take over pt seems to be more stable now and labwork is stable H/H is also quite good [id number] Mike Bowie, [facility] [address] [facility] [address] [address] [address] 10/26/2020 13:55:58 10/26/2020 14:45:34 Essential hypertension [id number] I10 excellent bp continues hard work Type 2 jass betes mellitus 40103753 E11.9 a1c last was 7.8 and before was 7.7 which is down considerab ly from 9.1 has been taking his insulin every day without fail but on a lower dose while at the hospital but now that he is home his glucose is now averaging 260's will need to increase the insulin; increase lantus to 20 units daily in am and 10 of novolog at lunch the n 40 lantus at nightand 40 novologtak es all of his meds accordingl y Depressive disorder 3548 9007 F32.0 here is doing fair states sleeps well and denies any major issues Neuropathy due to diabetes mellitus 866717247 E11.41 no new issues same as before but clearly better on the lyrica Peripheral angiopathy due to diabetes mellitus 351869431 E13.52 s/p am[putatio n doing better slow to heall cont vna and home care sees surgeons weekly will cont to monitor the surgical wound and will have dressings changed by vna until home care can take over pt seems to be more stable now and labwork is stable H/H is also quite good [id number] Mike Bowie, [facility] [address] [facility],[place] [address] 04/12/2021 08:15:52 04/15/2021 12:03:26 Essential hypertension 97625065 I10 excellent bp continues hard work Hyperlipidemia 70770249 E78.00 will need to rechk Type 2 jass betes mellitus 39537359 E11.9 has nbeen done at [facility] waiting for result last a1c was 7.8 and before was 7.7 which is down considerab ly from 9.1 has been taking his insulin every day without fail but on a lower dose while at the hospital but now that he is home his glucose is now averaging 260's will need to increase the insulin; increase lantus to 20 units daily in am and 10 of novolog at lunch the n 40 lantus at nightand 40 novologtak es all of his meds accordingl y Peripheral vascular disease 976051136 I73.9 legs get sore after exertion Neuropathy due to diabetes mellitus 388307417 E11.41 no new issues same as before but clearly better on the lyrica Depressive disorder 4823 9007 F32.0 here is doing fair states sleeps well and denies any major issues Peripheral angiopathy due to diabetes mellitus 100763641 E13.52 currently we are waiting for input from his angiogram done early march Mike Bowie DO [facility] [address] [facility] [address],[place] [address] 07/15/2021 11:16:59 07/15/2021 14:06:26 Active or passive immunization 259866729 Z23 will bring Vaccine history from the [place] Hematoma o f surgical wound of skin due to and following surgical procedure 647596592 L76.32 will be cont to drain as described by the surgeons orders Dehiscence of external surgical incision wound [id number] 34910 T81.31XD this will be watched with daily dressings and anticipate healing by secondary intention once drainage stops [id number] Mike Bowie DO [facility] [address] [facility],[place] [address] 07/29/2021 11:40:36 07/30/2021 15:07:45 Active or passive immunization 591715349 Z23 will bring Vaccine history from the [place] patient advised of vaccines due Type 2 jass betes mellitus 33470480 E11.9 has nbeen done at [facility] waiting for result last a1c was 7.8 and before was 7.7 which is down considerab ly from 9.1 has been taking his insulin every day without fail but on a lower dose while at the hospital but now that he is home his glucose is now averaging 260's will need to increase the insulin; increase lantus to 20 units daily in am and 10 of novolog at lunch the n 40 lantus at nightand 40 novologtak es all of his meds accordingl ypatient has standing order as of 02/07/21 Dehiscence of external surgical incision wound [id number] 49308 T81.31XD PRIOR:this will be watched with daily dressings and anticipate healing by secondary intention once drainage stopsNOW:t he wound is now well healed and no longer draining and is closed completely no cellulitis Peripheral vascular disease 898182796 I73.9 has now healed but has another follow up with vascular to document via [place] good flow [id number] Mike Bowie DO [facility] [address] [facility],[place] [address] 10/30/2021 15:02:18 10/30/2021 15:31:04 Essential hypertension 77042397 I10 excellent bp continues hard work Type 2 jass betes mellitus 77904590 E11.9 hi s last a1c was 6.8 and he is doing ok as in past he has been up to 7.8 and before was 7.7 which is down considerab ly from 9.1 has been taking his insulin every day without fail but on a lower dose while at the hospital but now that he is home his glucose is now averaging 260's will need to increase the insulin; increase lantus to 80 units daily in am andand 80??? novolog i am not sure about insulin doses as he has this monitored at [facility] all of his meds accordingl ypatient has standing order as of 02/07/21 Advance care planning 71 [id number] Z71.89 done Active or passive immunization 732051982 Z23 will bring Vaccine history from the [place] patient advised of vaccines due Peripheral vascular disease 767675607 I73.9 has now healed but has another follow up with vascular to document via [place] good flowhe will now like to get his knee right fixed so he can get more active [id number] Mike Bowie, [facility] [address] [facility],[place] [address] 03/28/2022 14:10:40 03/28/2022 14:52:08 Type 2 diabetes mellitus 48013530 E11.9 hi s last a1c was 6.9 and he is doing ok as in past he has been up to 7.8 and before was 7.7 which is down considerab ly from 9.1 has been taking his insulin every day without fail but on a lower dose while at the hospital but now that he is home his glucose is now averaging 260's will need to increase the insulin; increase lantus to 80 units daily in am andand 80??? novolog i am not sure about insulin doses as he has this monitored at [facility] all of his meds accordingl ypatient has standing order as of 02/07/21 Essential hypertension 78554973 I10 excellent bp continues hard work Peripheral angiopathy due to diabetes mellitus 797949815 E13.52 currently we are waiting for input from his angiogram done early march Depressive disorder 2734 4144 F32.0 here is doing fair states sleeps well and denies any major issues Peripheral vascular disease 326757176 I73.9 has now healed but has another follow up with vascular to document via [place] good flowdevin will now like to get his knee right fixed so he can get more active Advance care planning 71 [id number] Z71.89 done [id number] Mike Bowie, [facility] [address] [facility] [address],[place] [address] 05/01/2023 12:14:15 05/04/2023 11:30:56 Peripheral vascular disease 999271855 I73.9 has now healed but has another follow up with vascular to document via [place] good flowdevin will now like to get his knee right fixed so he can get more active Neuropathy due to diabetes mellitus 471650464 E11.41 no new issues same as before but clearly better on the lyrica Essential hypertension 79621141 I10 excellent bp continues hard work Type 2 jass betes mellitus 96476335 E11.9 last a1c is around 8 states his sugars running 300'she relates is trying hi s last a1c was 6.9 and he is doing ok as in past he has been up to 7.8 and before was 7.7 which is down considerab ly from 9.1 has been taking his insulin every day without fail but on a lower dose while at the hospital but now that he is home his glucose is now averaging 260's will need to increase the insulin; increase lantus to 80 units daily in am andand 80??? novolog i am not sure about insulin doses as [facility] accordingl ypatient has standing order as of 02/07/21 [id number] Mike Bowie DO [facility] [address] [facility] [address],[place] [address] 04/08/2024 13:29:34 04/08/2024 14:53:55 Essential hypertension 71819586 I10 excellent bp continues hard workno changes in meds med tolerated Hyperlipidemia 26480288 E78.00 will need to rechk Peripheral vascular disease 474106047 I73.9 has another follow up with vascular to document via [place] good flowdevin will now like to get his knees injected with elier so he can get more active Type 2 jass betes mellitus 69642584 E11.[address] overdue has been over a year !!! last time around 8 states his sugars running 300'she relates is trying hi s last a1c was 6.9 and he is doing ok as in past he has been up to 7.8 and before was 7.7 which is down considerab ly from 9.1 has been taking his insulin every day without fail but on a lower dose while at the hospital but now that he is home his glucose is now averaging 260's will need to increase the insulin; increase lantus to 80 units daily in am andand 80??? novolog i am not sure about insulin doses as [facility] accordingl ypsarah has standing order as of 02/07/21 Gout 46381169 M10.9 will need to chk uric acid Osteoarthr itis of knee 533588764 M17.11 will order osirisanjana Biju hematuria [id number] R31.0 Health Concerns Section Related Observation LastModified by Organization Detai ls LastModified Time None Recorded Concern Status LastModified by Organization Details LastModified Time None Recorded Advance Directives Directive None Recorded Payers Encounter Date Sequence Insurance Name Policy Number Policy Mohan Covered Member ID Mohan Member ID Guarantor Name 07/29/2021 1 [place] [employer] Prasanth A Pirog [id number] Prasanth A Pirog 07/29/2021 2 [facility] [id number] Prasanth A Pirog [id number] Prasanth A Pirog 10/30/2021 1 [employer]ARE [place]: [employer] Prasanth A Pirog [id number] Prasanth A Pirog 10/30/2021 2 [facility] [id number] Prasanth A Pirog [id number] Prasanth A Pirog 03/28/2022 1 [place] [employer] Prasanth A Pirog [id number] Prasanth A Pirog 03/28/2022 2 [facility] [id number] 01 Prasanth A Pirog [id number] Prasanth A Pirog 05/01/2023 1 [place] [employer] Prasanth A Pirog [id number] Prasanth A Pirog 05/01/2023 2 [facility] [id number] 01 Prasanth A Pirog [id number] Prasanth A Pirog 04/08/2024 1 [place] [facility] Prasanth Mukherjee Pirog [id number] Prasanth Mukherjee Pirog 04/08/2024 2 [facility] [id number] Prasanth Mukherjee Pirog [id number] Prasanth Mukherjee Pirog Notes Date Note Type Note Provider Name and Address Organization Details Recorded Time 2 text/htm l here for rechk and is doing goodwound is no longer draining and lookd well healed can stop the bandage now Mike Bowie, [address] [place] [address], [phone], [facility] 07/29/2021 12:19:33 2 text/htm l here for rechk and states he is doing fine but had some lab a1c done and was 6.8 ;he was doing pretty Mike Bowie DO [address] [place] [address], [phone], [facility] 10/30/2021 15:28:52 3 text/htm l Diabetes F/UReported bypatient.Context:normal range of home blood sugars (in the low 100s); seeing eye doctor regularly; checking feet regularly Associated Symptoms:no weight gain; no weight loss; no dizziness; no sweats; no headaches; no confusion; no increased thirst; no increased appetite; no increased urination; no blurred vision; no numbness of feet; no calluses on feetHypertension F/UReported bypatient.Medications:[facility] as directed; no side effects from medication Lifestyle:regular exercise; limiting/avoiding salt; compliant with low salt diet Associated Symptoms:no dizziness; no lightheadedness; no chest pain; no shortness of breath; no palpitations; no edema; no calf pain with exertion; no headache here for rechkno major medical issuesno cp no sobdenies any major prob at home Mike Bowie DO [address] [place] [address], [phone], [facility] 03/28/2022 14:51:09 4 text/htm l patient is evaluated via tele/video assessment per patient consent during current pandemic relates is struggling with his dm treatment per the life insurance actuary relates that she is increasing and decreasing doses and it is still elevated sometimes to 300'sfrustrating Mike Bowie DO [address] [place], [address], [facility] 05/01/2023 13:48:12 5 text/htm l Care Management - DiabetesReported bypatient.Self Care:seeing eye doctor yearly for dilated eye exam; checking feet regularly; normal range of home blood sugars (in the low 100s); no side effects from medications Associated Symptoms:symptoms are usually well controlled; no fatigue; no dizziness; no excessive sweating; no headaches; no confusion; no increased thirst; no increased appetite; no increased urination; no blurred vision; no numbness of feet; no calluses on feetCare Management - HypertensionReported bypatient.Self Care:not under emotional stress Severity:symptoms are improving; does not interfere with daily activities Associated Symptoms:no dizziness; no lightheadedness; no chest pain; no shortness of breath; no palpitations; no edema; no calf muscle cramps; no blurred vision; no confusion; no headaches; no fatigue here for rechk 'did well with the antibiotic for the hemorrhagic cystitiscipro took care of it in 2 days and felt much betterbilat knees have been bothering a lot Mike Bowie DO [address] [place], [address], [facility] 04/08/2024 14:31:31
--- OUTSIDE RECORDS SUMMARY | 2024-04-22 16:14 | XMS_ITS ---
Author Name [facility] Organization [facility] Address [address] [place] [address] Care Team Providers Care Consulting Group Analyst Name Role Phone BUNNY FOX Primary Care [...] PART B Dec 07, 2014 PART B [id number] MECCA STEVENSON PATIENT MEDICARE (WNR) MEDICARE (M) PART A Jan 07, 2013 PART A [id number] MECCA STEVENSON PATIENT Selected Encounter This section includes the information on record at [facility] for the Encounter. Date/Time Encounter Type Encounter Description Reason Provider Source August 06, 2023 11:30 AM OFFICE O/P EST [facility] 40 MIN ENDOCRINOLOGY ICD-10-CM E11.8 Type 2 diabetes mellitus with unspecified complications JAYE GUILLERMO [employer] Encounter Template Text not used by [place] Assessments - Encounter Diagnoses This section includes the primary and secondary diagnoses documented for the Encounter. Date/Time Primary/Secondary Diagnosis Diagnosis Name Provider Source August 06, 2023 11:45 AM PRIMARY Type 2 diabetes mellitus with unspecified complications JAYE GUILLERMO [facility] [place] [facility] August 06, 2023 11:45 AM SECONDARY Essential (primary) hypertension MIMAJAYE [facility] [place] [facility] August 06, 2023 11:45 AM SECONDARY Hyperlipidemia, unspecified JAYE GUILLERMO [facility] [place] [facility] August 06, 2023 11:45 AM SECONDARY Obesity, unspecified JAYE GUILLERMO [facility] [place] [facility] August 06, 2023 11:45 AM SECONDARY Type 2 diabetes mellitus w diabetic chronic kidney disease GUILLERMOJAYE [facility] [place] [facility] August 06, 2023 11:45 AM SECONDARY Type 2 diabetes mellitus with diabetic polyneuropathy CUBAJAYE [facility] [place] [facility] Plan of Treatment: Future Appointments (+ 6 months) and Future Tests (+/- 45 days) The Plan of Treatment section includes future care activities for the patient from all [facility] treatment[facility] center[facility]. This section includes future appointments and future orders which are active, pending or scheduled. Future Appointments This section includes appointments that were scheduled to occur 6 months from the date of the Encounter, up to a maximum of 20 appointments. The data comes from all [place] treatment facilities. Appointment Date/Time Appointment Type Appointme nt Facility Name Aug 24, 2023 01:00 PM AMBULATORY - MEDICINE [facility] [place] [facility] Sep 07, 2023 03:30 PM AMBULATORY - MEDICINE [facility] [place] [facility] Sep 21, 2023 02:00 PM AMBULATORY - MEDICINE [facility] [place] [facility] Sep 22, 2023 09:30 AM AMBULATORY - MEDICINE [facility] [place] [facility] Oct 06, 2023 01:00 PM AMBULATORY - MEDICINE [facility] [place] [facility] Nov 03, 2023 02:00 PM AMBULATORY - MEDICINE [facility] [place] [facility] Nov 03, 2023 03:15 PM AMBULATORY - NONE [facility] [place] [facility] Nov 05, 2023 03:00 PM AMBULATORY - MEDICINE [facility] [place] [facility] Nov 30, 2023 11:30 AM AMBULATORY - NONE [facility] [place] [facility] Jan 11, 2024 03:30 PM AMBULATORY - MEDICINE [facility] [place] [facility] 2024 03:00 PM AMBULATORY - MEDICINE [facility] [place] [facility] Jan 19, 2024 02:00 PM AMBULATORY - MEDICINE [facility] [place] [facility] Jan 19, 2024 03:00 PM AMBULATORY - MEDICINE [facility] [place] [facility] Jan 26, 2024 02:00 PM [facility] Lab Results: +/- 30 days of the encounter This section includes the Chemistry and Hematology Lab Results on record with [facility] for the patient. Radiology Reports and Pathology Reports are provided separately, in subsequent sections. Lab Results This section contains the Chemistry/Hematology Results that were resulted 30 days before or 30 daysafter the date of the Encounter. Date/Time Source Result Type Result - Unit Interpretation Reference Range Comment July 20, 2023 12:21 PM [facility] HEMOGLOBIN A1C PANEL Specimen Type: BLOOD [...] Apr 06, 2023 07:48 PM Reporting Lab: [address] [address] Performing Lab: [address] [address] HEMOGLOBIN A1C 11.4 H 4.0-5.6 July 20, 2023 12:21 PM [facility] BASIC METABOLIC PANEL (fasting) Specimen Type: SERUM No comment entered. Ordering Provider: JAYE GUILLERMO Report Released Date/Time: Apr 06, 2023 07:48 PM Reporting Lab: [address] [address] Performing Lab: [address] [address] UREA NITROGEN 21 mg/dL 7-25 GLUCOSE 339 mg/dL H 65-100 SODIUM 137 mmol/L 135-145 POTASSIUM 4.7 mmol/L 3.5-5.0 CHLORIDE 102 mmol/L 100-110 CO2 25 meq/L 20-30 CREATININE, Serum 1.20 mg/dL 0.50-1.40 eGFR(CKD-EPI 2020) 63 mL/min >60 July 20, 2023 12:21 PM [facility] LIPID PANEL FASTING Specimen Type: SERUM No comment entered. Ordering Provider: JAYE GUILLERMO Report Released Date/Time: Apr 06, 2023 07:48 PM Reporting Lab: [facility] [address] [address] Performing Lab: [address] [address] CHOLESTEROL 131 mg/dL TRIGLYCERIDE 122 mg/dL 0-150 LDL calculated 67 mg/dL 0-129 CHOL/HDL 3.3 HDL CHOLESTEROL 40 mg/dL 40-60 July 20, 2023 12:21 PM [facility] MICROALBUMIN CREATININE RATIO PANEL Specimen Type: URINE No comment entered. Ordering Provider: JAYE GUILLERMO Report Released Date/Time: Apr 06, 2023 07:48 PM Reporting Lab: [facility] [address] [address] Performing Lab: [address] [address] MICROALBUMIN/C REATININE RATIO 105.8 mg/g H 0-29.9 MICROALBUMIN,Q UANTITATIVE 6.7 mg/dL RR UNAVAIL CREATININE URINE 63.31 mg/dL Vital Signs: All taken on the encounter date This section contains inpatient and outpatient Vital Signs collected on the date of the Encounter. Date/Time Temperature Pulse Blood Pressure Respiratory Rate SP02 Pain Height Weight Body Mass Index Source August 06, 2023 11:17 AM 96.7 89 133/75 18 98 5 211.4 30 [facility] Social History: Smoking Status (Most current) and Tobacco Use (All prior to encounter date) This section includes the most current, and the historical, smoking and tobacco- related health factors from the [place] facility where the Encounter took place. Current Smoking Status This section includes the most current smoking, or tobacco-related health factor, from the [place] facility where the Encounter took place. Date/Time Current Smoking Status Comment [facility] Apr 03, 2022 03:00 PM VA-TOBACCO FORMER USER [facility] [place] [facility] Tobacco Use History This section includes a history of the smoking, or tobacco-related health factors, that were collected on or before the date of the Encounter. The data comes from the [place] facility where the Encounter took place. Date/Time Smoking Status/Tobac co Use Comment Facility Apr 03, 2022 03:00 PM VA-TOBACCO QUIT 15 YRS OR MORE [facility] [place] [facility] Apr 04, 2021 03:30 PM VA-TOBACCO FORMER USER [facility] [place] [facility] Apr 04, 2021 03:30 PM VA-TOBACCO QUIT 15 YRS OR MORE [facility] [place] [facility] Dec 09, 2019 01:00 PM VA-TOBACCO FORMER USER [facility] [place] [facility] Dec 09, 2019 01:00 PM VA-TOBACCO QUIT 15 YRS OR MORE [facility] [place] [facility] Dec 01, 2018 01:48 PM VA-TOBACCO FORMER USER [facility] [place] [facility] Dec 01, 2018 01:48 PM VA-TOBACCO QUIT 15 YRS OR MORE [facility] [place] [facility] Jan 21, 2018 03:37 PM VA-TOBACCO FORMER USER [facility] [place] [facility] Jan 21, 2018 03:37 PM VA-TOBACCO QUIT 15 YRS OR MORE [facility] [place] [facility] Jan 19, 2017 01:56 PM QUIT TOBACCO USE > 7 YEARS AGO quit 40 myears ago [facility] [place] [facility] Nov 30, 2015 01:04 PM QUIT TOBACCO USE > 7 YEARS AGO quit in 1979 [facility] [place] [facility] July 09, 2001 08:11 AM QUIT TOBACCO USE > 7 YEARS AGO quit 1979 [facility] [place] [facility] Encounter Notes: All associated encounter notes This section contains the clinical notes associated to the Encounter. Date/Time Encounter Note(s) Provider Source August 04, 2023 08:08 AM PHYSICIAN NOTE: LOCAL TITLE: NOTE STANDARD TITLE: PHYSICIAN NOTE DATE OF NOTE: AUGUST 04, 2023@08:08 ENTRY DATE: AUGUST 04, 2023@08:08:32 AUTHOR: JAYE GUILLERMO EXP COSIGNER: URGENCY: STATUS: COMPLETED CC: Diabetes mellitus type 2 with peripheral neuropathy and diabetic kidney disease stage 1, HTN, Hyperlipidemia, Obesity HPI: Some Polys and weakness. All endocrine labs were reviewed with the patient. Barriers/s supports for care: Memory loss is a barrier. Lives with . Three meals a day. Consistehtly eating at home. Reports not taking sweets. Medications for diabetes: INSULIN,GLARGINE-YFGN 100UNIT/ML PEN 3ML INJECT 22 UNITS ACTIVE SUBCUTANEOUSLY ONCE DAILY BG readings: Hgba1c? HEMOGLOBIN A1C TREND 07/20/2023 12:21 BLOOD 11.4 H 05/06/2023 15:55 BLOOD 9.4 H 01/14/2023 13:27 BLOOD 9.5 H 10/13/2022 08:46 BLOOD 8.2 H 07/16/2022 11:09 BLOOD 7.9 H Weight trend: 231 lbs BMI 33.21 Food insecurity no Physical activity: scrap [employer] work Carbohydrate counting: feels comfortable Episodes of hypoglycemia:none Hypoglycemia unawareness: Neuropathy pain: numbness and discomfort Last eye evaluation: 12/[address] Last nephropathy screen MICROALBUMIN July 20, 2023@12:21 URINE mALB/Cr: 105.8 H mg/G 0 - 29.9 July 20, 2023@12:21 URINE MICROALBUMIN,QUANTITATIVE:6.7 FindingsCREATININE-EGFR 07/20/23 12:21 1.20 05/06/23 15:55 1.36 01/14/23 13:27 1.33 Statin therapy:Jul 20 2023 CHOL 131 mg/dL <7 - 199 TRIG 122 mg/dL 0 - 150 HDL 40 mg/dL 40 - 60 LDL 67 mg/dL 0 - 55 CAD: PVD On asa: yes emergency kit/glucose tabs: has glucagon state in dates. knows how to use Active problems - Computerized Problem List is the source for the followin. Vertigo 2. Brain stem stroke 3. Type 2 diabetes mellitus 4. Solitary nodule of lung 5. Carotid artery stenosis 6. Exposure to potentially hazardous substance 7. Food insecurity 8. Chronic kidney disease stage 1 due to type 2 diabetes mellitus 9. Peripheral neuropathy due to type 2 diabetes mellitus 10. Heart murmur 11. Fatty liver 12. Peripheral vascular disease 13. Polyp Colon (SCT 34071216) 14. Depression 15. Gynecomastia 16. Hiatal hernia 17. Anxiety 18. Osteoarthritis of knee 19. Hyperlipidemia (SNOMED CT 54287165) 20. Hypertension (SNOMED CT 01801083) 21. Obesity (SNOMED CT 814896811) 22. Hyperlipidemia (SNOMED CT 01659445) 23. Hepatitis C Active Outpatient Medications (including Supplies): ATORVASTATIN CALCIUM 80MG TAB TAKE ONE TABLET BY MOUTH ACTIVE ONCE DAILY FOR CHOLESTEROL DOSE CHANGE CARBOXYMETHYLCELLULOSE NA 0.5% OPH SOLN INSTILL 1 DROP ACTIVE INTO EACH EYE FOUR TIMES DAILY NEEDED FOR DRY EYE EZETIMIBE 10MG TAB TAKE ONE TABLET BY MOUTH ONCE DAILY TO ACTIVE LOWER CHOLESTEROL GLUCOSE SENSOR DEXCOM G7 USE 1 SENSOR DIRECTED EVERY 10 ACTIVE DAYS INSULIN,GLARGINE-YFGN 100UNIT/ML PEN 3ML INJECT 22 UNITS ACTIVE SUBCUTANEOUSLY ONCE DAILY KETOCONAZOLE 2% CREAM APPLY A SMALL AMOUNT TOPICALLY TWICE ACTIVE DAILY FUNGAL INFECTION LANCET,SOFTCLIX USE 1 LANCET DIRECTED THREE TIMES A DAY ACTIVE TO TEST BLOOD SUGAR MUPIROCIN 2% OINT APPLY THIN LAYER TOPICALLY TWICE DAILY ACTIVE FOR SKIN INFECTION PREGABALIN 200MG ORAL CAP TAKE ONE CAPSULE BY MOUTH TWICE ACTIVE DAILY FOR PAIN Non-VA ALPHA LIPOIC ACID CAP/TAB 200 MG BY MOUTH TWICE ACTIVE DAILY Non-VA ASPIRIN 81MG EC TAB 81MG BY MOUTH ONCE DAILY ACTIVE Non-VA DESVENLAFAXINE(EQV-PRISTIQ)100MG SA TAB 100MG BY ACTIVE MOUTH ONCE DAILY Non-VA DICLOFENAC NA 75MG EC TAB 75MG BY MOUTH TWICE DAILY ACTIVE NEEDED Non-VA DOXEPIN HCL 75MG CAP 75MG BY MOUTH AT BEDTIME ACTIVE Non-VA GLUCOSE CHEW TAB TAB,CHEWABLE FOUR TABLETS BY MOUTH ACTIVE ONE TIME NEEDED Lidocaine oint SHX: lives with ROS: No cough or fever PE: Affect pleasant appropriate Speaking easily in full sentences Feet pulses marked decrease sensory to monofilament marked decrease lesions 2nd toe LLE amp Medical Decision Making: Diabetes mellitus type 2 with peripheral neuropathy and diabetic kidney disease stage 1: has podiatry appt non VA in October Insulin Dose: glargine 28 units daily, increase by one unit daily until fbg < 130 or to a maximum of 50 units daily. Carbohydrate targets 45 gm TID Blood sugar targets 130 premeal and 150-180 after Hemoglobin A1c Targets 7.5 Obesity Memory loss is a barrier to dietary management. Lost 40 lbs in past two years. Hypertension well controlled Hyperlipidemia Not quite at goal, largely due to poor DM control. Team follow up DM educator Aug 23 lab hgba1c flp bmp next visit Insulin orders updated in cprs F/u three mos FTF Medication Reconciliation: Outpatient: Has the patient been taking medications as documented in the EMLR? YES: The patient has been taking medications as documented in the EMLR. Essential Medication List for Review used to complete this medication reconciliation. INCLUDED IN THIS LIST: Alphabetical list of active outpatient prescriptions dispensed from this [place] (local) and dispensed from another [place] or [facility] facility (remote) as well as inpatient orders [...] whether with a VA or non-VA provider. JLV Link Data on this list may not be complete. Please check MySQL. Allergies/ADRs (Tool #5) FACILITY ALLERGY/ADR -------- No Remote Allergy/ADR Data available for this patient [facility] ERYTHROMYCIN [facility] METFORMIN Med Recon NoGlossary (Tool #1) INCLUDED IN THIS LIST: Alphabetical list of active outpatient prescriptions dispensed from this [facility] (local) and dispensed from another [place] or [facility] facility (remote) as well as inpatient orders (local pending and active), local clinic medications, locally documented non-VA medications, and local prescriptions that have or been discontinued in the past 90 days. Non-VA Meds Last Documented On: Oct 17, 2020 NOTE The display of VA prescriptions dispensed from another [place] or [facility] facility (remote) is limited to active outpatient prescription entries matched to National Drug File at the originating site and may not include some items such as investigational drugs, compounds, etc. NOT INCLUDED IN THIS LIST: Medications self-entered by the patient into personal health records (i.e. [facility]) are NOT included in this list. Non-VA medications documented outside this [place], remote inpatient orders (regardless of status) and remote clinic medications are NOT included in this list. The patient and provider must always discuss medications the patient is taking, regardless of where the medication was dispensed or obtained. -------- Non-VA ALPHA LIPOIC ACID CAP/TAB TAKE 200 MG BY MOUTH TWICE DAILY Non-VA ASPIRIN 81MG EC TAB TAKE ONE TABLET BY MOUTH ONCE DAILY OUTPT ATORVASTATIN CALCIUM 80MG TAB (Status = Active) TAKE ONE TABLET BY MOUTH ONCE DAILY FOR CHOLESTEROL DOSE CHANGE Rx# [id number] Last Released: 05/22/23 Qty/Days Supply: Rx Expiration Date: 08/28/23 Refills Remainin OUTPT CARBOXYMETHYLCELLULOSE NA 0.5% OPH SOLN (Status = Active) INSTILL 1 DROP INTO EACH EYE FOUR TIMES DAILY NEEDED FOR DRY EYE Rx# [id number] Last Released: 02/12/23 Qty/Days Supply: Rx Expiration Date: 01/07/24 Refills Remainin Indication: FOR DRY EYE Non-VA DESVENLAFAXINE(EQV-PRISTIQ)100MG SA TAB TAKE ONE TABLET BY MOUTH ONCE DAILY Non-VA medication not recommended by VA provider. Patient wants to buy from Non-VA pharmacy. Medication prescribed by Non-VA provider. ordered by Dr Mcneal, [facility] provider Non-VA DICLOFENAC NA 75MG EC TAB TAKE ONE TABLET BY MOUTH TWICE DAILY NEEDED Non-VA DOXEPIN HCL 75MG CAP TAKE 1 CAPSULE BY MOUTH AT BEDTIME Non-VA medication not recommended by VA provider. Patient wants to buy from Non-VA pharmacy. Medication prescribed by Non-VA provider. Ordered by Dr Mcneal, [facility] provider OUTPT EMPAGLIFLOZIN 25MG TAB (Status = Discontinued) TAKE ONE-HALF TABLET BY MOUTH ONCE DAILY FOR DIABETES Rx# [id number] Last Released: 05/15/23 Qty/Days Supply: Rx Expiration Date: 01/29/24 Refills Remainin OUTPT EZETIMIBE 10MG TAB (Status = Active) TAKE ONE TABLET BY MOUTH ONCE DAILY TO LOWER CHOLESTEROL Rx# [id number] Last Released: 05/15/23 Qty/Days Supply: Rx Expiration Date: 01/29/24 Refills Remainin Indication: FOR HIGH CHOLESTEROL Non-VA GLUCOSE CHEW TAB TAB,CHEWABLE CHEW FOUR TABLETS BY MOUTH ONE TIME NEEDED low blood sugar 4 gm tablet OUTPT INSULIN,GLARGINE-YFGN 100UNIT/ML PEN 3ML (Status = Discontinued) INJECT 22 UNITS SUBCUTANEOUSLY ONCE DAILY Rx# [id number] Last Released: 04/22/23 Qty/Days Supply: Rx Expiration Date: 04/21/24 Refills Remainin Indication: FOR DIABETES OUTPT INSULIN,GLARGINE-YFGN 100UNIT/ML PEN 3ML (Status = Pending) 100UNIT/ML INJECT 28 UNITS SUBCUTANEOUSLY ONCE DAILY increase by one unit a day until AM bg < 130 or to a maximum of 50 units daily Login Date: 08/06/23 Qty/Days Supply: Refills Ordered: 0 OUTPT KETOCONAZOLE 2% CREAM (Status = Active) APPLY A SMALL AMOUNT TOPICALLY TWICE DAILY FUNGAL INFECTION Rx# [id number] Last Released: 06/25/23 Qty/Days Supply: Rx Expiration Date: 06/22/24 Refills Remainin Indication: FUNGAL INFECTION OUTPT MUPIROCIN 2% OINT (Status = Active) APPLY THIN LAYER TOPICALLY TWICE DAILY FOR SKIN INFECTION Rx# [id number] Last Released: 04/08/23 Qty/Days Supply: Rx Expiration Date: 04/02/24 Refills Remainin Indication: FOR SKIN INFECTION OUTPT PREGABALIN 200MG ORAL CAP (Status = Active) TAKE ONE CAPSULE BY MOUTH TWICE DAILY FOR PAIN Rx# [id number] Last Released: 07/27/23 Qty/Days Supply: 60/30 Rx Expiration Date: 08/15/23 Refills Remainin Indication: FOR DIABETIC NEUROPATHY -------- SUPPLIES -------- OUTPT GLUCOSE SENSOR DEXCOM G7 (Status = Active) USE 1 SENSOR DIRECTED EVERY 10 DAYS Rx# [id number] Last Released: 07/15/23 Qty/Days Supply: 3 Rx Expiration Date: 06/26/24 Refills Remainin OUTPT LANCET,SOFTCLIX (Status = Active) USE 1 LANCET DIRECTED THREE TIMES A DAY TO TEST BLOOD SUGAR Rx# [id number] Last Released: 02/03/23 Qty/Days Supply: 300/90 Rx Expiration Date: 01/29/24 Refills Remainin Suicide Screen: C-SSRS Screening [place]-Suicide Severity Rating Scale (C-SSRS Screener) 1. Over the past month, have you wished you were or wished you could go to sleep and not wake up? No 2. Over the past month, have you had any actual thoughts of killing yourself? No 3. Over the past month, have you been thinking about how you might do this? Response not required due to responses to other questions. 4. Over the past month, have you had these thoughts and had some intention of acting on them? Response not required due to responses to other questions. 5. Over the past month, have you started to work out or worked out the details of how to kill yourself? Response not required due to responses to other questions. 6. If yes, at any time in the past month did you intend to carry out this plan? Response not required due to responses to other questions. 7. In your lifetime, have you ever done anything, started to do anything, or prepared to do anything to end your life (for example, collected pills, obtained a gun, gave away valuables, went to the roof but didn't jump)? No 8. If YES, was this within the past 3 months? Response not required due to responses to other questions. Home Telehealth (CCHT) Referral: Patient not a candidate for CCHT Program at this time. Reason: sensor PAVE Foot Check: A complete foot check was completed at this encounter. VISUAL INSPECTION: Includes inspection for skin breaks, deformity, erythema, trauma, pallor on elevation, dependent rubor, nail deformities, extensive callus and pitting edema. Visual exam results: Abnormal PEDAL PULSES: Includes palpation of dorsalis and posterior tibial pulses and signs/symptoms of vascular compromise like pain, pallor, parasthesia or paralysis. Present (even if diminished) SENSORY CHECK: Includes 10 gram Monofilament ([place]) test of sensation. Intact (Greater than or equal to 80% of sites checked) Abnormal (Less than 80% of sites checked): Abnormal (decreased or absent sensation to monofilament): HIGH-RISK: HIGH RISK INFORMATION PROVIDED: 1. Advised patient that extra depth footwear with soft molded inserts and braces may be required. 2. Advised patient not to walk barefoot. 3. Explained the importance of daily foot checks. 4. Stressed the importance of daily foot hygiene, including bathing, complete drying and thorough inspection for changes. The patient verbalized understanding and was offered a detailed handout on diabetic foot care. Patient being seen by an outside auto wheel alignment specialist /joanna/ JAYE GUILLERMO MD STAFF PHYSICIAN Signed: 08/06/2023 11:46 JAYE GUILLERMO [facility]
--- OUTSIDE RECORDS SUMMARY | 2024-04-22 16:14 | XMS_ITS ---
Author Organization [facility] Address [address] [place] [address] Care Team Providers Care Air Traffic Systems Technician Name Role Phone Ramses Motley N.P Primary Care Provider Unav ailable Jorge Leavitt Unavailable [phone] REASON FOR VISIT SUPPLY CHAIN GENERALIST Encounters Encounter Location Date Provider Diagnosis [facility] [address] [place] [address] 07/15/2023 Jorge Leavitt Plan Of Treatment No Information Progress Notes * Prasanth GEORGEDOB:[birth year] (73 yo M)Acc No.[id number]:07/15/2023 Patient:?Prasanth George :1950???Age:73 Y???Sex:Male Address:[address] [place] [address], [address] * true * Date:? Generated for Kaylai isadora/Katerine/eTransmitting on:?04/22/2024 04:14 PM EST
--- OUTSIDE RECORDS SUMMARY | 2024-04-22 16:14 | XMS_ITS ---
Author Organization [facility] Address [address] [place] [address] Care Team Providers Care Manager Dairy Name Role Phone Ramses Motley N.P Primary Care Provider Unav ailable Jorge Leavitt Unavailable [phone] REASON FOR VISIT Cancel Senior Ios Developer Apt Encounters Encounter Location Date Provider Diagnosis [facility] [address] [place] [address] 10/13/2023 Jorge Leavitt Plan Of Treatment No Information Progress Notes * Prasanth GEORGEDOB:[birth year] (73 yo M)Acc No.[id number]:10/13/2023 Patient:?Ramana Georgederick :1950???Age:73 Y???Sex:Male Address:[address] [place] [address], [address] * true * Date:? Generated for Kaylai isadora/Katerine/eTransmitting on:?04/22/2024 04:13 PM EST
--- OUTSIDE RECORDS SUMMARY | 2024-04-22 16:14 | XMS_ITS ---
Author Name [facility] [place] Organization [facility] [place] Address [address] [place] [id number] Care Team Providers Care Inbound Sales Representative Name Role Phone BUNNY MOTLEY Primary Care [...] PART B Dec 07, 2014 PART B [id number] GRAHAMMECCA PATIENT MEDICARE (WNR) MEDICARE (M) PART A Jan 07, 2013 PART A [id number] MECCA STEVENSON PATIENT Selected Encounter This section includes the information on record at [place] for the Encounter. Date/Time Encounter Type Encounter Description Reason Provider Source Mar 21, 2024 01:30 PM OFFICE O/P EST HI 40 MIN PRIMARY CARE/MEDICINE ICD-10-CM E11.8 Type 2 diabetes mellitus with unspecified complications LEODAN MOTLEY Encounter Template Text not used by [place] Assessments - Encounter Diagnoses This section includes the primary and secondary diagnoses documented for the Encounter. Date/Time Primary/Secondary Diagnosis Diagnosis Name Provider Source Mar 21, 2024 01:54 PM PRIMARY Type 2 diabetes mellitus with unspecified complications [facility] Mar 21, 2024 01:54 PM SECONDARY Encounter for [facility] Mar 21, 2024 01:54 PM SECONDARY Essential (primary) hypertension TY HIGGINS [place] [facility] [place] [facility] Mar 21, 2024 01:54 PM SECONDARY Hyperlipidemia, unspecified [facility] Mar 21, 2024 01:54 PM SECONDARY Solitary pulmonary nodule [facility] Mar 21, 2024 01:54 PM SECONDARY Type 2 diabetes mellitus w diabetic chronic kidney disease [facility] Plan of Treatment: Future Appointments (+ 6 months) and Future Tests (+/- 45 days) The Plan of Treatment section includes future care activities for the patient from all [place] treatmentfacilities. This section includes future appointments and future orders which are active, pending or scheduled. Future Appointments This section includes appointments that were scheduled to occur 6 months from the date of the Encounter, up to a maximum of 20 appointments. The data comes from all [place] treatment facilities. Appointment Date/Time Appointment Type Appointme nt Facility Name Mar 25, 2024 01:40 PM [facility] Mar 25, 2024 02:30 PM [facility] Lab Results: +/- 30 days of the encounter This section includes the Chemistry and Hematology Lab Results on record with [place] for the patient. Radiology Reports and Pathology Reports are provided separately, in subsequent sections. Lab Results This section contains the Chemistry/Hematology Results that were resulted 30 days before or 30 daysafter the date of the Encounter. Date/Time Source Result Type Result - Unit Interpretation Reference Range Comment Mar 21, 2024 02:07 PM [facility] HEMOGLOBIN A1C PANEL Specimen Type: BLOOD Comment: Values obtained from A1C measurements can vary. For atypical A1C assays, a reported value of 7.0 could actually be between 6.72 and 7.28 if measured by a reference method. A reported value of 9.0 could actually be between 8.73 and 9.27. Ref: http://www.ngs p.org/CAPdata. asp Ordering Provider: APRIL MOTLEY AM Report Released Date/Time: Mar 03, 2024 11:14 AM Reporting Lab: [address] [address] Performing Lab: [address] [address] HEMOGLOBIN A1C 12.1 H 4.0-5.6 Mar 21, 2024 02:07 PM [facility] LIPID PANEL, NON FASTING Specimen Type: SERUM Comment: Verified by repeat analysis. Critical result acknowledged. PROVIDER RUDDY NOTIFIED, , 1516Hrs, JCL Ordering Provider: APRIL MOTLEY AM Report Released Date/Time: Mar 03, 2024 11:14 AM Reporting Lab: [address] [address] Performing Lab: [address] [address] CHOLESTEROL 140 mg/dL TRIGLYCERIDE 183 mg/dL H 0-150 LDL calculated 64 mg/dL 0-129 CHOL/HDL 3.6 HDL CHOLESTEROL 39 mg/dL L 40-60 Mar 21, 2024 02:07 PM [facility] MICROALBUMIN CREATININE RATIO PANEL Specimen Type: URINE No comment entered. Ordering Provider: APRIL MOTLEY AM Report Released Date/Time: Mar 03, 2024 11:14 AM Reporting Lab: [address] [address] Performing Lab: [address] [address] MICROALBUMIN/C REATININE RATIO 179.8 mg/g H 0-29.9 MICROALBUMIN,Q UANTITATIVE 8.1 mg/dL RR UNAVAIL CREATININE URINE 45.06 mg/dL Mar 21, 2024 02:07 PM [facility] LIVER FUNCTION Specimen Type: SERUM Comment: Verified by repeat analysis. Critical result acknowledged. PROVIDER RUDDY NOTIFIED, , 1516Hrs, JCL Ordering Provider: APRIL MOTLEY AM Report Released Date/Time: Mar 03, 2024 11:14 AM Reporting Lab: [facility] [address] [facility] [address] Performing Lab: [facility] [address] [facility] [address] PROTEIN,TOTAL 7.6 g/dL 6.0-8.3 ALBUMIN 3.9 g/dL 3.5-5.0 ALKALINE PHOSPHATASE 78 U/L 40-150 AST 16 U/L 5-34 ALT 27 U/L BILIRUBIN, TOTAL 0.6 mg/dL 0.2-1.2 Mar 21, 2024 02:07 PM [facility] BASIC METABOLIC PANEL (non-fasting) Specimen Type: SERUM Comment: Verified by repeat analysis. Critical result acknowledged. PROVIDER RUDDY NOTIFIED, , 1516s, L Ordering Provider: APRIL MOTLEY AM Report Released Date/Time: Mar 03, 2024 11:14 AM Reporting Lab: [address] [address] Performing Lab: [address] [address] UREA NITROGEN 19 mg/dL 7-25 GLUCOSE 504 mg/dL HH 65-100 SODIUM 135 mmol/L 135-145 POTASSIUM 4.6 mmol/L 3.5-5.0 CHLORIDE 100 mmol/L 100-110 CO2 24 meq/L 20-30 CREATININE, Serum 1.27 mg/dL 0.50-1.40 eGFR(CKD-EPI 2020) 58 mL/min L >60 Mar 21, 2024 02:07 PM [facility] CBC Specimen Type: BLOOD No comment entered. Ordering Provider: APRIL MOTLEY AM Report Released Date/Time: Mar 03, 2024 11:14 AM Reporting Lab: [address] [address] Performing Lab: [address] [address] WBC 6.19 10*3/uL 4.50-11.00 RBC 4.78 10*6/uL 4.23-5.66 HGB 14.2 g/dL 12.8-17 HCT 41.4 39.2-50.4 MCV 86.6 fL 82-99 MCHC 34.3 g/dL 30.8-35.1 PLT 201 10*3/uL 140-360 RDW-CV 13.2 12.0-16.0 MCH 29.7 pg 26.2-32.6 Vital Signs: All taken on the encounter date This section contains inpatient and outpatient Vital Signs collected on the date of the Encounter. Date/Time Temperature Pulse Blood Pressure Respiratory Rate SP02 Pain Height Weight Body Mass Index Source Mar 21, 2024 01:29 PM 97.5 93 129/66 20 94 3 70 217 31 [place] [facility] Immunizations: All administered on the encounter date This section contains immunizations associated to the Encounter. Immunization Series Date Issued Reaction Comments RSV, BIVALENT, PROTEIN SUBUN IT RSVPREF, DILUENT RECONSTITUTED, 0.5 ML, PF Mar 21, 2024 Social History: Smoking Status (Most current) and Tobacco Use (All prior to encounter date) This section includes the most current, and the historical, smoking and tobacco- related health factors from the [place] facility where the Encounter took place. Current Smoking Status This section includes the most current smoking, or tobacco-related health factor, from the [place] facility where the Encounter took place. Date/Time Current Smoking Status Comment [facility] Sep 22, 2023 09:30 AM VA-TOBACCO FORMER USER [facility] Tobacco Use History This section includes a history of the smoking, or tobacco-related health factors, that were collected on or before the date of the Encounter. The data comes from the [place] facility where the Encounter took place. Date/Time Smoking Status/Tobac co Use Comment Facility Sep 22, 2023 09:30 AM VA-TOBACCO QUIT 15 YRS OR MORE [place] [facility] [place] [facility] Apr 03, 2022 03:00 PM VA-TOBACCO FORMER USER [place] [facility] [place] [facility] Apr 03, 2022 03:00 PM VA-TOBACCO QUIT 15 YRS OR MORE [place] [facility] [place] [facility] Apr 04, 2021 03:30 PM VA-TOBACCO FORMER USER [place] [facility] [place] [facility] Apr 04, 2021 03:30 PM VA-TOBACCO QUIT 15 YRS OR MORE [place] [facility] [place] [facility] Dec 09, 2019 01:00 PM VA-TOBACCO FORMER USER [place] [facility] [place] [facility] Dec 09, 2019 01:00 PM VA-TOBACCO QUIT 15 YRS OR MORE [place] [facility] [place] [facility] Dec 01, 2018 01:48 PM VA-TOBACCO FORMER USER [place] [facility] [place] [facility] Dec 01, 2018 01:48 PM VA-TOBACCO QUIT 15 YRS OR MORE [place] [facility] [place] [facility] Jan 21, 2018 03:37 PM VA-TOBACCO FORMER USER [place] [facility] [place] [facility] Jan 21, 2018 03:37 PM VA-TOBACCO QUIT 15 YRS OR MORE [facility] [place] [facility] Jan 19, 2017 01:56 PM QUIT TOBACCO USE > 7 YEARS AGO quit 40 myears ago [place] [facility] [place] [facility] Nov 30, 2015 01:04 PM QUIT TOBACCO USE > 7 YEARS AGO quit in 1979 [place] [facility] [place] [facility] July 09, 2001 08:11 AM QUIT TOBACCO USE > 7 YEARS AGO quit 1979 [facility] Encounter Notes: All associated encounter notes This section contains the clinical notes associated to the Encounter. Date/Time Encounter Note(s) Provider Source Mar 21, 2024 01:49 PM PRIMARY CARE NURSE PRACTITIONER OUTPATIENT NOTE: LOCAL TITLE: NURSE PRACTITIONER OUTPATIENT NOTE STANDARD TITLE: PRIMARY CARE NURSE PRACTITIONER OUTPATIENT NOTE DATE OF NOTE: MAR 21, 2024@13:49 ENTRY DATE: MAR 21, 2024@13:49:48 AUTHOR: BUNNY MOTLEY COSIGNER: URGENCY: STATUS: COMPLETED NURSE PRACTITIONER OUTPATIENT NOTE Has ADDENDA Chief complaint: Patient is a 74 year old . HPI: Pleasant male here to follow up, he reports feeling well. Allergies: ERYTHROMYCIN, METFORMIN, EMPAGLIFLOZIN The following VA and Non-VA meds were reconciled with patient. The patient was educated on the use of the medications including indication and side effects. Active and Recently Outpatient Medications (excluding Supplies): Active Outpatient Medications Status 1) ATORVASTATIN CALCIUM 80MG TAB TAKE ONE TABLET BY MOUTH ONCE ACTIVE DAILY FOR CHOLESTEROL DOSE CHANGE 2) INSULIN,ASPART(EQV-NOVLG)1 00UN/ML FLXPEN INJECT 22 UNITS ACTIVE SUBCUTANEOUSLY THREE TIMES A DAY BEFORE MEALS Indication: FOR DIABETES 3) KETOCONAZOLE 2% CREAM APPLY A SMALL AMOUNT TOPICALLY TWICE ACTIVE DAILY Indication: FUNGAL INFECTION 4) MUPIROCIN 2% OINT APPLY THIN LAYER TOPICALLY TWICE DAILY ACTIVE Indication: FOR SKIN INFECTION 5) PREGABALIN 200MG ORAL CAP TAKE ONE CAPSULE BY MOUTH TWICE ACTIVE DAILY FOR PAIN Indication: FOR DIABETIC NEUROPATHY Active Non-VA Medications Status 1) Non-VA ALPHA LIPOIC ACID CAP/TAB 200 MG BY MOUTH TWICE DAILY ACTIVE 2) Non-VA ASPIRIN 81MG EC TAB 81MG BY MOUTH ONCE DAILY ACTIVE 3) Non-VA DESVENLAFAXINE(EQV-PRISTIQ )100MG SA TAB 100MG BY ACTIVE MOUTH ONCE DAILY 4) Non-VA DICLOFENAC NA 75MG EC TAB 75MG BY MOUTH TWICE DAILY ACTIVE NEEDED 5) Non-VA DOXEPIN HCL 75MG CAP 75MG BY MOUTH AT BEDTIME ACTIVE 6) Non-VA GLUCOSE CHEW TAB TAB,CHEWABLE FOUR TABLETS BY MOUTH ACTIVE ONE TIME NEEDED 11 Total Medications Review of Systems: Constitutional: (-)for Fevers, chills, weakness, nights sweats On examination: 97.5 F [36.4 C] (03/21/2024 13:29)129/66 (03/21/2024 13:29)93 (03/21/2024 13:29)20 (03/21/2024 13:29)3 (03/21/2024 13:29)BMI: 31.2217 lb [98.43 kg] (03/21/2024 13:29) [place] is alert and oriented X3 Cardiovasc: 2plus carotids without bruits, no JVD Heart Reguler rate and rhythm NL S1S2 no S3, + murmur Respiration: Normal respiratory effort, lungs clear ABD: Benign normal active bowel sounds no HSM no rebound or referred pain EXT: no clubbing, edema, or cyanosis All diagnostics from past month were reviewed with patient. Assessment/plan: Active problems - Computerized Problem List is the source for the followin. Type 2 diabetes mellitus - labs today, he missed dm follow up, encouraged to reschedule. 2. Solitary nodule of lung - concerning findings on ct, he was referred to pulm, they has repeated the ct with ? possible bronchoscopy, he has follow up scheduled with them. 3. Chronic kidney disease stage 1 due to type 2 diabetes mellitus - labs today. 4. Hyperlipidemia - labs today 5. Hypertension - well controlled. 6. hematuria - he is following with urology, has cystoscope scheduled. Health Care Maintenance: RSV given in Today I spent 40 minutes on some or all of the following: chart review, history, physical examination, treatment planning, education and counseling of the patient/family/caretaker, placing orders, communicating with other health care providers, completing health and wellness screenings (see below) and documentation in the electronic health record. Follow up visit in 6 mos. Medication Reconciliation: Outpatient: Has the patient been taking medications as documented in the EMLR? YES: The patient has been taking medications as documented in the EMLR. Essential Medication List for Review used to complete this medication reconciliation. INCLUDED IN THIS LIST: Alphabetical list of active outpatient prescriptions dispensed from this [facility] (local) and dispensed from another VA or [facility]D facility (remote) as well as [...] whether with a VA or non-VA provider. /es/ Bunny Motley DNP, LENNIE, CNL Primary Care Nurse Practitioner Signed: 03/21/2024 13:54 03/21/2024 ADDENDUM STATUS: COMPLETED i spoke with [place] and informed him of glucose level. He says he is feeling well, he will take 3rd dose of aspart and check sugar in 30 mins. /joanna/ LENNIE Lundy DNP, LOUANN Primary Care Nurse Practitioner Signed: 03/21/2024 15:23 BUNNY MOTLEY [place] [facility] [place] [facility] Mar 21, 2024 01:33 PM PREVENTIVE MEDICINE NURSING NOTE: LOCAL TITLE: CLINICAL REMINDERS/NURSING STANDARD TITLE: PREVENTIVE MEDICINE NURSING NOTE DATE OF NOTE: MAR 21, 2024@13:33 ENTRY DATE: MAR 21, 2024@13:33:42 AUTHOR: MICHAEL KHAN COSIGNER: URGENCY: STATUS: COMPLETED CLINICAL REMINDERS/NURSING Has ADDENDA Falls & Incontinence Screen: Falls Screen: During the past 12 months, did the patient report any falls? 4. No falls within the past year. Incontinence Screen: During the past 12 months, has the patient has any characteristics of incontinence (ability, voiding, leakage, etc.)? No incontinence. /joanna/ [facility] HARNESS TIER,PRIMARY CARE Signed: 03/21/2024 13:34 03/21/2024 ADDENDUM STATUS: COMPLETED Influenza Immunization: The patient has received the seasonal influenza vaccine for the current season at another location. Documented: INFLUENZA, UNSPECIFIED FORMULATION Historical Date Administered: Feb 16, 2024 Outside Location: Outside Healthcare Provider Information Source: FROM PATIENT'S RECALL Comment: oer statement from vet COVID-19 Immunization: Vaccine given previously - no written/electronic documentation available Comment: per statement from vet The patient was instructed to bring a copy of their COVID-19 vaccine information to their next appointment so that this can be accurately recorded in their [place] medical record. /adelfo [facility] HARNESS TIER,PRIMARY CARE Signed: 03/21/2024 13:36 03/21/2024 ADDENDUM STATUS: COMPLETED RSV Immunization: Respiratory Syncytial Virus (RSV) Vaccine: RSV vaccine administered today. 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 /joanna/ Karin Higgins MSN RN CNL Primary Care RN Signed: 03/21/2024 13:56 [facility]
--- OUTSIDE RECORDS SUMMARY | 2024-04-22 16:14 | XMS_ITS ---
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 Date/Time Encounter Type Encounter Description Reason Provider Source Nov 03, 2023 02:00 PM DIAB MANAGE TRN PER IND [facility]ES [facility] ICD-10-CM E11.8 Type 2 diabetes mellitus with unspecified complications MAXINE PONCE Olivia Encounter Template Text not used by [place] Assessments - Encounter Diagnoses This section includes the primary and secondary diagnoses documented for the Encounter. Date/Time Primary/Secondary Diagnosis Diagnosis Name Provider Source Nov 03, 2023 05:26 PM PRIMARY Type 2 diabetes mellitus with unspecified complications MAXINE PONCE [facility] [place] [facility] Plan of Treatment: Future Appointments (+ 6 months) and Future Tests (+/- 45 days) The Plan of Treatment section includes future care activities for the patient from all [place] treatmentfapending sale to [facility]. This section includes future appointments and future orders which are active, pending or scheduled. Future Appointments This section includes appointments that were scheduled to occur 6 months from the date of the Encounter, up to a maximum of 20 appointments. The data comes from all [place] treatment facilities. Appointment Date/Time Appointment Type Appointme nt Facility Name Nov 05, 2023 03:00 PM AMBULATORY - [place]ICINE [place] [facility] [place] [facility] Nov 30, 2023 11:30 AM AMBULATORY - NONE [place] [facility] [place] [facility] Jan 11, 2024 03:30 PM AM[place]ULATORY [place]IC[place] [facility] [place] [facility] 2024 03:00 PM AM[place]UL[place]ORY [place] [facility] [place] [facility] Jan 19, 2024 02:00 PM AM[place]ULATORY [place] [facility] [place] [facility] Jan 19, 2024 03:00 PM [place] [facility] [place] [facility] Jan 26, 2024 02:00 PM AM[place]ULATORY [place]ICINE [place] [facility] [place] [facility] Mar 21, 2024 01:30 PM AM[place]ULATORY [place]INE [place] [facility] [place] [facility] Mar 25, 2024 01:40 PM AMBULATORY [place]ICINE [place] [facility] [place] [facility] Mar 25, 2024 02:30 PM AM[place]ULATORY [place]ICINE [place] [facility] [place] [facility] Lab Results: +/- 30 days of the encounter This section includes the Chemistry and Hematology Lab Results on record with [place] for the patient. Radiology Reports and Pathology Reports are provided separately, in subsequent sections. Lab Results This section contains the Chemistry/Hematology Results that were resulted 30 days before or 30 daysafter the date of the Encounter. Date/Time Source Result Type Result - Unit Interpretation Reference Range Comment Oct 30, 2023 10:08 AM [place] [facility] [place] [facility] LIPID PANEL FASTING Specimen Type: SERUM No comment entered. Ordering Provider: JAYE GUILLERMO Report Released Date/Time: August 06, 2023 11:47 AM Reporting Lab: [facility] [address] [address] Performing Lab: [facility] [address] [facility] [address] CHOLESTEROL 138 mg/dL TRIGLYCERIDE 161 mg/dL H 0-150 LDL calculated 68 mg/dL 0-129 CHOL/HDL 3.6 HDL CHOLESTEROL 38 mg/dL L 40-60 Oct 30, 2023 10:08 AM [facility] HEMOGLOBIN A1C PANEL Specimen Type: BLOOD Comment: Values obtained from A1C measurements can vary. For atypical A1C assays, a reported value of 7.0 could actually be between 6.72 and 7.28 if measured by a reference method. A reported value of 9.0 could actually be between 8.73 and 9.27. Ref: http://www.ngs p.org/CAPdata. asp Ordering Provider: JAYE GUILLERMO Report Released Date/Time: August 06, 2023 11:47 AM Reporting Lab: [address] [address] Performing Lab: [address] [address] HEMOGLOBIN A1C 10.7 H 4.0-5.6 Oct 30, 2023 10:08 AM [facility] BASIC METABOLIC PANEL (non-fasting) Specimen Type: SERUM No comment entered. Ordering Provider: JAYE GUILLERMO Report Released Date/Time: August 06, 2023 11:47 AM Reporting Lab: [address] [address] Performing Lab: [address] [address] UREA NITROGEN 21 mg/dL 7-25 GLUCOSE 236 mg/dL H 65-100 SODIUM 141 mmol/L 135-145 POTASSIUM 4.6 mmol/L 3.5-5.0 CHLORIDE 102 mmol/L 100-110 CO2 25 meq/L 20-30 CREATININE, Serum 1.43 mg/dL H 0.50-1.40 eGFR(CKD-EPI 2020) 51 mL/min L >60 Social History: Smoking Status (Most current) and Tobacco Use (All prior to encounter date) This section includes the most current, and the historical, smoking and tobacco- related health factors from the [place] facility where the Encounter took place. Current Smoking Status This section includes the most current smoking, or tobacco-related health factor, from the [place] facility where the Encounter took place. Date/Time Current Smoking Status Comment [facility] Sep 22, 2023 09:30 AM VA-TOBACCO FORMER USER [place] [facility] [place] [facility] Tobacco Use History This section includes a history of the smoking, or tobacco-related health factors, that were collected on or before the date of the Encounter. The data comes from the [place] facility where the Encounter took place. Date/Time Smoking Status/Tobac co Use Comment Facility Sep 22, 2023 09:30 AM VA-TOBACCO QUIT 15 YRS OR MORE [facility] [place] [facility] Apr 03, 2022 03:00 PM VA-TOBACCO FORMER USER [facility] [place] [facility] Apr 03, 2022 03:00 PM VA-TOBACCO QUIT 15 YRS OR MORE [facility] [place] [facility] Apr 04, 2021 03:30 PM VA-TOBACCO FORMER USER [facility] [place] [facility] Apr 04, 2021 03:30 PM VA-TOBACCO QUIT 15 YRS OR MORE [facility] [place] [facility] Dec 09, 2019 01:00 PM VA-TOBACCO FORMER USER [facility] [place] [facility] Dec 09, 2019 01:00 PM VA-TOBACCO QUIT 15 YRS OR MORE [facility] [place] [facility] Dec 01, 2018 01:48 PM VA-TOBACCO FORMER USER [facility] [place] [facility] Dec 01, 2018 01:48 PM VA-TOBACCO QUIT 15 YRS OR MORE [facility] [place] [facility] Jan 21, 2018 03:37 PM VA-TOBACCO FORMER USER [facility] [place] [facility] Jan 21, 2018 03:37 PM VA-TOBACCO QUIT 15 YRS OR MORE [facility] [place] [facility] Jan 19, 2017 01:56 PM QUIT TOBACCO USE > 7 YEARS AGO quit 40 myears ago [facility] [place] [facility] Nov 30, 2015 01:04 PM QUIT TOBACCO USE > 7 YEARS AGO quit in 1979 [facility] [place] [facility] July 09, 2001 08:11 AM QUIT TOBACCO USE > 7 YEARS AGO quit 1979 [facility] Radiology Reports: +/- 30 days of [...] the Encounter. The data comes from all [place] treatment facilities. 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 1346 images were received by the [place] National Telerad[facility] Program (NTP) for interpretation. RADIATION DOSE (mGy*cm): 119 IV CONTRAST: Not administered. FINDINGS: Lower Neck: Unremarkable. Airways: There is a 1.1 cm filling defect in the mid trachea (3/82). Lungs: Scattered pulmonary nodules bilaterally measuring up to 7 mm (for example series 8 images 62, 68, 73, 84, 99, 127, 151, 154, 165, 185, 214). Subsegmental atelectasis in lung bases. Pleura: No pleural effusion or pneumothorax. Mediastinum: Normal heart size. Moderate coronary artery calcifications, coronary stents are present. No pericardial effusion. Great Vessels: Moderate atherosclerotic calcification. Lymph Nodes: Unremarkable. Upper Abdomen: Unremarkable. Chest Wall: Mild bilateral gynecomastia. Bones: Mild degenerative changes of the spine. Impression: 1. Multiple scattered pulmonary nodules measuring up to 7 mm, which may relate to infectious versus inflammatory process. Recommend short-term follow-up chest CT in 3-6 months. 2. There is a 1.1 cm filling defect in the mid trachea, which may relate to retained debris/secretions. Recommend attention on follow-up. READING PHYSICIAN: Sukhjinder Gutierrez M.D. -[id number] 11/04/2023 13:07 PDT [facility] National Teleradiology Program [phone] (For Medical Practitioner Use Only) Attention Patients / Veterans: If you have questions or concerns about these test results, please contact your ordering provider or primary care team. Primary Diagnostic Code: NO ALERT REQUIRED Primary Interpreting Staff: RADIOLOGY,OUTSIDE SERVICE, Staff Physician / RADIOLOGY,OUTSIDE SERVICE [facility] Encounter Notes: All associated encounter notes This section contains the clinical notes associated to the Encounter. Date/Time Encounter Note(s) Provider Source Nov 03, 2023 05:25 PM DIABETOLOGY NOTE: LOCAL TITLE: INSULIN PUMP/CGM DOWNLOAD (T) STANDARD TITLE: DIABETOLOGY NOTE DATE OF NOTE: NOV 03, 2023@17:25 ENTRY DATE: NOV 03, 2023@17:25:46 AUTHOR: PREETHI PONCE EXP COSIGNER: URGENCY: STATUS: COMPLETED Please select: Personal Continuous Glucose Monitor Date of Documentation:Oct Please see attached scanned document in [facility]. DX: Type 2 diabetes Sensor: Dexcom G7 /es/ PREETHI PONCE RN,BSN, [facility] DIABETES SAFETY SITTER, RN Signed: 11/03/2023 17:26 [facility] Nov 03, 2023 02:07 PM DIABETOLOGY EDUCATION NOTE: LOCAL TITLE: DIABETES EDU FOLLOW UP STANDARD TITLE: DIABETOLOGY EDUCATION NOTE DATE OF NOTE: NOV 03, 2023@14:07 ENTRY DATE: NOV 03, 2023@14:07:39 AUTHOR: PREETHI PONCE EXP COSIGNER: URGENCY: STATUS: COMPLETED FOLLOW UP DIABETES EDUCATION VISIT Demographics: Patient Name: PRASANTH STEVENSON Age: 73 Sex: MALE Race: WHITE MARITAL STATUS - Introduction: identified with 2 identifiers: [X] Full Name [X] Date of [ ] Address [ ] VA ID Card PATIENT PHONE - PHONE NUMBER [CELLULAR] - Is patient phone number correct, if not, enter below: 's phone number: PRASANTH STEVENSON [address], [place], [address] MOST RECENT LABS: HEMOGLOBIN A1C TREND Collection DT Spec HGBA1c 10/30/2023 10:08 BLOOD 10.7 H 07/20/2023 12:21 BLOOD 11.4 H 05/06/2023 15:55 BLOOD 9.4 H 01/14/2023 13:27 BLOOD 9.5 H 10/13/2022 08:46 BLOOD 8.2 H CHEM 7 TREND LAB CUMULATIVE SELECTED Collection DT Spec GLUCOSE BUN CREATIN Sodium K+/Pot CL CO2 10/30/2023 10:08 SERUM 236 H 21 1.43 H 141 4.6 102 25 07/20/2023 12:21 SERUM 339 H 21 1.20 137 4.7 102 25 05/06/2023 15:55 SERUM 337 H 22 1.36 140 4.6 103 25 01/14/2023 13:27 SERUM 303 H 24 1.33 141 4.5 103 27 10/13/2022 08:46 SERUM 330 H 18 1.24 141 4.2 104 27 LAB CUMULATIVE SELECTED 2 No selection items chosen for this component. CHEM 7 Results Collection DT Spec Sodium K+/Pot CL CO2 GLUCOSE BUN 10/30/2023 10:08 SERUM 141 4.6 102 25 236 H 21 07/20/2023 12:21 SERUM 137 4.7 102 25 339 H 21 05/06/2023 15:55 SERUM 140 4.6 103 25 337 H 22 01/14/2023 13:27 SERUM 141 4.5 103 27 303 H 24 10/13/2022 08:46 SERUM 141 4.2 104 27 330 H 18 07/16/2022 11:09 SERUM 141 4.5 103 27 125 H 18 03/21/2022 15:33 SERUM 145 4.8 108 28 146 H 23 12/10/2021 14:08 SERUM 143 4.3 107 26 101 H 20 09/06/2021 13:52 SERUM 143 4.2 106 28 68 15 06/18/2021 15:53 SERUM 141 4.5 107 25 156 H 20 04/04/2021 09:51 SERUM 143 4.7 106 27 207 H 23 09/24/2020 15:40 SERUM 143 4.8 106 28 204 H 14 07/02/2020 07:57 SERUM 142 4.6 105 28 129 H 26 H 04/05/2020 11:50 SERUM 139 4.6 102 28 287 H 19 09/28/2019 11:13 SERUM 141 4.6 105 25 184 H 22 03/23/2019 10:33 SERUM 141 4.3 103 32 H 172 H 15 09/13/2018 14:37 SERUM 143 4.2 107 26 187 H 18 01/20/2018 10:20 SERUM 140 4.3 104 28 207 H 18 06/08/2017 15:06 SERUM 138 4.6 103 26 158 H 24 04/06/2017 14:52 SERUM 141 4.1 105 28 122 H 20 02/20/2017 14:13 SERUM 137 4.1 101 30 325 H 18 08/11/2016 14:34 SERUM 139 3.9 102 28 126 H 12 05/08/2016 15:01 SERUM 138 4.5 100 31 H 291 H 16 12/31/2015 12:21 SERUM 140 4.9 100 28 297 H 11 07/09/2001 08:55 SERUM 138 4.8 103 28 116 H 22 07/05/2001 07:51 SERUM 139 4.6 103 26 141 H 20 LIPID PANEL TREND Collection DT Spec CHOL HDL CHO/HDL LDL-c TRIG 10/30/2023 10:08 SERUM 138 38 L 3.6 68 161 H 07/20/2023 12:21 SERUM 131 40 3.3 67 122 01/14/2023 13:27 SERUM 135 38 L 3.6 63 169 H 07/16/2022 11:09 SERUM 128 38 L 3.4 67 113 03/21/2022 15:33 SERUM 126 41 3.1 67 88 CREATININE-EGFR 10/30/23 10:08 1.43 H 07/20/23 12:21 1.20 05/06/23 15:55 1.36 EGFR - NONE FOUND WEIGHT: 214 lb [97.07 kg] (09/22/2023 09:24) HEIGHT: 70 in [177.8 cm] (09/22/2023 09:24) BMI: 30.8 REASON FOR EDUCATION VISIT TODAY: Diagnosed many years ago with Type 2 diabetes, not sure when he was diagnosed. Last seen in June for diabetes education. Scheduled to see Dr. Guillermo this week. Here to review how to insert the Dexcom G7 sensor. Reports he had a sensor placed and it fell off immediately (within 1-2 days). He has not tried placing another in his arm. Today, we reviewed how to insert another one into his right arm. His accompanies him today. is Ana. MOST RECENT LABS: HEMOGLOBIN A1C TREND Collection DT Spec HGBA1c 05/06/2023 15:55 BLOOD 9.4 H 01/14/2023 13:27 BLOOD 9.5 H 10/13/2022 08:46 BLOOD 8.2 H 07/16/2022 11:09 BLOOD 7.9 H 03/21/2022 15:33 BLOOD 7.1 H CHEM 7 TREND LAB CUMULATIVE SELECTED Collection DT Spec GLUCOSE BUN CREATIN Sodium K+/Pot CL CO2 05/06/2023 15:55 SERUM 337 H 22 1.36 140 4.6 103 25 01/14/2023 13:27 SERUM 303 H 24 1.33 141 4.5 103 27 10/13/2022 08:46 SERUM 330 H 18 1.24 141 4.2 104 27 07/16/2022 11:09 SERUM 125 H 18 1.00 141 4.5 103 27 03/21/2022 15:33 SERUM 146 H 23 1.15 145 4.8 108 28 LAB CUMULATIVE SELECTED 2 No selection items chosen for this component. CHEM 7 Results Collection DT Spec Sodium K+/Pot CL CO2 GLUCOSE BUN 05/06/2023 15:55 SERUM 140 4.6 103 25 337 H 22 01/14/2023 13:27 SERUM 141 4.5 103 27 303 H 24 10/13/2022 08:46 SERUM 141 4.2 104 27 330 H 18 07/16/2022 11:09 SERUM 141 4.5 103 27 125 H 18 03/21/2022 15:33 SERUM 145 4.8 108 28 146 H 23 12/10/2021 14:08 SERUM 143 4.3 107 26 101 H 20 09/06/2021 13:52 SERUM 143 4.2 106 28 68 15 06/18/2021 15:53 SERUM 141 4.5 107 25 156 H 20 04/04/2021 09:51 SERUM 143 4.7 106 27 207 H 23 09/24/2020 15:40 SERUM 143 4.8 106 28 204 H 14 07/02/2020 07:57 SERUM 142 4.6 105 28 129 H 26 H 04/05/2020 11:50 SERUM 139 4.6 102 28 287 H 19 09/28/2019 11:13 SERUM 141 4.6 105 25 184 H 22 03/23/2019 10:33 SERUM 141 4.3 103 32 H 172 H 15 09/13/2018 14:37 SERUM 143 4.2 107 26 187 H 18 01/20/2018 10:20 SERUM 140 4.3 104 28 207 H 18 06/08/2017 15:06 SERUM 138 4.6 103 26 158 H 24 04/06/2017 14:52 SERUM 141 4.1 105 28 122 H 20 02/20/2017 14:13 SERUM 137 4.1 101 30 325 H 18 08/11/2016 14:34 SERUM 139 3.9 102 28 126 H 12 05/08/2016 15:01 SERUM 138 4.5 100 31 H 291 H 16 12/31/2015 12:21 SERUM 140 4.9 100 28 297 H 11 07/09/2001 08:55 SERUM 138 4.8 103 28 116 H 22 07/05/2001 07:51 SERUM 139 4.6 103 26 141 H 20 LIPID PANEL TREND Collection DT Spec CHOL HDL CHO/HDL LDL-c TRIG 01/14/2023 13:27 SERUM 135 38 L 3.6 63 169 H 07/16/2022 11:09 SERUM 128 38 L 3.4 67 113 03/21/2022 15:33 SERUM 126 41 3.1 67 88 09/06/2021 13:52 SERUM 153 34 L 4.5 91 142 04/04/2021 09:51 SERUM 171 37 L 4.6 101 163 H CREATININE-EGFR 05/06/23 15:55 1.36 01/14/23 13:27 1.33 10/13/22 08:46 1.24 EGFR - NONE FOUND WEIGHT: 231 lb [104.78 kg] (04/02/2023 15:37) HEIGHT: 70 in [177.8 cm] (01/28/2023 15:28) BMI: 33.2 Source of referral/primary care provider: (X) Outpatient Name of Referring Provider: Dr. Guillermo Living arrangements: X Spouse- , Ana Possible barriers to learning: X None- admits that he needs things written down, otherwise, he will forget. 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 No wound was seen on the right foot. CARDIOVASCULAR/CEREBROVASCU LAR: Comments: OTHER MEDICAL CONCERNS: Diabetes related illnesses or hospitalizations in the past year: Comments: Diabetes Distress Support: On a scale of 1-6 where 1 is no problem and 6 is a very serious problem, rate the following Feeling overwhelmed by the demands of living with diabetes. Feeling that I am failing my diabetes routine. DIABETES MANAGEMENT Diet In the last 12 months, were there times when the food for you just did not last and there was no money to buy more? 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 Frequency: Duration: Level: Limitations: DIABETES MEDICATIONS: Glargine- 17 units once a day, at bedtime. Aspart- 22 units before meals, 3x/day. Reviewed Veterans technique with injecting insulin via insulin pens. He does not know his insulin, except for by color. He knows that the long acting insulin is the blue pen and the orange pen is the short acting insulin. STORAGE OF INSULIN/OTHER INJECTABLES: INJECTIONS SITES: SITES VIEWED: ANY EVIDENCE OF LIPOHYPERTROPHY History of hypoglycemia: No low glucose in the last month Symptoms: weak, can't navigate very well. Frequency: Typical treatment: orange juice or soda Medic ID: does not have one, interested Driving instructions: Has Glucagon kit: Monitoring: Brought meter for us to download: Name: Prasanth StevensonAngeli : 1950 ID: [id number] Information from [facility] on 11/03/2023 Patient Name: Prasanth StevensonAngeli Date Range: 08/06/2023 - 11/03/2023 bG values are displayed in mg/dL # of tests 66 Average 433 SD 97.3 Highest 585 Lowest 197 Avg tests/day 0.7 # HI 10 # LO 0 <80 0.0% 80-130 0.0% >130 100.0% Hypos(<70) 0 Date Range: 08/06/2023 - 11/03/2023 bG values are displayed in mg/dL 00:00- 05:30- 08:00- 11:00- 12:30- 17:00- 18:30- 21:30- 05:30 08:00 11:00 12:30 17:00 18:30 21:30 00:00 Ina 08/06/2023 382 08/10/2023 511 08/11/2023 453 08/12/2023 318 Ina 08/13/2023 234 08/14/2023 397 08/15/2023 442 08/16/2023 521 08/17/2023 396 08/18/2023 426 08/19/2023 277 Ina 08/20/2023 537 08/21/2023 513 08/24/2023 429 414 08/25/2023 478 08/28/2023 386 09/01/2023 452 09/06/2023 396 09/07/2023 341 09/09/2023 HI Ina 09/10/2023 424 09/11/2023 419 09/13/2023 483 09/14/2023 373 09/15/2023 HI Ina 09/17/2023 474 09/18/2023 HI 09/19/2023 543 09/21/2023 HI 493 HI 09/22/2023 HI 489 321 Ina 09/24/2023 343 476 09/28/2023 472 512 09/30/2023 373 211 Ina 10/01/2023 413 10/02/2023 489 10/03/2023 HI 10/05/2023 533 10/07/2023 197 Ina 10/08/2023 520 10/09/2023 368 585 10/11/2023 509 10/14/2023 515 300 Ina 10/15/2023 365 10/18/2023 HI 555 HI 490 10/21/2023 406 Ina 10/22/2023 318 10/24/2023 570 10/26/2023 572 Ina 10/29/2023 537 10/30/2023 494 232 11/02/2023 568 11/03/2023 HI Date Range: 08/06/2023 - 11/03/2023 bG values are displayed in mg/dL 00:00- 05:30- 08:00- 11:00- 12:30- 17:00- 18:30- 21:30- 05:30 08:00 11:00 12:30 17:00 18:30 21:30 00:00 # of tests 1 6 6 12 21 6 10 4 Average 429 423 410 409 490 403 384 464 SD 0 60 64.9 102.4 52 103 147.7 110.2 Hi/Lo 0 1 1 2 5 0 1 0 Date Range: 08/06/2023 - 11/03/2023 bG values are displayed in mg/dL 08/06/2023 7:47 AM 382 08/10/2023 10:50 PM 511 08/11/2023 7:57 AM 453 08/12/2023 8:43 AM 318 08/13/2023 8:05 PM 234 08/14/2023 9:32 AM 397 08/15/2023 7:32 AM 442 08/16/2023 2:43 PM 521 08/17/2023 9:22 AM 396 08/18/2023 12:43 PM 426 08/19/2023 5:58 PM 277 08/20/2023 6:34 PM 537 08/21/2023 12:57 PM 513 08/24/2023 3:01 AM 429 12:39 PM 414 08/25/2023 4:40 PM 478 08/28/2023 11:59 AM 386 09/01/2023 10:18 AM 452 09/06/2023 11:46 AM 396 09/07/2023 8:23 PM 341 09/09/2023 1:08 PM HI 09/10/2023 11:15 AM 424 09/11/2023 12:33 PM 419 09/13/2023 5:40 PM 483 09/14/2023 5:53 PM 373 09/15/2023 3:05 PM HI 09/17/2023 2:30 PM 474 09/18/2023 1:44 PM HI 09/19/2023 1:54 PM 543 09/21/2023 12:24 PM HI 12:26 PM HI 1:10 PM 493 09/22/2023 7:32 AM HI 8:20 AM 489 5:30 PM 321 09/24/2023 7:59 AM 343 12:11 PM 476 09/28/2023 12:39 PM 472 7:12 PM 512 09/30/2023 11:37 AM 373 9:14 PM 211 10/01/2023 1:36 PM 413 10/02/2023 1:34 PM 489 10/03/2023 3:50 PM HI 10/05/2023 11:43 AM 533 10/07/2023 7:46 PM 197 10/08/2023 3:21 PM 520 10/09/2023 11:07 AM 368 11:08 AM 585 10/11/2023 11:15 PM 509 10/14/2023 12:35 PM 515 11:29 PM 300 10/15/2023 7:27 PM 365 10/18/2023 3:37 PM HI 5:27 PM 555 9:13 PM HI 9:25 PM 490 10/21/2023 5:30 PM 406 10/22/2023 11:13 AM 318 10/24/2023 4:02 PM 570 10/26/2023 2:18 PM 572 10/29/2023 10:51 PM 537 10/30/2023 7:51 AM 494 12:29 PM 232 11/02/2023 9:13 PM 568 11/03/2023 10:37 AM HI End of information from [facility] SMBG/ What are your BG targets? Fastin-130 mg/dl; 2 hours after meals: 140-180 mg/dl Sensor Glucose/What are your SG TIR targets? 70% What is your A1c target? 7.0% Learning limitations/special education needs: None Cultural influences: None Health beliefs/attitudes/feelings about diabetes: None Will significant other participate in program? No Prior diabetes education: ASSESSMENT: Kindly referred by Dr. Guillermo. Joy was last seen by Diabetes Education in June. At that time, we started him on the Dexcom G7 sensor. He reports it alerted too much and drove him crazy and it fell off after 2 days, therefore, he did not bother placing a new sensor on his arm. He did not follow up within a month as recommended and his has called in the last 2 weeks concerned that he has been having very high blood sugars and his frequently of urination has increased and she has even found him sitting in his urine. Based on his meter download, he has blood sugars in the 400-500s fairly regularly and he has even had glucose that read Hi (above 600 mg/dl). Joy was encouraged to re-start the sensor today. Reviewed it with both his and him and they both did great. Joy did appear to have some trouble remembering to using the open table mountain as the enter button for the sensor reader. He may need assistance from his , since she understand the button on the sensor quicker than he did. Joy was encouraged to carry the sensor shingle packer on him at all times. We turned off most alerts so that it does not drive him crazy and make him want to stop using it. Joy was given instructions for adjusting his insulin as listed below in the instruction section. He admits that he does best when everything is written down, therefore, we printed it in large print for him to see well. We reviewed all the reasons why his blood sugars could go bad and it does not seem that he has had trouble with them. Examples include: his technique with injecting insulin was perfect; he does not report missing any doses of his insulin; he is storing his insulin at room temperature; we reviewed when insulin expires and he tends to use his insulin faster than the 28 days; he is not leaving the insulin in a hot or frozen car. We could not figure out any reason for his blood sugars to be running to high. He admits he as in the hospital several years back and his doses of insulin were much higher than they are now and he questions if he needs higher doses of insulin. He was told he was in a controlled environment in the hospital and his insulin doses were decreased because his blood sugars were doing well in the hospital. He does not remember any recent hospital stays. Madison was encouraged to follow up with Diabetes Education in 1 month and is scheduled to see Dr. Guillermo this week. Education plan/goals/objectives: Assessment/Scale: 1= needs instruction; 2= needs review; 3= comprehends jordan points; 4= demonstrates understanding/competency; NC= Not covered; N/A= not applicable Topics Learning Objectives: Diabetes Pathophysiology (define diabetes and identify own type of diabetes; list 2 options for treating diabetes) Dates Covered & Assessment: 06/22/23; 11/03/23; Healthy Eating (Describe effect of type, amount and timing of food on blood glucose; list 3 methods for planning meals) Dates Covered & Assessment: 06/22/23; 11/03/23; Being Active (State effect of exercise on blood glucose levels) Dates Covered & Assessment: 06/22/23; 11/03/23; Taking Medication (State effect of diabetes medicines on diabetes; name diabetes medication taking, action and side effects) Dates Covered & Assessment: 06/22/23; 11/03/23; Monitoring Glucose (Identify recommended blood glucose targets and personal targets) Dates Covered & Assessment: 06/22/23; 11/03/23; Acute Complications (List symptoms and treatment of hyper- and hypoglycemia, DKA, sick day guidelines and guidelines for severe weather or situation crisis and diabetes supply management) Dates Covered & Assessment: 06/22/23; 11/03/23; Chronic Complications (Define the relationship of blood glucose levels to oil heaterman complications of diabetes and screening and preventative measures) Dates Covered & Assessment: 06/22/23; 11/03/23; Lifestyle and Healthy Coping (Describe life style and healthy coping strategies to promote diabetes self-management) Dates Covered & Assessment: 06/22/23; 11/03/23; Diabetes Distress and Support (Recognize diabetes Distress and be able to identify support options) Dates Covered & Assessment: NC- 06/22/23; - 11/03/23; HEALTH GOAL #1: In order to meet this goal, I will: Re-start the Dexcom G7 sensor to monitor blood sugars. HEALTH GOAL #2: In order to meet this goal, I will: Clinical or Quality of Life outcome baseline: TEACHING MATERIALS GIVEN: Education: -Benefits of sensor therapy. -Reviewed how to insert the Dexcom G7 sensor. -Reviewed when to check glucose. INSTRUCTIONS GIVEN TO : -Start taking Glargine (Blue pen) 30 units at bedtime. -Start taking Novolog ([place] pen) 22 units before every meal 3x/day. -Change the sensor site every 10 days. -Call Dexcom if the sensor should fail or fall off at [phone] to get a replacement. -Call Pharmacy when it is time to refill the sensor RXs (when down to 1 sensor). -Check glucose first thing in the morning. -Check glucose anytime you feel different from the sensor reading. -Call Preethi with any questions at [phone] ext [phone]. -Follow up with Diabetes Education in 3 months. Patient/Family Verbalized Understanding FUTURE APPOINTMENTS: 11/03/2023 15:15 CWM/NO/CAT SCAN 11/05/2023 15:00 NHM/ENDOCRINE 01/11/2024 15:30 CWM/NO/OPTOMETRY/MERHAR 03/21/2024 13:30 CWM/NO/PACT 7 DM type is : Type 2 diabetes Length of Visit: 60 minutes /joanna/ PREETHI PONCE RN,BSN, CDCES DIABETES SAFETY SITTER, RN Signed: 11/03/2023 17:42 Receipt Acknowledged By: 11/04/2023 07:27 /es/ JAYE GUILLERMO MD STAFF PHYSICIAN 11/05/2023 07:29 /es/ Bunny Motley DNP, CUSTOMER SERVICE AGENT-BC, CNL Primary Care Nurse Practitioner PREETHI PONCE [facility]
--- OUTSIDE RECORDS SUMMARY | 2024-04-22 16:14 | XMS_ITS | Encounter Summary ---
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 Date/Time Encounter Type Encounter Description Reason Provider Source Nov 05, 2023 03:00 PM OFFICE O/P EST HI 40 MIN ENDOCRINOLOGY ICD-10-CM E11.8 Type 2 diabetes mellitus with unspecified complications KATERIN GUILLERMO Olivia Encounter Template Text not used by OR Assessments - Encounter Diagnoses This section includes the primary and secondary diagnoses documented for the Encounter. Date/Time Primary/Secondary Diagnosis Diagnosis Name Provider Source Nov 05, 2023 04:36 PM PRIMARY Type 2 diabetes mellitus with unspecified complications KATERIN GUILLERMO [place] [facility] [place] [facility] Nov 05, 2023 04:36 PM SECONDARY Essential (primary) hypertension MIMAKATERIN [place] [facility] [place] [facility] Nov 05, 2023 04:36 PM SECONDARY Hyperlipidemia, unspecified SCHENECTADYKATERIN [place] [facility] [place] [facility] Nov 05, 2023 04:36 PM SECONDARY Type 2 diabetes mellitus with diabetic polyneuropathy SCHENECTADYKATERIN [place] [facility] [place] [facility] Plan of Treatment: Future Appointments (+ 6 months) and Future Tests (+/- 45 days) The Plan of Treatment section includes future care activities for the patient from all [place] treatment[facility] specialty hospital. This section includes future appointments and future orders which are active, pending or scheduled. Future Appointments This section includes appointments that were scheduled to occur 6 months from the date of the Encounter, up to a maximum of 20 appointments. The data comes from all [place] treatment facilities. Appointment Date/Time Appointment Type Appointme nt Facility Name Nov 30, 2023 11:30 AM AMBULATORY - NONE [place] [facility] [place] [facility] Jan 11, 2024 03:30 PM AMBULATORY - MEDICINE OR [facility] [place] [facility] 2024 03:00 PM AMBULATORY - MEDICINE OR [facility] [place] [facility] Jan 19, 2024 02:00 PM AMBULATORY - MEDICINE OR [facility] [place] [facility] Jan 19, 2024 03:00 PM AMBULATORY - MEDICINE OR [facility] [place] [facility] Jan 26, 2024 02:00 PM AMBULATORY - MEDICINE OR [facility] [place] [facility] Mar 21, 2024 01:30 PM AMBULATORY - MEDICINE OR [facility] [place] [facility] Mar 25, 2024 01:40 PM AMBULATORY - MEDICINE OR [facility] [place] [facility] Mar 25, 2024 02:30 PM AMBULATORY - MEDICINE OR [facility] [place] [facility] Lab Results: +/- 30 days of the [...] Range Comment Oct 30, 2023 10:08 AM [facility] LIPID PANEL FASTING Specimen Type: SERUM No comment entered. Ordering Provider: KATERIN GUILLERMO Report Released Date/Time: August 06, 2023 11:47 AM Reporting Lab: [facility] [address] [facility] [address] Performing Lab: [facility] [address] [facility] [address] CHOLESTEROL 138 mg/dL TRIGLYCERIDE 161 mg/dL H 0-150 LDL calculated 68 mg/dL 0-129 CHOL/HDL 3.6 HDL CHOLESTEROL 38 mg/dL L 40-60 Oct 30, 2023 10:08 AM [facility] HEMOGLOBIN A1C PANEL Specimen Type: BLOOD Comment: Values obtained from A1C measurements can vary. For atypical A1C assays, a reported value of 7.0 could actually be between 6.72 and 7.28 if measured by a reference method. A reported value of 9.0 could actually be between 8.73 and 9.27. Ref: http://www.ngs p.org/CAPdata. asp Ordering Provider: KATERIN GUILLERMO Report Released Date/Time: August 06, 2023 11:47 AM Reporting Lab: [facility] [address] [facility] [address] Performing Lab: [facility] [address] [facility] [address] HEMOGLOBIN A1C 10.7 H 4.0-5.6 Oct 30, 2023 10:08 AM [facility] BASIC METABOLIC PANEL (non-fasting) Specimen Type: SERUM No comment entered. Ordering Provider: KATERIN GUILLERMO Report Released Date/Time: August 06, 2023 11:47 AM Reporting Lab: [facility] [address] [facility] [address] Performing Lab: [address] [address] UREA NITROGEN 21 mg/dL 7-25 GLUCOSE 236 mg/dL H 65-100 SODIUM 141 mmol/L 135-145 POTASSIUM 4.6 mmol/L 3.5-5.0 CHLORIDE 102 mmol/L 100-110 CO2 25 meq/L 20-30 CREATININE, Serum 1.43 mg/dL H 0.50-1.40 eGFR(CKD-EPI 2020) 51 mL/min L >60 Vital Signs: All taken on the encounter date This section contains inpatient and outpatient Vital Signs collected on the date of the Encounter. Date/Time Temperature Pulse Blood Pressure Respiratory Rate SP02 Pain Height Weight Body Mass Index Source Nov 05, 2023 03:03 PM 97.9 89 118/76 16 97 3 209 30 [place] [facility] [place] [facility] Social History: Smoking Status (Most current) and [...] took place. Date/Time Current Smoking Status Comment [facility] Sep 22, 2023 09:30 AM VA-TOBACCO FOR[facility] Tobacco Use History This section includes a history of the smoking, or tobacco-related health factors, that were collected on or before the date of the Encounter. The data comes from the OR facility where the Encounter took place. Date/Time Smoking Status/Tobac co Use Comment Facility Sep 22, 2023 09:30 AM VA-TOBACCO QUIT 15 YRS OR MORE [facility] [place] [facility] Apr 03, 2022 03:00 PM VA-TOBACCO FORMER USER [facility] [place] [facility] Apr 03, 2022 03:00 PM VA-TOBACCO QUIT 15 YRS OR MORE [facility] [place] [facility] Apr 04, 2021 03:30 PM VA-TOBACCO FORMER USER [facility] [place] [facility] Apr 04, 2021 03:30 PM VA-TOBACCO QUIT 15 YRS OR MORE [facility] [place] [facility] Dec 09, 2019 01:00 PM VA-TOBACCO FORMER USER [facility] [place] [facility] Dec 09, 2019 01:00 PM VA-TOBACCO QUIT 15 YRS OR MORE [facility] [place] [facility] Dec 01, 2018 01:48 PM VA-TOBACCO FORMER USER [facility] [place] [facility] Dec 01, 2018 01:48 PM VA-TOBACCO QUIT 15 YRS OR MORE [facility] Jan 21, 2018 03:37 PM [facility] Jan 21, 2018 03:37 PM VA-TOBACCO QUIT 15 YRS OR MORE [facility] Jan 19, 2017 01:56 PM QUIT TOBACCO USE > 7 YEARS AGO quit 40 myears ago [facility] Nov 30, 2015 01:04 PM QUIT TOBACCO USE > 7 YEARS AGO quit in 1979 [facility] July 09, 2001 08:11 AM QUIT TOBACCO USE > 7 YEARS AGO quit 1979 [facility] Radiology Reports: +/- 30 days of the [...] the Encounter. The data comes from all OR treatment facilities. Date/Time Radiology Report Provider Source Nov 03, 2023 03:[address] THORAX W/O CONT: FABIOLA STEVENSON [id number] -[id number] M Exm Date: NOV 03, 2023@15:25 Req Phys: BUNNY FOX Loc: CWM/NO/PACT 7 (Req'g Loc) Img Loc: [place]/CT Service: Unknown [facility] [place] [address] (Case [id number] COMPLETE) CT THORAX W/O CONT (CT Detailed) CPT:57004 Reason for Study: FOLLOW UP Clinical History: lung nodule seen on ct at [facility] 04/2022 Report Status: Verified Date Reported: NOV 04, 2023 Date Verified: NOV 04, 2023 Director Of Student Services E-Sig: Report: CT THORAX W/O CONT HISTORY: FOLLOW UP COMPARISON: CT 04/10/2022 TECHNIQUE: Helical CT of the chest, with multiplanar reformats, was performed at the local OR facility. 1346 images were received by the OR National Teleradiology Program (NTP) for interpretation. RADIATION DOSE (mGy*cm): 119 IV CONTRAST: Not administered. FINDINGS: Lower Neck: Unremarkable. Airways: There is a 1.1 cm filling defect in the mid trachea (/82). Lungs: Scattered pulmonary nodules bilaterally measuring up [...] on follow-up. READING PHYSICIAN: Sukhjinder Gutierrez M.D. -[id number] 11/04/2023 13:07 PDT [facility] National Teleradiology Program [phone] (For Medical Practitioner Use Only) Attention Patients / Veterans: If you have questions or concerns about these test results, please contact your ordering provider or primary care team. Primary Diagnostic Code: NO ALERT REQUIRED Primary Interpreting Staff: RADIOLOGY,OUTSIDE SERVICE, Staff Physician / RADIOLOGY,OUTSIDE SERVICE [facility] Encounter Notes: All associated encounter notes This section contains the clinical notes associated to the Encounter. Date/Time Encounter Note(s) Provider Source Nov 05, 2023 03:28 PM ACCOUNTING OF DISC LOSURES NOTE: LOCAL TITLE: STATE PRESCRIPTION DRUG MONITORING PROGRAM STANDARD TITLE: ACCOUNTING OF DISCLOSURES NOTE DATE OF NOTE: NOV 05, 2023@15:28:50 ENTRY DATE: NOV 05, 2023@15:28:50 AUTHOR: KATERIN GUILLERMO COSIGNER: URGENCY: STATUS: COMPLETED This PDMP query was submitted by Katerin Guillermo MD. The clinical justification for this PDMP query is to review controlled substances prescribed outside of the [facility], and any additional information that may become available, as an important component of standard clinical care, and in accordance with [facility] policy. [facility]. No prescription(s) for controlled substances outside the [facility] were found in the last 90 days. /joanna/ KATERIN GUILLERMO MD STAFF PHYSICIAN Signed: 11/05/2023 15:29 KATERIN GUILLERMO [facility] [place] 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 Pt administers insulin himself, and reminds. Takes glargine with evening meal. He is missing a significant number of doses. All endocrine labs were reviewed with the patient. Barriers/s supports for care: Lives with . Memory loss is a barrier . Taking three meals a day. Eats lunch out most days. Pt is generally away from home at lunch. no sweets, often fruit. Medications for diabetes: INSULIN,GLARGINE-YFGN 100UNIT/ML PEN 3ML INJECT 30 UNITS HOLD SUBCUTANEOUSLY ONCE DAILY 22 units TID. BG readings: CGM All very high Hgba1c? HEMOGLOBIN A1C TREND 10/30/2023 10:08 BLOOD 10.7 H 07/20/2023 12:21 BLOOD 11.4 H 05/06/2023 15:55 BLOOD 9.4 H 01/14/2023 13:27 BLOOD 9.5 H 10/13/2022 08:46 BLOOD 8.2 H Weight trend:214 lbs BMI 30.77 209 lbs today Lost 40 lbs sine 03/2022 Food insecurity no, but some financial concerns. 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 attempts to manage CHO. Episodes of hypoglycemia: no Hypoglycemia unawareness: Neuropathy pain: numbness Last eye evaluation: 12/[address] Has appt in January Last nephropathy screen MICROALBUMIN July 20, 2023@12:21 URINE mALB/Cr: 105.8 H mg/G 0 - 29.9 FindingsCREATININE-EGFR 10/30/23 10:08 1.43 H 07/20/23 12:21 1.20 05/06/23 15:55 1.36 Statin therapy: Oct 29 July 19 Reference 2023 2023 CHOL 138 131 mg/dL <7 - 199 TRIG 161 H 122 mg/dL 0 - 150 HDL 38 L 40 mg/dL 40 - 60 LDL 68 67 mg/dL 0 - 55 CAD: PVD On asa: yes emergency kit/glucose tabs: has glucagon, Active problems - Computerized Problem List is [...] Peripheral vascular disease 13. Polyp Colon (SCT [id number]) 14. Depression 15. Gynecomastia 16. Hiatal hernia 17. Anxiety 18. Osteoarthritis of knee 19. Hyperlipidemia (SNOMED CT 92128307) 20. Hypertension (SNOMED CT 58958954) 21. Obesity (SNOMED CT 431187198) 22. Hyperlipidemia (SNOMED CT 62994812) 23. Hepatitis C Active Outpatient Medications (including [...] ACTIVE DAYS INSULIN,GLARGINE-YFGN 100UNIT/ML PEN 3ML INJECT 30 UNITS HOLD SUBCUTANEOUSLY ONCE DAILY INCREASE BY ONE UNIT A DAY UNTIL MORNING BLOOD GLUCOSE LESS THAN 130 OR TO A MAXIMUM OF 50 UNITS DAILY insulin aspart KETOCONAZOLE 2% CREAM APPLY A SMALL AMOUNT [...] 81MG BY MOUTH ONCE DAILY ACTIVE Non-VA DESVENLAFAXINE(EQV-PRISTIQ) 100MG SA TAB 100MG BY ACTIVE MOUTH ONCE DAILY Non-VA DICLOFENAC NA 75MG EC TAB 75MG BY MOUTH TWICE DAILY ACTIVE NEEDED Non-VA DOXEPIN HCL 75MG CAP 75MG BY MOUTH AT BEDTIME ACTIVE Non-VA GLUCOSE CHEW TAB TAB,CHEWABLE FOUR TABLETS BY MOUTH ACTIVE ONE TIME NEEDED lidocaine oint SHX: as above ROS: PE: affect pleasant appropriate speaking easily in full sentences Feet pulses moderate decrease sensory to monofilament marked decrase lesions no followed by [facility] podiatry Medical Decision Making: 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 If bg remain elevated, may increase to 45, then to 50 units daily. Call if concerns will work with patient on ways to encourage consistency of dose administration. With his being away from home at lunch, and often outdoors, he may often be not receiving noon dose, and this may be difficult to avoid. Carbohydrate targets 45 gm TID Blood sugar targets 130 premeal and 150-180 after Hemoglobin A1c Targets 7.5 Obesity likely weight loss due to poorly controlled DM Hypertension well controlled Hyperlipidemia Not quite at target on high intensity statin and ezetimbe Team follow up nutrition dm education. lab bmp hgba1c next visit Insulin orders updated in cprs F/u three mos FTF Medication Reconciliation: Outpatient: Has the patient been taking medications as documented in the EMLR? No: Discrepencies were identified. See below. Essential Medication List for Review used to [...] discontinued in the past 90 days. - Discrepancies were identified, addressed, and discussed with the patient/caregiver at this encounter. - All changes in medications, including all non-VA/Herbal/OTC medications were entered into CPRS. - If there were any medications the patient should no longer take, they were discontinued. - The patient/caregiver was instructed to update this list, discard old lists, and take this list to the next appointment, whether with a VA or non-VA provider. /adelfo GUILLERMO MD STAFF PHYSICIAN Signed: 11/05/2023 16:40 11/05/2023 ADDENDUM STATUS: COMPLETED Discussed possible damage to insulin . He does not know if he has changed batches of insulin since bg tatyana. Try using a fresh batch of both insulins. /adelfo GUILLERMO MD STAFF PHYSICIAN Signed: 11/05/2023 16:42 KATERIN GUILLERMO [facility]
--- OUTSIDE RECORDS SUMMARY | 2024-04-22 16:14 | XMS_ITS | Continuity of Care Document ---
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) MDM HIGH MUST MEET 2 OUT OF [...] Modified Time Details Appointments INJECTION 2024 02:30P Kvng BOWIE Not available Not available Not available Lab uric acid, serum or plasma 2024 025 [facility], [address] [place] [address], [place], [address], 04/08/2024 14:31:48 HbA1c (hemoglob in A1c), blood 2024 025 [facility], [address], [place], [address], 04/08/2024 14:31:48 CMP, serum or plasma 2024 025 [facility], [address] [place] [address], [place], [address], 04/08/2024 14:31:48 microalbu min, urine 2024 025 [facility], [address] [place] [address], [address], 04/08/2024 14:31:48 lipid panel, serum 2024 025 [facility], [address] [place] [address], [place], [address], 04/08/2024 14:31:48 CBC w/ auto diff 2024 025 [facility], [address] [place] [address], [address], 04/08/2024 14:31:48 PSA, serum or plasma 2024 025 [facility], [address] [place] [address], [place], [address], 04/08/2024 14:31:48 Referral None recorded. Procedures None recorded. Surgeries None recorded. Imaging None recorded. Medication Orders None recorded. Patient TargetsNo targets recorded. Patient Instructions Encounter Date Encounter Id Patient Instructions Last Modified By Organization Details Last Modified Time 04/08/2024 [id number] Peripheral Arterial Disease (PAD): Care Instructions Not [...] 04/08/2024 14:30:30 Reason for Referral None Reported. Problems Name Problem SNOMED Code Status Onset Date Resolution Date Notes Provider Name and Address Organization Details Recorded Time Type 2 diabetes mellitus 37093923 Active 2017 Paty peck [facility] 8 12:08:03 Hyperlip idemia 42695989 Active 2017 Paty peck [facility] 8 12:08:07 Primary erectile dysfunct ion 746756311 Active 2017 Paty peck [facility] 8 12:08:25 Essentia l hyperten emely 18780090 Active 2017 Paty peck [facility] 8 12:08:29 Osteoart hritis of knee 722623988 Active 2017 Paty peck [facility] 8 12:08:41 Supraspi natus tear 502282400 Active 2017 Paty peck [facility] 8 12:08:52 Gout 47661800 Active 2017 Paty peck [facility] 8 12:08:56 Depressi ve disorder 20121091 Active 2017 Paty peck [facility] 8 12:09:00 Neuropat hy due to diabetes mellitus 061461431 Active 2017 Paty peck [facility] 8 12:09:08 Peripher al angiopat hy due to diabetes mellitus 933786336 Active 2017 Paty peck [facility] 8 12:09:20 Abnormal weight loss 108168364 Active 2017 Paty peck [facility] 8 12:09:43 Steatosi s of liver 920112602 Active 2021 Mike Bowie, DO [address] [place] [address], [place], [address], [facility] 2 13:56:29 Peripher al vascular disease 809254610 Active 2021 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 5 14:30:11 Problem Notes None recorded. Procedures Surgical History Date Name Laterality Status Provider Name and Address Organization Details Recorded Time 7 Colonoscopy completed Paty Zamora [facility] 01/27/2018 11:30:01 Imaging Results None recorded. Procedure Notes None recorded. Medical Equipment None Reported. Allergies Allergen ID Allergen Name Allergen Category Reaction Reaction Severity Criticality Documentation Date Start Date Code Code System Note Provider Name and Address Organization Details Recorded Time 252 metformin medicatio n Not available Not available Not available 05/11/2017 6809 [facility] 8 12:07:49 253 erythromy yecenia medicatio n Not available Not available Not available 05/11/2017 4053 RxNorm Paty peck [facility] 8 12:07:56 Medications Name Sig Start Date [...] Updated DateTime 5 177.8 cm 35.9 kg/m2 744942. 09 g 92 /min 98 % 98 % 120 mm[Hg] 68 mm[Hg] Louise Calderon [facility] 5 13:41:36 Social History Question Answer Notes LastModified by Organizat ion Details LastModified Time Tobacco Smoking Status Former Smoker Not Available [facility] 01/10/2020 03:36:24 What Was The Date Of Your Most Recent Tobacco Screening? 04/08/2024 [email or web address] Information not available 04/08/2024 Do You Or [...] pneumococcal polysaccharide PPV23 08/26/19 13 completed Mike Bowie, [address] [place] [address], [address], [facility] 10/26/2020 14:13:32 zoster, unspecified formulation 04/06/19 13 completed Mike Bowie, [address] [place] [address], [address], [facility] 10/26/2020 14:13:45 zoster, unspecified formulation 07/02/19 18 completed Mike Bowie, [address] [place] [address], [address], [facility] 10/26/2020 14:13:59 COVID-19, mRNA, LNP-S, PF, 100 mcg/0.5mL dose or 50 mcg/0.25mL dose 05/16/19 21 completed Mike Bowie DO [address] [place] [address], [address], [facility] 10/26/2020 14:14:57 COVID-19, mRNA, LNP-S, PF, 100 mcg/0.5mL dose or 50 mcg/0.25mL dose 06/06/19 21 completed Mike Bowie DO [address] [place] [address], [address], [facility] 10/26/2020 14:15:07 COVID-19, mRNA, LNP-S, PF, 30 mcg/0.3 mL dose 01/16/20 21 completed Paty peck [facility] 01/15/2021 13:31:46 Influenza, split virus, quadrivalent, preservative 12/26/19 21 completed Paty peck [facility] 07/29/2021 09:46:23 Pneumococcal conjugate PCV 13 05/05/19 17 completed Paty peck [facility] 07/29/2021 09:46:38 Tdap 05/05/19 17 brigitte peck [facility] 07/29/2021 09:46:54 COVID-19, mRNA, LNP-S, PF, 30 mcg/0.3 mL dose 07/30/19 completed Paty peck [facility] 07/29/2021 13:40:53 COVID-19, mRNA, LNP-S, bivalent, PF, 10 mcg/0.2 mL dose 12/21/19 completed Donya peck [facility] 02/04/2022 14:49:51 influenza, unspecified formulation 12/21/19 completed Donya peck [facility] 02/04/2022 14:50:06 SARS-COV-2 (COVID-19) vaccine, UNSPECIFIED 12/20/19 23 completed Mike Bowie DO [address] [place] [address], [address], [facility] 12/20/2022 07:55:33 Influenza, split virus, quadrivalent, preservative 01/21/20 18 completed Paty peck [facility] 01/27/2018 11:26:08 COVID-19, mRNA, LNP-S, PF, arlene-sucrose, 30 mcg/0.3 mL 02/15/20 24 completed Faith peck [facility] 02/15/2024 11:30:16 influenza, unspecified formulation 02/15/20 24 completed Faith peck [facility] 02/15/2024 11:30:39 Past Encounters Encounter ID Performer Location Encounter Start Date Encounter Closed Date Diagnosis/Indication Diagnosis SNOMED-CT Code Diagnosis ICD10 Code Diagnosis Note [id number] Mike Bowie DO [facility] [address] [address] 04/08/2024 13:29:34 04/08/2024 14:53:55 Essential hypertension 23178063 I10 excellent bp continues hard workno changes in meds med tolerated Hyperlipidemia 16426878 E78.00 will need to rechk Peripheral vascular disease 018418865 I73.9 has another follow up with vascular to document via [place] good flowhe will now like to get his knees injected with elier so he can get more active Type 2 jass betes mellitus 59697721 E11.[address] overdue has [...] [facility] of [facility] ypatitheresa has standing order as of 02/07/21 Gout 94474572 M10.9 will need to chk uric acid Osteoarthr itis of knee 972183391 M17.11 will order mamadou Ivy hematuria 72446687 5 R31.0 Health Concerns Section Related Observation LastModified by Organization Detai ls LastModified Time None Recorded Concern Status LastModified by Organization Details LastModified Time None Recorded Payers Encounter Date Sequence Insurance Name Policy Number Policy Mohan Covered Member ID Mohan Member ID Guarantor Name 04/08/2024 1 MEDICARE [place]: [employer] Prasanth A Pirog [id number] Prasanth Mukherjee Pirog 04/08/[address] [facility] [id number] Prasanth Mukherjee Pirog [id number] Prasanth George Notes Date Note Type Note Provider Name and Address Organization Details Recorded Time 5 text/htm l Care Management - DiabetesReported [...] knees have been bothering a lot Mike Bowie, DO [address], [place], [address], [facility] 04/08/2024 14:31:31
--- OUTSIDE RECORDS SUMMARY | 2024-04-22 16:14 | XMS_ITS ---
Author Name [facility] [facility] [place] [facility] [place] Address [address] [place] [address] Care Team Providers Care Medical Records Library Professor Name Role Phone BUNNY MOTLEY Primary Care [...] PART B Dec 07, 2014 PART B [id number] MECCA STEVENSON PATIENT MEDICARE (WNR) MEDICARE (M) PART A Jan 07, 2013 PART A [id number] MECCA STVEENSON PATIENT Selected Encounter This section includes the information on record at CT for the Encounter. Date/Time Encounter Type Encounter Description Reason Provider Source Sep 07, 2023 03:30 PM OFF/OP EST MAY X REQ PHY/QHP PRIMARY CARE/MEDICINE ICD-10-CM Z71.9 Counseling, unspecified JUANIS HIGGINS IHE Encounter Template Text not used by CT Assessments - Encounter Diagnoses This section includes the primary and secondary diagnoses documented for the Encounter. Date/Time Primary/Secondary Diagnosis Diagnosis Name Provider Source Sep 07, 2023 03:53 PM PRIMARY Counseling, unspecified TY HIGGINSI JAIME [facility] [place] [facility] Plan of Treatment: Future Appointments (+ 6 months) and Future Tests (+/- 45 days) The Plan of Treatment section includes future care activities for the [facility] This section includes future appointments and future orders which are active, pending or scheduled. Future Appointments This section includes appointments that were scheduled to occur 6 months from the date of the Encounter, up to a maximum of 20 appointments. The data comes from all CT treatment facilities. Appointment Date/Time Appointment Type Appointme nt Facility Name Sep 21, 2023 02:00 PM AMBULATORY - MEDICINE [facility] [place] [facility] Sep 22, 2023 09:30 AM AMBULATORY - MEDICINE [facility] [place] [facility] Oct 06, 2023 01:00 PM AMBULATORY - MEDICINE [facility] [place] [facility] Nov 03, 2023 02:00 PM AMBULATORY - MEDICINE [facility] [place] [facility] Nov 03, 2023 03:15 PM AMBULATORY - NONE [facility] [place] [facility] Nov 05, 2023 03:00 PM AMBULATORY - MEDICINE [facility] [place] [facility] Nov 30, 2023 11:30 AM AMBULATORY - NONE [facility] [place] [facility] Jan 11, 2024 03:30 PM AMBULATORY - MEDICINE [facility] [place] [facility] 2024 03:00 PM AMBULATORY - MEDICINE [facility] [place] [facility] Jan 19, 2024 02:00 PM AMBULATORY - MEDICINE [facility] [place] [facility] Jan 19, 2024 03:00 PM AMBULATORY - MEDICINE [facility] [place] [facility] Jan 26, 2024 02:00 PM AMBULATORY - MEDICINE CT [facility] [place] [facility] Lab Results: +/- 30 days of the encounter This section includes the Chemistry and Hematology Lab Results on record with CT for the patient. Radiology Reports and Pathology Reports are provided separately, in subsequent sections. Lab Results This section contains the Chemistry/Hematology Results that were resulted 30 days before or 30 daysafter the date of the Encounter. Date/Time Source Result Type Result - Unit Interpretation Reference Range Comment Sep 07, 2023 04:[address] [facility] [place] [facility] MICROSCOPIC AUTOMATED, URINE Specimen Type: URINE Comment: If Glucose = >500 and Ketones are positive, please alert the Physician. Critical result acknowledged. DR PENA 09/07/23@1622 BY Ordering Provider: LEODAN MOTLEY Report Released Date/Time: Sep 07, 2023 03:38 PM Reporting Lab: [address] [address] Performing Lab: [address] [address] UA WBC TNTC /[HPF] 0-5 UA BACTERIA 3+ /[HPF] NoneObs UA MUCUS FEW /[LPF] Trace UA RBC TNTC /[HPF] 0-3 UA SQUAMOUS EPITH FEW /[HPF] Sep 07, 2023 04:00 PM [facility] URINALYSIS CLEAN CATCH Specimen Type: URINE Comment: If Glucose = >500 and Ketones are positive, please alert the Physician. Critical result acknowledged. DR PENA 09/07/23@1622 BY Ordering Provider: LEODAN MOTLEY Report Released Date/Time: Sep 07, 2023 03:38 PM Reporting Lab: [address] [address] Performing Lab: [address] [address] UA COLOR [place] Yellow UA APPEARANCE Turbid Clear UA GLUCOSE [...] Height Weight Body Mass Index Source Sep 07, 2023 03:50 PM 110/76 [facility] Sep 07, 2023 03:47 PM 97.4 96 16 2 [facility] [place] [facility] Social History: Smoking Status (Most current) and Tobacco Use (All prior to encounter date) This section includes the most current, and the historical, smoking and tobacco- related health factors from the CT facility where the Encounter took place. Current Smoking Status This section includes the most current smoking, or tobacco-related health factor, from the CT facility where the Encounter took place. Date/Time Current Smoking Status Comment [facility] it Apr 03, 2022 03:00 PM VA-TOBACCO QUIT [address] [facility] Tobacco Use History This section includes a history of the smoking, or tobacco-related health factors, that were collected on or before the date of the Encounter. The data comes from the CT facility where the Encounter took place. Date/Time Smoking Status/Tobac co Use Comment Facility Apr 03, 2022 03:00 PM VA-TOBACCO QUIT 15 YRS OR MORE [facility] [place] [facility] Apr 04, 2021 03:30 PM VA-TOBACCO FORMER USER [facility] [place] [facility] Apr 04, 2021 03:30 PM VA-TOBACCO QUIT 15 YRS OR MORE [facility] [place] [facility] Dec 09, 2019 01:00 PM VA-TOBACCO FORMER USER [facility] [place] [facility] Dec 09, 2019 01:00 PM VA-TOBACCO QUIT [address] [facility] [place] [facility] Dec 01, 2018 01:48 PM VA-TOBACCO FORMER USER [facility] [place] [facility] Dec 01, 2018 01:48 PM VA-TOBACCO QUIT 15 YRS OR MORE [facility] [place] [facility] Jan 21, 2018 03:37 PM VA-TOBACCO FORMER USER [facility] [place] [facility] Jan 21, 2018 03:37 PM VA-TOBACCO QUIT 15 YRS OR MORE [facility] [place] [facility] Jan 19, 2017 01:56 PM QUIT TOBACCO USE > 7 YEARS AGO quit 40 myears ago [facility] [place] [facility] Nov 30, 2015 01:04 PM QUIT TOBACCO USE > 7 YEARS AGO quit in 1979 [facility] [place] [facility] July 09, 2001 08:11 AM QUIT TOBACCO USE > 7 YEARS AGO quit 1979 [facility] Radiology Reports: +/- 30 days of the [...] the Encounter. The data comes from all CT treatment facilities. Date/Time Radiology Report Provider Source Sep 21, 2023 03:08 PM KNEE 3 VIEWS (RIGHT): FABIOLA STEVENSON [id number] [phone] Exm Date: SEP 21, 2023@15:08 Req Phys: SAM MEJÍA Loc: CWM/NO/PACT 7 NURSE (Req'g Loc Img Loc: [facility]/BUILDING 1 Service: Unknown [facility] , (Case [id number] COMPLETE) KNEE 3 VIEWS (RIGHT) (RAD Detailed) CPT:60825 Proc Modifiers : RIGHT Reason for Study: Fall onto right knee Clinical History: pain/swelling Report Status: Verified Date Reported: SEP 21, 2023 Date Verified: SEP 21, 2023 Radiology Transporter E-Sig:/ES/TAZ VERGARA JR Report: Study: AP weight-bearing [...] Primary Interpreting Staff: TAZ VERGARA JR, Radiologist (Radiology Transporter) /TAZ KILLIAN JR [facility] Pathology Reports: +/- 30 days of the [...] the Encounter. The data comes from all CT treatment facilities. Date/Time Pathology Report Provider Source Sep 07, 2023 04:00 PM LR MICROBIOLOGY REPORT: Reporting Lab: [facility] [CLIA# [id number]] [address] [place] [address] Accession [UID]: [id number] [[id number]] Received: Sep 07, 2023@16:48 Collection sample: URINE CLEAN CATCH Collection date: Sep 07, 2023 16:00 Site/Specimen: URINE Provider: BUNNY MOTLEY Comment on specimen: POSITIVE CULTURE RESULTS MAY NOT REPRESENT CLINICAL INFECTION. CONSIDER NEED FOR ANTIBIOTICS IN THE CONTEXT OF UTI SYMPTOMS. Test(s) ordered: URINE CULTURE([facility]).......... completed: Sep 14, 2023 11:07 * BACTERIOLOGY FINAL REPORT => Sep 14, 2023 11:07 TECH CODE: [id number] CULTURE RESULTS: ESCHERICHIA COLI - Quantity: >100,000 [...] Report Performed By: Escherichia Coli Performed By: [facility] [CLIA# [id number]] [address] [place] [address] Bact Report Remark #1 Performed By: [facility] [CLIA# [id number]] [address] [place] [address] [facility] Encounter Notes: All associated encounter notes This section contains the clinical notes associated to the Encounter. Date/Time Encounter Note(s) Provider Source Sep 07, 2023 04:42 PM PHYSICIAN NOTE: LOCAL TITLE: MD NOTE STANDARD TITLE: PHYSICIAN NOTE DATE OF NOTE: SEP 07, 2023@16:42 ENTRY DATE: SEP 07, 2023@16:42:14 AUTHOR: TODD PENA EXP COSIGNER: URGENCY: STATUS: COMPLETED MOD note. I recieved critical value call: Collection DT Specimen Test Name Result Units Ref Range 09/07/2023 16:00 URINE !! UA COLOR [place] Ref: Yellow !! UA APPEARANCE Turbid Ref: Clear !! UA pH 6.0 5.0 - 9.0 !! UA GLUCOSE >1000 mg/dL Ref: Negative !! UA KETONES TRACE mg/dL Ref: Negative !! UA BLOOD LARGE mg/dL Ref: Negative !! UA PROTEIN 70 mg/dL Ref: Negative !! UA LEUKOCYTE LARGE Ref: Negative !! UA NITRITE NEGATIVE mg/dL Ref: Negative !! UA BILIRUBIN NEGATIVE mg/dL Ref: Negative !! UA UROBILINOGEN <2.0 mg/dL Ref: <2.0 !! SpeGra 1.032 H 1.016 - 1.022 !! UA WBC TNTC /HPF 0 - 5 !! UA RBC TNTC /HPF 0 - 3 !! UA SQUAMOUS EPITH FEW /HPF !! UA BACTERIA 3+ /HPF !! UA MUCUS FEW /LPF Ref: Trace Please call if you have any questions or concerns. I spoke with veshelley. He picked up the antibiotics but has yet to take the first dose. He said he will in a few min. He hasn't checked his glucose today. he cannot figure out how to use the dexcom. I encouraged him to check soon. If it is very high or if he develops any fevers chills or night sweats I recommed he go to the local ER. He might need IV fluids and IV antibiotics. He reports he is not feeling that ill so will hold off for now. I added on a urine culture. /joanna/ Todd Pena MD Staff Physician Signed: 09/07/2023 16:48 Receipt Acknowledged By: 09/08/2023 07:03 /joanna/ LENNIE Lundy DNP, LOUANN Primary Care Nurse Practitioner 09/08/2023 07:30 /adelfo BAIGL Primary Care RN TODD PENA [facility] Sep 07, 2023 03:48 PM PRIMARY CARE OUTPATIENT NOTE: LOCAL TITLE: AMBULATORY/OUTPATIENT CARE NOTE STANDARD TITLE: PRIMARY CARE OUTPATIENT NOTE DATE OF NOTE: SEP 07, 2023@15:48 ENTRY DATE: SEP 07, 2023@15:48:26 AUTHOR: SHAYLA HIGGINS EXP COSIGNER: URGENCY: STATUS: COMPLETED F: Walk In D/A: Vet presents to primary care with complaint of UTI symptoms for 1 week. Vet with history of DM. Vet states he has increased frequency with minimal results, urine color is light red, also 9/10 pain with urination. Vet also states his spouse took his temp earlier today and was 99.8. Vet denies fever or chills. Vet afebrile at time of visit. Consulted with PCP who orders Doxycycline 100mg twice daily for 7 days. Also Vet will go to lab today for urinalysis. Vet also requesting renewals of Pregabalin and Atorvastatin, both renewed by PCP. Vet overdue for PCP F/U visit scheduled for 09/21, can follow up on UTI at that time. R: Vet to pharmacy and lab via voluntary escort. /joanna/ Shayla CRENSHAW RN CNJoelle Primary Care RN Signed: 09/07/2023 15:53 Receipt Acknowledged By: 09/08/2023 07:04 /joanna/ LENNIE Lundy DNP, LOUANN Primary Care Nurse Practitioner SHAYLA HIGGINS [facility] MARIAMBrooklynn [facility] Sep 07, 2023 03:40 PM ACCOUNTING OF DISCLOSURES NOTE: LOCAL TITLE: STATE PRESCRIPTION DRUG MONITORING PROGRAM STANDARD TITLE: ACCOUNTING OF DISCLOSURES NOTE DATE OF NOTE: SEP 07, 2023@15:40 ENTRY DATE: SEP 07, 2023@15:40 AUTHOR: BUNNY MOTLEY EXP COSIGNER: URGENCY: STATUS: COMPLETED This PDMP query was submitted by Bunny Motley STACKER OPERATOR. The clinical justification for this PDMP query is to review controlled substances prescribed outside of the [facility], and any additional information that may become available, as an important component of standard clinical care, and in accordance with [facility] policy. Patient information was shared with the PDMP Appriss [place]. No prescription(s) for controlled substances outside the [facility] were found in the last 90 days. /joanna/ Bunny Motley DNP, SCCM ADMINISTRATOR-BC, CNL Primary Care Nurse Practitioner Signed: 09/07/2023 15:40 BUNNY MOTLEY [facility]
--- OUTSIDE RECORDS SUMMARY | 2024-04-22 16:14 | XMS_ITS | Data Portability ---
Author Organization [facility], , [facility] Address [address] [place] [address] Assessment No assessment recorded. Plan of Treatment Reminders Order Date Submit Date Provider Last Modified By Organization Details Last Modified Time Details Appointments None record ed. Lab None record ed. Referral None record ed. Procedures None record ed. Surgeries None record ed. Imaging None record ed. Medication Orders None record ed. Patient TargetsNo targets recorded. Patient InstructionsNo instructions recorded. Reason for Referral None Reported. Results Created Date Observation Date Name Description Value Unit Range Abnormal Flag Note LastModifiedBy Organization Detail LastModifiedTime Result Notes None recorded. Procedures Surgical History Date Name Laterality Status Provider Name and Address Organization Details Recorded Time 5 Berry - Colonoscopy completed Alli Smart MD [address] [place] [address], [id number], [facility] [place] 14:44:27 Imaging Results None recorded. Procedure Notes None recorded. Medical Equipment None Reported. Medications Name Sig Start Date Stop Date Status Note LastModified by Organization Details LastModified Time atorvastatin calcium 40 mg tabs active Not Available Not Available Not Available valsartan 320 mg tabs active Not Available Not Available Not Available peg-3350/electr olytes 236 gm solr active Not Available Not Available Not Available prochlorperazin e maleate 10 mg tabs active Not Available Not Available Not Available doxepin hcl 75 mg caps active Not Available Not Available Not Available glimepiride 2 mg tabs active Not Available Not Available Not Available gabapentin 300 mg caps active Not Available Not Available Not Available duloxetine hcl 60 mg cpep active Not Available Not Available N ot Available cyclobenzaprine 10 mg tablet active Not Available Not Available Not Available atorvastatin 40 mg tablet TAKE 1 TABLET BY MOUTH EVERY DAY active Not Available Not Available No t Available atorvastatin 20 mg tablet TAKE 1 TABLET BY MOUTH ONCE A DAY active Not Available Not Available No t Available doxepin 75 mg capsule TAKE 1 CAPSULE BY MOUTH AT BEDTIME active Not Available Not Available No t Available glimepiride 2 mg tablet TAKE 1 TABLET BY MOUTH EVERY DAY active Not Available Not Available No t Available oxycodone-aceta minophen 5 mg-325 mg tablet active Not Available Not Available Not Available amoxicillin 875 mg tablet TAKE 1 TABLET BY MOUTH TWICE A DAY active Not Available Not Available No t Available valsartan 320 mg tablet TAKE 1 TABLET BY MOUTH EVERY DAY active Not Available Not Available No t Available gabapentin 300 mg capsule TAKE 1 CAPSULE BY MOUTH ONCE A DAY NEEDED active Not Available Not Available No t Available morphine ER 15 mg tablet,extended release active Not Available Not Available Not Available naproxen 500 mg tablet active Not Available Not Available Not Available bupropion HCl XL 300 mg 24 hr tablet, extended release TAKE 1 TABLET BY MOUTH ONCE A DAY active Not Available Not Available No t Available duloxetine 60 mg capsule,delayed release TAKE 1 CAPSULE BY MOUTH ONCE A DAY TAKE ONE CAPSULE BY MOUTH EVERY DAY active Not Available Not Available No t Available Vitals None Recorded Social History None recorded. Functional Status None recorded. Mental Status None recorded. Family History Nothing Reported. Medical History No medical history recorded. Past Encounters Encounter ID Performer Location Encounter Start Date Encounter Closed Date Diagnosis/Indication Diagnosis SNOMED-CT Code Diagnosis ICD10 Code Diagnosis Note [id number] [facility], [address] [id number] 11/20/2014 13:25:57 11/20/2014 14:48:39 Health Concerns Section Related Observation LastModified by Organization Detai ls LastModified Time None Recorded Concern Status LastModified by Organization Details LastModified Time None Recorded Advance Directives Directive None Recorded Payers Encounter Date Sequence Insurance Name Policy Number Policy Mohan Covered Member ID Mohan Member ID Guarantor Name 11/20/2014 1 [facility] [id number] Daquan George [id number] Prasanth George
--- OUTSIDE RECORDS SUMMARY | 2024-04-22 16:14 | XMS_ITS | Encounter Summary ---
Author Name [facility] Organization [facility] Address [address] [place] [address] Care Team Providers Care Morning Caregiver Name Role Phone BUNNY FOX Primary Care [...] PART B Dec 07, 2014 PART B [id number] MECCA STEVENSON PATIENT MEDICARE (WNR) MEDICARE (M) PART A Jan 07, 2013 PART A [id number] MECCA STEVENSON PATIENT Selected Encounter This section includes the information on record at [place] for the Encounter. Date/Time Encounter Type Encounter Description Reason Pro vider Source IHE Encounter Template Text not used by [place]
--- OUTSIDE RECORDS SUMMARY | 2024-04-22 16:15 | XMS_ITS | Encounter Summary ---
Author Name [facility] [place] Address [address] [place] [id number] Care Team Providers Care Buffing Wheel Inspector Name Role Phone BUNNY FOX Primary Care [...] PART B Dec 07, 2014 PART B [id number] MECCA STEVENSON PATIENT MEDICARE (WNR) MEDICARE (M) PART A Jan 07, 2013 PART A [id number] MECCA STEVENSON PATIENT Selected Encounter This section includes the information on record at [place] for the Encounter. Date/Time Encounter Type Encounter Description Reason Provider Source Jan 11, 2024 03:30 PM COMPRE OPH EXAM EST PT 1/> OPTOMETRY ICD-10-CM H33.322 Round hole, left eye MERHAR,ARRON B IHE Encounter Template Text not used by [place] Assessments - Encounter Diagnoses This section includes the primary and secondary diagnoses documented for the Encounter. Date/Time Primary/Secondary Diagnosis Diagnosis Name Provider Source Jan 11, 2024 04:22 PM PRIMARY Round hole, left eye MERHAR,ARRON B [place] [facility] Jan 11, 2024 04:22 PM SECONDARY Presence of intraocular lens ARRON PRADO [place] [facility] [place] [facility] Jan 11, 2024 04:22 PM SECONDARY Puckering of macula, bilateral ARRON PRADO B [place] [facility] [place] [facility] Jan 11, 2024 04:22 PM SECONDARY Regular astigmatism, bilateral ARRON PRADO B [place] [facility] [place] [facility] Jan 11, 2024 04:22 PM SECONDARY Type 2 diabetes mellitus without complications ARRON PRADO [facility] Plan of Treatment: Future Appointments (+ 6 months) and Future Tests (+/- 45 days) The Plan of Treatment section includes future care activities for the patient from all [place] [facility]. This section includes future appointments and future orders which are active, pending or scheduled. Future Appointments This section includes appointments that were scheduled to occur 6 months from the date of the Encounter, up to a maximum of 20 appointments. The data comes from all [place] treatment facilities. Appointment Date/Time Appointment Type Appointme nt Facility Name 2024 03:00 PM AMBULATORY [place]ICINE [place] [facility] [place] [facility] Jan 19, 2024 02:00 PM AMBULATORY [place]ICINE [place] [facility] [place] [facility] Jan 19, 2024 03:00 PM AMBULATORY [place]ICINE [place] [facility] [place] [facility] Jan 26, 2024 02:00 PM AMBULATORY [place]ICINE [place] [facility] [place] [facility] Mar 21, 2024 01:30 PM AMBULATORY [place]ICINE [place] [facility] [place] [facility] Mar 25, 2024 01:40 PM AM[place]ULATORY [place] [facility] [place] [facility] Mar 25, 2024 02:30 PM AM[place]UL[place]ORY [place] [facility] [place] [facility] Active, Pending, and Scheduled Orders This section includes a listing of several types of active, pending, and scheduled orders, including clinic medications orders, diagnostic test orders, procedure orders and consult orders; where the start date of the order is 45 days before the date of the Encounter or 45 days after the date of theEncounter. The data comes from all [facility]. Test Date/Time Test Type Test Details Facility Name Jan 19, 2024 03:21 PM Consult Order COMMUNITY CARE-UROLOGY Cons Reports Analyst's Choice [facility] Lab Results: +/- 30 days of the encounter This section includes the Chemistry and Hematology Lab Results on record with [place] for the patient. Radiology Reports and Pathology Reports are provided separately, in subsequent sections. Lab Results This section contains the Chemistry/Hematology Results that were resulted 30 days before or 30 daysafter the date of the Encounter. Date/Time Source Result Type Result - Unit Interpretation Reference Range Comment Jan 19, 2024 03:53 PM [facility] CBC AND DIFF (AUTO) Specimen Type: BLOOD Comment: ~For Test: CBC AND DIFF (AUTO) ~STAT ORDER Ordering Provider: SAM MEJÍA Report Released Date/Time: Jan 19, 2024 03:03 PM Reporting Lab: [facility] [address] [facility] [address] Performing Lab: [facility] [address] [facility] [address] WBC 7.46 10*3/uL 4.50-11.00 RBC 4.59 10*6/uL [...] 10*3/uL 0.00-0.00 Jan 19, 2024 02:43 PM [facility] PT & INR (PROTIME) Specimen Type: PLASMA No comment entered. Ordering Provider: SAM MEJÍA Report Released Date/Time: Jan 19, 2024 02:12 PM Reporting Lab: [address] [address] Performing Lab: [address] [address] INR 1.2 PROTIME 12.6 s 10.0-13.1 Jan 19, 2024 02:43 PM [facility] MICROSCOPIC AUTOMATED, URINE Specimen Type: URINE Comment: If Glucose = >500 and Ketones are positive, please alert the Physician. Ordering Provider: SAM MEJÍA Report Released Date/Time: Jan 19, 2024 02:11 PM Reporting Lab: [address] [address] Performing Lab: [address] [address] UA WBC TNTC /[HPF] 0-5 UA BACTERIA 3+ /[HPF] NoneObs UA RBC TNTC /[HPF] 0-3 UA WBC CLUMPS PRESENT /[HPF] None Jan 19, 2024 02:43 PM [facility] BASIC METABOLIC PANEL (non-fasting) Specimen Type: SERUM No comment entered. Ordering Provider: SAM MEJÍA Report Released Date/Time: Jan 19, 2024 02:12 PM Reporting Lab: [address] [address] Performing Lab: [address] [address] UREA NITROGEN 25 mg/dL 7-25 GLUCOSE 372 mg/dL H 65-100 SODIUM 141 mmol/L 135-145 POTASSIUM 4.9 mmol/L 3.5-5.0 CHLORIDE 105 mmol/L 100-110 CO2 22 meq/L 20-30 CREATININE, Serum 1.29 mg/dL 0.50-1.40 eGFR(CKD-EPI 2020) 57 mL/min L >60 Jan 19, 2024 02:43 PM [facility] Guang Lian Shi [facility] URINALYSIS CLEAN CATCH Specimen Type: URINE Comment: If Glucose = >500 and Ketones are positive, please alert the Physician. Ordering Provider: SAM MEJÍA Report Released Date/Time: Jan 19, 2024 02:11 PM Reporting Lab: [facility] [address] [facility] [address] Performing Lab: [address] [address] UA COLOR Brown Yellow UA APPEARANCE Ex.Turbid Clear UA GLUCOSE 1,000 mg/dL Negative UA KETONES NEGATIVE mg/dL Negative UA BLOOD LARGE mg/dL Negative UA PROTEIN 100 mg/dL Negative UA NITRITE NEGATIVE mg/dL Negative UA BILIRUBIN NEGATIVE mg/dL Negative UA SPECIFIC GRAVITY 1.028 H 1.016-1.022 UA pH 6.0 5.0-9.0 UA UROBILINOGEN Normal mg/dL <2.0 UA LEUKOCYTE LARGE Negative Social History: Smoking Status (Most current) and Tobacco Use (All prior to encounter date) This section includes the most current, and the historical, smoking and tobacco- related health factors from the [place] facility where the Encounter took place. Current Smoking Status This section includes the most current smoking, or tobacco-related health factor, from the [place] facility where the Encounter took place. Date/Time Current Smoking Status Comment [facility] Sep 22, 2023 09:30 AM [place]-TOBACCO QUIT 15 YRS OR MORE [facility] Tobacco Use History This section includes a history of the smoking, or tobacco-related health factors, that were collected on or before the date of the Encounter. The data comes from the [place] facility where the Encounter took place. Date/Time Smoking Status/Tobac co Use Comment Facility Sep 22, 2023 09:30 AM [place]-TOBACCO QUIT 15 YRS OR MORE [facility] Apr 03, 2022 03:00 PM [place]-TOBACCO FORMER USER [facility] [place] [facility] Apr 03, 2022 03:00 PM VA-TOBACCO QUIT 15 YRS OR MORE [facility] [place] [facility] Apr 04, 2021 03:30 PM VA-TOBACCO FORMER USER [facility] [place] [facility] Apr 04, 2021 03:30 PM VA-TOBACCO QUIT 15 YRS OR MORE [facility] [place] [facility] Dec 09, 2019 01:00 PM VA-TOBACCO FORMER USER [facility] [place] [facility] Dec 09, 2019 01:00 PM VA-TOBACCO QUIT 15 YRS OR MORE [facility] [place] [facility] Dec 01, 2018 01:48 PM VA-TOBACCO FORMER USER [facility] [place] [facility] Dec 01, 2018 01:48 PM VA-TOBACCO QUIT 15 YRS OR MORE [place] [facility] [place] [facility] Jan 21, 2018 03:37 PM VA-TOBACCO FORMER USER [facility] [place] [facility] Jan 21, 2018 03:37 PM VA-TOBACCO QUIT 15 YRS OR MORE [facility] [place] [facility] Jan 19, 2017 01:56 PM QUIT TOBACCO USE > 7 YEARS AGO quit 40 myears ago [facility] [place] [facility] Nov 30, 2015 01:04 PM QUIT TOBACCO USE > 7 YEARS AGO quit in 1979 [place] [facility] [place] [facility] July 09, 2001 08:11 AM QUIT TOBACCO USE > 7 YEARS AGO quit [facility] Pathology Reports: +/- 30 days of the [...] the Encounter. The data comes from all [place] treatment facilities. Date/Time Pathology Report Provider Source Jan 19, 2024 02:43 PM LR MICROBIOLOGY RE PORT: Reporting Lab: [place] [facility] [place] [facility] [CLIA# [id number]] [address] [place] [id number] Accession [UID]: [id number] [[id number]] Received: Jan 20, 2024@13:15 Collection sample: URINE CLEAN CATCH Collection date: Jan 19, 2024 14:43 Site/Specimen: URINE Provider: SAM MEJÍA Comment on specimen: POSITIVE CULTURE RESULTS MAY NOT REPRESENT CLINICAL INFECTION. CONSIDER NEED FOR ANTIBIOTICS IN THE CONTEXT OF UTI SYMPTOMS. Test(s) ordered: [facility]URE([facility]......... completed: Jan 25, 2024 10:45 * BACTERIOLOGY FINAL REPORT => Jan 25, 2024 10:45 TECH CODE: [id number] CULTURE RESULTS: ESCHERICHIA COLI - Quantity: >100,000 [...] --=--=--=--=--=--=--=--=-- Performing Laboratory: Bacteriology Report Performed By: [facility] [CLIA# [id number]] [address] [place] [address] BESSLISA HERNANDEZ [place] [facility] Encounter Notes: All associated encounter notes This section contains the clinical notes associated to the Encounter. Date/Time Encounter Note(s) Provider Source Jan 11, 2024 03:37 PM OPTOMETRY NOTE: LOCAL TITLE: OPTOMETRY NOTE STANDARD TITLE: OPTOMETRY NOTE DATE OF NOTE: JAN 11, 2024@15:37 ENTRY DATE: JAN 11, 2024@15:37:14 AUTHOR: ARRON PRADO EXP COSIGNER: URGENCY: STATUS: COMPLETED 73 WHITE MALE NOT OR Last eye exam: 01/06/23 Reason for Visit/CC: patient here for a comprehensive eye exam. He sees well - doesn't need distance glasses OHx: Type II DM without retinopathy OU pseudophakia OU ERM OS dry eye OU (-) Pain: (-) PHILLIPS: (-) Diplopia: (-) Flashes: (-) Floaters: (-) Amaurosis Fugax/Tia's: (-) Eye Injury: (+) Eye Surgery: CE OU. 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 ([facility] [id number]) E11.8 Type 2 diabetes mellitus ([facility] [id number]) R91.1 Solitary nodule of lung ([facility] [id number]) I65.29 Carotid artery stenosis ([facility] 23672427) Z77.29 Exposure to potentially hazardous substance ([facility] [id number]) Z59.41 Food insecurity ([facility] 640566048) E11.22 Chronic kidney disease stage 1 due to type 2 diabetes mellitus ([facility] [id number]) E11.42 Peripheral neuropathy due to type 2 diabetes mellitus ([facility] [id number]) R01.1 Heart murmur ([facility] 89782254) K76.0 Fatty liver ([facility] 744905598) I73.9 Peripheral vascular disease ([facility] 745576723) K63.5 Polyp Colon ([facility] 28523084) F33.0 Depression ([facility] 38166141) R69. Gynecomastia ([facility] 4047292) R69. Hiatal hernia ([facility] 07022505) F41.9 Anxiety ([facility] 23599094) R69. Osteoarthritis of knee ([facility] 519573199) E78.5 Hyperlipidemia ([facility] 58261388) 070.51 Hepatitis C (ICD-9-CM 070.51) Other: SYSTEMIC MEDICATIONS/OCULAR MEDICATIONS: Active and Recently Outpatient Medications (excluding Supplies): Active Outpatient Medications Status 1) ATORVASTATIN CALCIUM 80MG TAB TAKE ONE TABLET BY ACTIVE MOUTH ONCE DAILY FOR CHOLESTEROL DOSE CHANGE 2) EZETIMIBE 10MG TAB TAKE ONE TABLET BY MOUTH ONCE ACTIVE DAILY TO LOWER CHOLESTEROL 3) INSULIN,ASPART(EQV-NOVLG)100UN/ ML FLXPEN INJECT 22 HOLD UNITS SUBCUTANEOUSLY THREE TIMES A DAY BEFORE MEALS FOR DIABETES 4) INSULIN,GLARGINE-YFGN 100UNIT/ML PEN 3ML INJECT ACTIVE DIRECTED SUBCUTANEOUSLY ONCE DAILY START AT 40 UNITS PER DAY. IF BLOOD SUGAR REMAINS ELEVATED, MAY INCREASE TO 45 UNITS PER DAY. IF STILL ELEVATED, YOU MAY INCREASE TO 50 UNITS PER DAY 5) KETOCONAZOLE 2% CREAM APPLY A SMALL AMOUNT TOPICALLY ACTIVE TWICE DAILY FUNGAL INFECTION 6) MUPIROCIN 2% OINT APPLY THIN LAYER TOPICALLY TWICE ACTIVE DAILY FOR SKIN INFECTION 7) PREGABALIN 200MG ORAL CAP TAKE ONE CAPSULE BY MOUTH ACTIVE TWICE DAILY FOR PAIN Inactive Outpatient Medications Status 1) CARBOXYMETHYLCELLULOSE NA 0.5% OPH SOLN INSTILL 1 DROP INTO EACH EYE FOUR TIMES DAILY NEEDED FOR DRY EYE Active Non-VA Medications Status 1) Non-VA ALPHA [...] TABLETS BY ACTIVE MOUTH ONE TIME NEEDED 14 Total Medications ALLERGIES: ERYTHROMYCIN, METFORMIN, EMPAGLIFLOZIN LAST BP: 118/76 (11/05/2023 15:03) PERTINENT LABS: HEMOGLOBIN A1C; BLOOD Kelvin. Date: 10/30/23 10:08 07/20/23 12:21 Test Name Result Units Range HEMOGLOBIN A1C 10.7 H 11.4 H % 4.0 - 5.6 +++++++++++++++++++++++++++++++ +++++++++++++++++++++++++++++++ +++++++++++++++++ Patient history, visual acuity, entrance testing, refraction and tonometry all performed now by cotton program technician and reviewed by attending provider. Dilation drops instilled by cotton program technician after angle assessment and dilation warning given with verbal consent obtained. +++++++++++++++++++++++++++++++ +++++++++++++++++++++++++++++++ +++++++++++++++++ SLE: Lids/Lashes: clear OU Conjunctiva: pinguecula OU Corneas: clear OU Iris: flat and clear OU (-)NVI OU Anterior Chamber: deep and quiet OU Angles: open OU Lens: PCIOL OU DFE: Vitreous: Syneresis OU, PVD OU C/D (Size and Rim Description) OD 0.40 pink & healthy OS 0.40 pink & healthy (-)NVD OU Macula OD flat, mild diffuse ERM OS flat, mild diffuse ERM centrally and superior (-)CSME OU A/V: normal caliber OU Posterior Pole: clear OU Periphery: Flat and intact (-)NVE, holes, tears, detachments 360 OU operculated hole temporal OS, slight cuff of edema hypopigmented area superior temp OS Assessment/Plan: 1. Operculated retinal hole temporally OS - not pigmented or previously noted, pt asymptomatic for new flashes/floaters (PVD OU noted since 2017). Pt ed on finding. Retina consult entered 2. Type II diabetes without retinopathy or macular edema OU. Last A1c 10.7. Pt ed on findings and importance of good blood glucose control. Monitor annually 3. Pseudophakia OU - stable, monitor 4. Epiretinal membrane OU, not visually significant. Monitor 5. regular astigmatism OU - happy with current glasses RTC 1 year or earlier PRN Patient Education: Diabetes: Patient was educated regarding diabetes and related ocular complications including retinopathy and cataract formation as well as other related systemic complications. The importance of good blood sugar control, blood sugar testing as recommended by their PCP and the importance of timely follow up were all emphasized. patient offered and declined printed medication list Medication Reconciliation: Outpatient: Has the patient been taking medications as documented in the EMLR? YES: The patient has been taking medications as documented in the EMLR. Essential Medication List for Review used to complete this medication reconciliation. INCLUDED IN THIS LIST: Alphabetical list of active outpatient prescriptions dispensed from this [place] (local) and dispensed from another [place] or [facility] facility (remote) as well as inpatient orders [...] next appointment, whether with a [place] or non-[place] provider. JLV Link Data on this list may not be complete. Please check [employer]. Allergies/ADRs (Tool #5) FACILITY ALLERGY/ADR -------- No Remote Allergy/ADR Data available for this patient [place] [facility] [place] [facility] [place] [facility]THROMYCIN [facility] [place] [facility] METFORMIN Med Recon NoGlossary (Tool #1) INCLUDED IN THIS LIST: Alphabetical list of active outpatient prescriptions dispensed from this [place] (local) and dispensed from another [place] or [facility] facility (remote) as well as inpatient orders (local pending and active), local clinic medications, locally documented non-VA medications, and local prescriptions that have or been discontinued in the past 90 days. Non-VA Meds Last Documented On: Oct 17, 2020 NOTE The display of VA prescriptions dispensed from another [place] or [facility] facility (remote) is limited to active outpatient prescription entries matched to National Drug File at the originating site and may not include some items such as investigational drugs, compounds, etc. NOT INCLUDED IN THIS LIST: Medications self-entered by the patient into personal health records (i.e. [employer]) are NOT included in this list. Non-VA medications documented outside this [place], remote inpatient orders (regardless of status) and remote clinic medications are NOT included in this list. The patient and provider must always discuss medications the patient is taking, regardless of where the medication was dispensed or obtained. OUTPT ACETAMINOPHEN 325MG TAB (Status = ) TAKE TWO TABLETS BY MOUTH EVERY 6 HOURS NEEDED Rx# [id number] Last Released: 09/22/23 Qty/Days Supply: Rx Expiration Date: 10/22/23 Refills Remainin Indication: FOR PAIN Non-VA ALPHA LIPOIC ACID CAP/TAB TAKE 200 MG BY MOUTH TWICE DAILY Non-VA ASPIRIN 81MG EC TAB TAKE ONE TABLET BY MOUTH ONCE DAILY OUTPT ATORVASTATIN CALCIUM 80MG TAB (Status = Active) TAKE ONE TABLET BY MOUTH ONCE DAILY FOR CHOLESTEROL DOSE CHANGE Rx# [id number] Last Released: 09/07/23 Qty/Days Supply: Rx Expiration Date: 09/07/24 Refills Remainin OUTPT CARBOXYMETHYLCELLULOSE NA 0.5% OPH SOLN (Status = ) INSTILL 1 DROP INTO EACH EYE FOUR TIMES DAILY NEEDED FOR DRY EYE Rx# [id number] Last Released: 02/12/23 Qty/Days Supply: Rx Expiration Date: 01/07/24 Refills Remainin Indication: FOR DRY EYE Non-VA DESVENLAFAXINE(EQV-PRISTIQ)100M G SA TAB TAKE ONE TABLET BY MOUTH ONCE DAILY Non-VA medication not recommended by VA provider. Patient wants to buy from Non-VA pharmacy. Medication prescribed by Non-VA provider. ordered by Dr Mcneal, [facility] provider Non-VA DICLOFENAC NA 75MG EC TAB TAKE ONE TABLET BY MOUTH TWICE DAILY NEEDED Non-VA DOXEPIN HCL 75MG CAP TAKE 1 CAPSULE BY MOUTH AT BEDTIME Non-VA medication not recommended by VA provider. Patient wants to buy from Non-VA pharmacy. Medication prescribed by Non-VA provider. Ordered by Dr Mcneal, [facility] provider OUTPT EZETIMIBE 10MG TAB (Status = Active) TAKE ONE TABLET BY MOUTH ONCE DAILY TO LOWER CHOLESTEROL Rx# [id number] Last Released: 12/16/23 Qt Supply: Rx Expiration Date: 01/29/24 Refills Remainin Indication: FOR HIGH CHOLESTEROL OUTPT GLUCAGON 1MG/BECKY INJ EMERGENCY KIT (Status = ) INJECT 1 INJECTION INTRAMUSCULARLY ONE TIME NEEDED FOR LOW BLOOD SUGAR Rx# [id number] Last Released: 11/05/23 Qty Supply: 04/07 Rx Expiration Date: 12/05/23 Refills Remainin Indication: FOR LOW BLOOD SUGAR Non-VA GLUCOSE CHEW TAB TAB,CHEWABLE CHEW FOUR TABLETS BY MOUTH ONE TIME NEEDED low blood sugar 4 gm tablet OUTPT INSULIN,ASPART(EQV-NOVLG)100UN/ ML FLXPEN (Status = On Hold) INJECT 22 UNITS SUBCUTANEOUSLY THREE TIMES A DAY BEFORE MEALS FOR DIABETES Rx# [id number] Last Released: Supply: Rx Expiration Date: 11/04/24 Refills Remainin Indication: FOR DIABETES OUTPT INSULIN,GLARGINE-YFGN 100UNIT/ML PEN 3ML (Status = Discontinued) INJECT 28 UNITS SUBCUTANEOUSLY ONCE DAILY FOR DIABETES INCREASE BY ONE UNIT A DAY UNTIL MORNING BLOOD GLUCOSE LESS THAN 130 OR TO A MAXIMUM OF 50 UNITS DAILY Rx# [id number] Last Released: 08/10/23 Qty/Days Supply: Rx Expiration Date: 11/04/23 Refills Remainin Indication: FOR DIABETES OUTPT INSULIN,GLARGINE-YFGN 100UNIT/ML PEN 3ML (Status = Discontinued) INJECT 30 UNITS SUBCUTANEOUSLY ONCE DAILY INCREASE BY ONE UNIT A DAY UNTIL MORNING BLOOD GLUCOSE LESS THAN 130 OR TO A MAXIMUM OF 50 UNITS DAILY Rx# [id number] Last Released: Qt Supply: Rx Expiration Date: 01/24/24 Refills Remainin Indication: FOR DIABETES OUTPT INSULIN,GLARGINE-YFGN 100UNIT/ML PEN 3ML (Status = Active) INJECT DIRECTED SUBCUTANEOUSLY ONCE DAILY START AT 40 UNITS PER DAY. IF BLOOD SUGAR REMAINS ELEVATED, MAY INCREASE TO 45 UNITS PER DAY. IF STILL ELEVATED, YOU MAY INCREASE TO 50 UNITS PER DAY Rx# [id number] Last Released: 11/10/23 Qty/Days Supply: Rx Expiration Date: 02/03/24 Refills Remainin Indication: FOR DIABETES OUTPT KETOCONAZOLE 2% CREAM (Status = Active) APPLY A SMALL AMOUNT TOPICALLY TWICE DAILY FUNGAL INFECTION Rx# [id number] Last Released: 06/25/23 Qty/Days Supply: Rx Expiration Date: 06/22/24 Refills Remainin Indication: FUNGAL INFECTION OUTPT MUPIROCIN 2% OINT (Status = Active) APPLY THIN LAYER TOPICALLY TWICE DAILY FOR SKIN INFECTION Rx# [id number] Last Released: 04/08/23 Qty/Days Supply: Rx Expiration Date: 04/02/24 Refills Remainin Indication: FOR SKIN INFECTION OUTPT PREGABALIN 200MG ORAL CAP (Status = Discontinued) TAKE ONE CAPSULE BY MOUTH TWICE DAILY FOR PAIN Rx# [id number] Last Released: 10/06/23 Qty/Days Supply: Rx Expiration Date: 03/09/24 Refills Remainin Indication: FOR DIABETIC NEUROPATHY OUTPT PREGABALIN 200MG ORAL CAP (Status = Active) TAKE ONE CAPSULE BY MOUTH TWICE DAILY FOR PAIN Rx# [id number] Last Released: 12/16/23 Qty/Days Supply: Rx Expiration Date: 05/07/24 Refills Remainin Indication: FOR DIABETIC NEUROPATHY SUPPLIES OUTPT GLUCOSE SENSOR DEXCOM G7 (Status = Active) USE 1 SENSOR DIRECTED EVERY 10 DAYS Rx# [id number] Last Released: 08/18/23 Qty/Days Supply: 06/05 Rx Expiration Date: 06/26/24 Refills Remainin OUTPT LANCET,SOFTCLIX (Status = Active) USE 1 LANCET DIRECTED THREE TIMES A DAY TO TEST BLOOD SUGAR Rx# [id number] Last Released: 02/03/23 Qty/Days Supply: 300/90 Rx Expiration Date: 01/29/24 Refills Remainin OUTPT SKIN BARRIER WIPE TORBOT SKIN TAC (Status = Active) USE 1 WIPE TOPICALLY EVERY 10 DAYS TO HELP SENSOR TO ADHERE BETTER Rx# [id number] Last Released: 11/11/23 Qty/Days Supply: 50/ Rx Expiration Date: 11/04/24 Refills Remainin Indication: TO HELP SENSOR TO ADHERE BETTER OUTPT TRANSPARENT DRESSING 4IN X 4 3/4IN (Status = Active) APPLY 1 DRESSING TOPICALLY EVERY 10 DAYS TYPE 2 DIABETES FOR CGM/SENSOR Rx# [id number] Last Released: 11/06/23 Qty/Days Supply: Rx Expiration Date: 11/04/24 Refills Remainin Indication: TYPE 2 DIABETES /es/ ARRON PRADO OD Utilization Coordinator Signed: 01/11/2024 16:22 ARRON PRADO [place] [facility] [place] [facility] Jan 11, 2024 08:47 AM OPTOMETRY HOG OPERATOR NOTE: LOCAL TITLE: OPTOMETRY HOG OPERATOR NOTE STANDARD TITLE: OPTOMETRY HOG OPERATOR NOTE DATE OF NOTE: JAN 11, 2024@08:47 ENTRY DATE: JAN 11, 2024@08:47:47 AUTHOR: HORACIO KINNEY EXP COSIGNER: URGENCY: STATUS: COMPLETED Active problems - Computerized Problem List is [...] Peripheral vascular disease 13. Polyp Colon (SCT [id number]) 14. Depression 15. Gynecomastia 16. Hiatal hernia 17. Anxiety 18. Osteoarthritis of knee 19. Hyperlipidemia (SNOMED CT 03249846) 20. Hypertension (SNOMED CT 23046321) 21. Obesity (SNOMED CT 423590283) 22. Hyperlipidemia (SNOMED CT 91862359) 23. Hepatitis C Active Outpatient Medications (including Supplies): Active Outpatient Medications Status 1) ATORVASTATIN CALCIUM 80MG TAB TAKE ONE TABLET BY ACTIVE MOUTH ONCE DAILY FOR CHOLESTEROL DOSE CHANGE 2) EZETIMIBE 10MG TAB TAKE ONE TABLET BY MOUTH ONCE ACTIVE DAILY TO LOWER CHOLESTEROL 3) GLUCOSE SENSOR DEXCOM G7 USE 1 SENSOR DIRECTED ACTIVE EVERY 10 DAYS 4) INSULIN,ASPART(EQV-NOVLG)100UN/ ML FLXPEN INJECT 22 HOLD UNITS SUBCUTANEOUSLY THREE TIMES A DAY BEFORE MEALS FOR DIABETES 5) INSULIN,GLARGINE-YFGN 100UNIT/ML PEN 3ML INJECT ACTIVE DIRECTED SUBCUTANEOUSLY ONCE DAILY START AT 40 UNITS PER DAY. IF BLOOD SUGAR REMAINS ELEVATED, MAY INCREASE TO 45 UNITS PER DAY. IF STILL ELEVATED, YOU MAY INCREASE TO 50 UNITS PER DAY 6) KETOCONAZOLE 2% CREAM APPLY A SMALL AMOUNT TOPICALLY ACTIVE TWICE DAILY FUNGAL INFECTION 7) LANCET,SOFTCLIX USE 1 LANCET DIRECTED THREE TIMES ACTIVE A DAY TO TEST BLOOD SUGAR 8) MUPIROCIN 2% OINT APPLY THIN LAYER TOPICALLY TWICE ACTIVE DAILY FOR SKIN INFECTION 9) PREGABALIN 200MG ORAL CAP TAKE ONE CAPSULE BY MOUTH ACTIVE TWICE DAILY FOR PAIN 10) SKIN BARRIER WIPE TORBOT SKIN TAC USE 1 WIPE ACTIVE TOPICALLY EVERY 10 DAYS TO HELP SENSOR TO ADHERE BETTER 11) TRANSPARENT DRESSING 4IN X 4 3/4IN APPLY 1 DRESSING ACTIVE TOPICALLY EVERY 10 DAYS TYPE 2 DIABETES FOR CGM/SENSOR Active Non-VA Medications Status 1) Non-VA ALPHA [...] TABLETS BY ACTIVE MOUTH ONE TIME NEEDED 17 Total Medications Allergies: ERYTHROMYCIN, METFORMIN, EMPAGLIFLOZIN All medications including those prescribed by outside VA's, community providers, and all OTC meds were reviewed and reconciled with patient to the best of their abilities. This 73 year old MALE is seen today for a CEE/ DFE for diabetic. Medical, eye, personal, and social history are all reviewed and is contributory or is not contributory to today's visit. Optometry Computer Numerical Control Grinder Attending Provider Note: Date of Last Exam:01/06/2023 Location: [facility] Patient is [place], without hearing aids today. Chief Complaint:My eyes are OK. No changes. I dont use distance glasses. And I only need a good light to read with. HISTORY AND REVIEW OF SYSTEMS: OHx: 1. Pseudophakia OU 2. ERM OU (OS > OD) 3. 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 Refractive error and presbyopia OU 5. PVD OU (-) Pain: (-) PHILLIPS: (+) Diplopia: April 2022 Not since (-) Flashes: (+) Floaters:OU but fewer now. (-) Amaurosis Fugax/Tia's: (-) Eye Injury: (+) Eye Surgery: Cataract extraction with PCIOL and Yag laser OU (-) TBI (+) vertigo - April 2022 DIABEIC: Yes LAST A1C:10.7 down from 11.4 in July PERTINENT LABS: HEMOGLOBIN A1C TREND Collection DT Spec HGBA1c 10/30/2023 10:08 BLOOD 10.7 H 07/20/2023 12:21 BLOOD 11.4 H 05/06/2023 15:55 BLOOD 9.4 H 01/14/2023 13:27 BLOOD 9.5 H 10/13/2022 08:46 BLOOD 8.2 H NEW ALLERGIES TO REPORT: No EYE MEDICATION(S): ATs (need refills) CURRENT RX WITH BCVA: Subjective Refraction: BCVA:12/2022 OD: pl -1.25 x105 20/20 OS: +0.75 -1.00 x075 20/25 Add:+2.25 20/25 DVA: ( )SC ( )CC (x)Phoropter ( )CL OD: 20/25-2 OS: 20/20-1 NVA OU: 20/ MANIFEST REFRACTION(MRx): OD:+0.25 -1.25 x 109 20/20-1 OS:no change 20/20-1 ADD:+2.25 OU 20/20 CVF: Appear FTFC OU EOMS: Appear Full OU PUPILS: Appear ERRL(-)APD NO NVI seen OU INTRAOCULAR PRESSURE (IOP) METHOD: Goldmann Time:3:50 OD:16 OS:16 ANTERIOR CHAMBER (AC): Penlight or slit lamp (if available) exam appears unremarkable. Pupils are dilated. Dilation and driving precautions reviewed with patient and patient expresses understanding. Medication: 1% Tropicamide, 2.5% Phenylephrine OU Time:3:50 Visual Imaging Performed Today:none Additional Comments: /joanna/ HORACIO KINNEY OPTOMETRY TECH Signed: 01/11/2024 15:54 HORACIO KINNEY [facility]
--- OUTSIDE RECORDS SUMMARY | 2024-04-22 16:15 | XMS_ITS ---
Author Name [facility] Organization [facility] Address [address] [place] [address] Care Team Providers Care Elevator Mechanic Name Role Phone BUNNY FOX Primary Care [...] PART B Dec 07, 2014 PART B [id number] MECCA CHU PATIENT MEDICARE (WNR) MEDICARE (M) PART A Jan 07, 2013 PART A [id number] MECCA CHU [place] PATIENT Selected Encounter This section includes the information on record at [place] for the Encounter. Date/Time Encounter Type Encounter Description Reason Provider Source Jun 22, 2023 01:00 PM DIAB MANAGE TRN PER IND DIABETES CLINIC ICD-10-CM E11.8 Type 2 diabetes mellitus with unspecified complications MAXINE PONCE Olivia Encounter Template Text not used by [place] Assessments - Encounter Diagnoses This section includes the primary and secondary diagnoses documented for the Encounter. Date/Time Primary/Secondary Diagnosis Diagnosis Name Provider Source Jun 22, 2023 04:03 PM PRIMARY Type 2 diabetes mellitus with unspecified complications MAXINE PONCE [facility] [place] [facility] Plan of Treatment: Future Appointments (+ 6 months) and Future Tests (+/- 45 days) The Plan of Treatment section includes future care activities for the patient from all [facility]. This section includes future appointments and future orders which are active, pending or scheduled. Future Appointments This section includes appointments that were scheduled to occur 6 months from the date of the Encounter, up to a maximum of 20 appointments. The data comes from all [place] treatment facilities. Appointment Date/Time Appointment Type Appointme nt Facility Name Jul 02, 2023 02:00 PM [facility]ULATORY [facility]ICINE [facility] [place] [facility] July 10, 2023 09:30 AM AMBULATORY - MEDICINE [facility] [place] [facility] August 06, 2023 11:00 AM AMBULATORY - MEDICINE [facility] [place] [facility] August 06, 2023 11:30 AM [facility]ATORY [facility] MEDICINE [facility] [place] [facility] Aug 24, 2023 01:00 PM AM[facility]ULATORY - [facility]ICINE [facility] [place] [facility] Sep 07, 2023 03:30 PM AM[facility]ULATORY - MEDICINE [place] [facility] [place] [facility] Sep 21, 2023 02:00 PM AMBULATORY - MEDICINE [facility] [place] [facility] Sep 22, 2023 09:30 AM AMBULATORY - MEDICINE [facility] [place] [facility] Oct 06, 2023 01:00 PM AMBULATORY - MEDICINE [facility] [place] [facility] Nov 03, 2023 02:00 PM AMBULATORY - MEDICINE [facility] [place] [facility] Nov 03, 2023 03:15 PM AMBULATORY - NONE [facility] [place] [facility] Nov 05, 2023 03:00 PM AMBULATORY - MEDICINE [facility] [place] [facility] Nov 30, 2023 11:30 AM AMBULATORY - NONE [facility] [place] [facility] Lab Results: +/- 30 days of the encounter This section includes the Chemistry and Hematology Lab Results on record with [facility] for the patient. Radiology Reports and Pathology Reports are provided separately, in subsequent sections. Lab Results This section contains the Chemistry/Hematology Results that were resulted 30 days before or 30 daysafter the date of the Encounter. Date/Time Source Result Type Result - Unit Interpretation Reference Range Comment July 20, 2023 12:21 PM [facility] HEMOGLOBIN A1C PANEL Specimen Type: BLOOD [...] Apr 06, 2023 07:48 PM Reporting Lab: [facility] [address] [facility] [address] Performing Lab: [address] [address] HEMOGLOBIN A1C 11.4 H 4.0-5.6 July 20, 2023 12:21 PM [facility] BASIC METABOLIC PANEL (fasting) Specimen Type: SERUM No comment entered. Ordering Provider: JAYE GUILLERMO Report Released Date/Time: Apr 06, 2023 07:48 PM Reporting Lab: [facility] [address] [facility] [address] Performing Lab: [facility] [address] [facility] [address] UREA NITROGEN 21 mg/dL 7-25 GLUCOSE 339 mg/dL H 65-100 SODIUM 137 mmol/L 135-145 POTASSIUM 4.7 mmol/L 3.5-5.0 CHLORIDE 102 mmol/L 100-110 CO2 25 meq/L 20-30 CREATININE, Serum 1.20 mg/dL 0.50-1.40 eGFR(CKD-EPI 2020) 63 mL/min >60 July 20, 2023 12:21 PM [facility] LIPID PANEL FASTING Specimen Type: SERUM No comment entered. Ordering Provider: JAYE GUILLERMO Report Released Date/Time: Apr 06, 2023 07:48 PM Reporting Lab: [facility] [address] [facility] [address] Performing Lab: [address] [address] CHOLESTEROL 131 mg/dL TRIGLYCERIDE 122 mg/dL 0-150 LDL calculated 67 mg/dL 0-129 CHOL/HDL 3.3 HDL CHOLESTEROL 40 mg/dL 40-60 July 20, 2023 12:21 PM [facility] [place] [facility] MICROALBUMIN CREATININE RATIO PANEL Specimen Type: URINE No comment entered. Ordering Provider: JAYE GUILLERMO Report Released Date/Time: Apr 06, 2023 07:48 PM Reporting Lab: [facility] [address] [facility] [address] Performing Lab: [facility] [address] [facility] [address] MICROALBUMIN/C REATININE RATIO 105.8 mg/g H 0-29.9 MICROALBUMIN,Q UANTITATIVE 6.7 mg/dL RR UNAVAIL CREATININE URINE 63.31 mg/dL Social History: Smoking Status (Most current) and Tobacco Use (All prior to encounter date) This section includes the most current, and the historical, smoking and tobacco- related health factors from the [place] facility where the Encounter took place. Current Smoking Status This section includes the most current smoking, or tobacco-related health factor, from the [place] facility where the Encounter took place. Date/Time Current Smoking Status Comment [facility] Apr 03, 2022 03:00 PM [facility] Tobacco Use History This section includes a history of the smoking, or tobacco-related health factors, that were collected on or before the date of the Encounter. The data comes from the [place] facility where the Encounter took place. Date/Time Smoking Status/Tobac co Use Comment Facility Apr 03, 2022 03:00 PM VA-TOBACCO QUIT 15 YRS OR MORE [place] [facility] [place] [facility] Apr 04, 2021 03:30 PM VA-TOBACCO FORMER USER [place] [facility] [place] [facility] Apr 04, 2021 03:30 PM VA-TOBACCO QUIT 15 YRS OR MORE [facility] [place] [facility] Dec 09, 2019 01:00 PM VA-TOBACCO FORMER USER [place] [facility] [place] [facility] Dec 09, 2019 01:00 PM VA-TOBACCO QUIT 15 YRS OR MORE [place] [facility] [place] [facility] Dec 01, 2018 01:48 PM VA-TOBACCO FORMER USER [facility] [place] [facility] Dec 01, 2018 01:48 PM VA-TOBACCO QUIT 15 YRS OR MORE [facility] [place] [facility] Jan 21, 2018 03:37 PM VA-TOBACCO FORMER USER [facility] [place] [facility] Jan 21, 2018 03:37 PM VA-TOBACCO QUIT 15 YRS OR MORE [facility] [place] [facility] Jan 19, 2017 01:56 PM QUIT TOBACCO USE > 7 YEARS AGO quit 40 myears ago [facility] [place] [facility] Nov 30, 2015 01:04 PM QUIT TOBACCO USE > 7 YEARS AGO quit in 1979 [facility] [place] [facility] July 09, 2001 08:11 AM QUIT TOBACCO USE > 7 YEARS AGO quit 1979 [facility] Encounter Notes: All associated encounter notes This section contains the clinical notes associated to the Encounter. Date/Time Encounter Note(s) Provider Source Jun 22, 2023 01:16 PM DIABETOLOGY CONSULT: LOCAL TITLE: CONSULT REPORT/DIABETES EDU STANDARD TITLE: DIABETOLOGY CONSULT DATE OF NOTE: JUN 22, 2023@13:16 ENTRY DATE: JUN 22, 2023@13:16:52 AUTHOR: BRE PONCE: URGENCY: STATUS: COMPLETED DIABETES EDUCATION DOCUMENTATION DIABETES SELF-MANAGEMENT PROGRAM Intake Assessment Demographics: Patient Name: FABIOLA STEVENSON Age: 73 Sex: MALE Race: WHITE MARITAL STATUS - Introduction: [place] identified with 2 identifiers: [X] Full Name [X] Date of [ ] Address [ ] [facility] ID Card PATIENT PHONE - PHONE NUMBER [CELLULAR] - Is patient phone number correct, if not, enter below: [place]'s phone number: FABIOLA STEVENSON [address], [place], [address] REASON FOR EDUCATION VISIT TODAY: Diagnosed many years ago with Type 2 diabetes, not sure when he was diagnosed. Last seen by Endocrine in March. Here to learn more about sensor technology. Reports he is checking his glucose more, however, he did not bring his meter for us to download today. MOST RECENT LABS: HEMOGLOBIN A1C TREND Collection [...] Dr. Guillermo Living arrangements: X Spouse- , Anabella Possible barriers to learning: X None- admits [...] foot. CARDIOVASCULAR/CEREBROVASCU LAR: Comments: OTHER MEDICAL CONCERNS: Dr. Guillermo came in to examine [place]'s private area because reported the tip of his penis was red and he had skin break down in his groin area (which was not noted on exam). was encouraged to stop taking the Empagliflozin 25 mg, 1/2 tab once a day. Diabetes related illnesses or hospitalizations in the past year: He reports he tried going to [facility] clinic at the [place] to discuss his private area, however, he was a few minutes late and was turned away from being seen. Comments: Diabetes Distress Support: On a scale [...] Frequency: Duration: Level: Limitations: DIABETES MEDICATIONS: Glargine- 15 units once a day, in the morning Aspart- 20 units before meals, 2x/day. Empagliflozin 25 mg, 1/2 tab (does notice some skin break down in his perineal area, had an appt with PCP at [place] and was not seen because he had been a few minutes late for the appt. Tip of penis is really red and that has been going on for a few weeks, he reports. STORAGE OF INSULIN/OTHER INJECTABLES: INJECTIONS SITES: SITES VIEWED: ANY EVIDENCE OF LIPOHYPERTROPHY History of hypoglycemia: No low glucose in the last month Symptoms: weak, can't navigate very well. Frequency: Typical treatment: orange juice or soda Medic ID: does not have one, interested Driving instructions: Has Glucagon kit: Monitoring: Checking glucose every other day or every day. Encouraged to start checking glucose 4x/day, before meals and at bedtime. SMBG/ What are your BG targets? Fastin-130 mg/dl; 2 hours after meals: 140-180 mg/dl Sensor Glucose/What are your SG TIR targets? 70% What is your A1c target? 7.0% Learning limitations/special education needs: None Cultural influences: None Health beliefs/attitudes/feelings about diabetes: None Will significant other participate in program? No Prior diabetes education: ASSESSMENT: Kindly referred by Dr. Guillermo. Joy was last seen by Endocrine in March. Joy is here to learn more about sensor technology. Joy is currently checking once 1-2x/day, however, he did not bring his meter for us to download. He reports that his glucose have been elevated recently. He reports that his doses of insulin have dropped recently, however, this is causing his blood sugars to run higher and he reports the glucose are in the 300s. Joy could not remember the time of day, therefore, we made small general changes with his insulin and encouraged he call to discuss sooner if he started having any low glucose. Joy was encouraged to consider the Dexcom G7 sensor because Joy admits that when he wore the PlaySquareyle Bear pro sensor, it did not say on his arm for very long. It lasted the longest for 7 days. Joy would benefit from the Dexcom G7 sensor because it can be changed every 10 days, he is taking insulin 3-4x/day and checking his glucose 2x/day, however, he is willing to start checking more. We made small changes to his insulin by 2 units only and the instructions are listed below with dosage changes. Jyo was encouraged to stop taking the Empagliflozin 25 mg, 1/2 tab out of concern because Joy reports he had redness on his skin and at the tip of penis. Dr. Guillermo came into the office to examine him. He also reported skin breakdown in the groin area (however, upon exam with Dr. Guillermo, there was no skin break down in the private area observed). Joy will return in 1 month to learn how to use the Dexcom G7 sensor. Joy has an older cell phone (flip phone), therefore, he will also need a supervisor coin machine ordered for him. Education plan/goals/objectives: Assessment/Scale: 1= needs instruction; 2= needs review; 3= comprehends jordan points; 4= demonstrates understanding/competency; NC= Not covered; N/A= not applicable Topics Learning Objectives: Diabetes Pathophysiology (define diabetes and identify own type of diabetes; list 2 options for treating diabetes) Dates Covered & Assessment: 06/22/23; Healthy Eating (Describe effect of type, amount and timing of food on blood glucose; list 3 methods for planning meals) Dates Covered & Assessment: 06/22/23; Being Active (State effect of exercise on blood glucose levels) Dates Covered & Assessment: 06/22/23; Taking Medication (State effect of diabetes medicines on diabetes; name diabetes medication taking, action and side effects) Dates Covered & Assessment: 06/22/23; Monitoring Glucose (Identify recommended blood glucose targets and personal targets) Dates Covered & Assessment: 06/22/23; Acute Complications (List symptoms and treatment of hyper- and hypoglycemia, DKA, sick day guidelines and guidelines for severe weather or situation crisis and diabetes supply management) Dates Covered & Assessment: 06/22/23; Chronic Complications (Define the relationship of blood glucose levels to terminal makeup operator complications of diabetes and screening and preventative measures) Dates Covered & Assessment: 06/22/23; Lifestyle and Healthy Coping (Describe life style and healthy coping strategies to promote diabetes self-management) Dates Covered & Assessment: 06/22/23; Diabetes Distress and Support (Recognize diabetes Distress and be able to identify support options) Dates Covered & Assessment: 06/22/23; HEALTH GOAL #1: In order to meet this goal, I will: Stop taking the Empagliflozin to prevent further skin reaction in the join and private area. HEALTH GOAL #2: In order to meet this goal, I will: Clinical or Quality of Life outcome baseline: TEACHING MATERIALS GIVEN: Education: -Discussed side effects of Empagliflozin with [place] after he discussed his symptoms. -Benefits of sensor therapy. -Reviewed the two different sensors on the market. -Reviewed how often to check glucose and when to check them. -Reviewed options for a Medical Alert bracelet or necklace. INSTRUCTIONS GIVEN TO : -STOP Empagliflozin 25 mg, 1/2 tab once a day due to skin reaction. -Increase Glargine (Lantus) 17 units once a day. -Increase Aspart (Novolog) 22 units BEFORE meals, 3x/day (Breakfast, Lunch & Dinner). -Check glucose 4x/day: before Breakfast, before lunch, before Dinner and at bedtime. -We will order the Dexcom G7 sensor that you will change every 10 days. -Return 1 month to learn how to use it. We will have supplies to give you at this appointment. Patient/Family Verbalized Understanding FUTURE APPOINTMENTS: 07/02/2023 14:00 NHM/ENDOCRINE 07/10/2023 09:30 COM CARE-PODIATRY 01/11/2024 15:30 CWM/NO/OPTOMETRY/JOHAN DM type is : Type 2 diabetes Length of Visit: 60 minutes /joanna/ BRE PONCE, RN,BSN, [facility] DIABETES ELECTRIC MULE OPERATOR, RN Signed: 06/22/2023 14:48 Receipt Acknowledged By: 07/07/2023 14:56 /es/ JAYE GUILLERMO MD STAFF PHYSICIAN 06/22/2023 15:51 /es/ SAM MENESES, MS,PA-C PHYSICIAN CLOTHES IRONER for BRE STEPHENS [facility]
--- OUTSIDE RECORDS SUMMARY | 2024-04-22 16:15 | XMS_ITS ---
Author Organization [facility] Address [address] [place] [id number] Care Team Providers Care Flame Degreaser Name Role Phone Ramses Motley N.P Primary Care Provider Unav Jorge Diaz Unavailable [phone] Encounters Encounter Location Date Provider Diagnosis [facility] [address] [place] [address] 10/15/2023 Jorge Leavitt Plan Of Treatment No Information Progress Notes * [place] GEORGEbrodieDOB:[birth year] (74 yo M)Acc No.[id number]:10/15/2023 Progress Notes Patient:?Prasanth GEORGE Provider:?Jorge Leavitt DPM :1950???Age:73 Y???Sex:Male Hai e:10/15/2023 Address:[address] [place], [place] [id number] Pcp:Ramses Motley N.P Subjective: * Chief Complaints: * ??? * Medical History:? Objective: * Vitals:? Assessment: Plan: * Treatment: * Images: * The named appointment provid er may or may not be the originator of this progress note, and it is not deemed complete until electronically signed by the appointment provider. Sign off status: Pending * Provider:Tevin Leavitt DPM Date:? 024 Generated for Demetrius muir/Katerine/eTransmitting on:?04/22/2024 04:15 PM EST
[2024-04-22 17:53] LABS: MANUAL DIFF FLAG NO
[2024-04-22 17:56] LABS: Basophils Absolute Auto 0.1 X10*3/uL (0.0-0.2); Basophils Percent Auto 0.8 % (0-2); Eosinophils Absolute Auto 0.2 X10*3/uL (0.0-0.4); Eosinophils Percent Auto 3.8 % (0-4); Hematocrit 39.1 % (42.0-52.0); Hemoglobin 13.7 g/dl (14.0-18.0); Imm Gran Abs Auto 0.02 X10*3/uL (0.00-0.03); Imm Gran Pct Auto 0.3 % (0.0-0.4); Lymphocytes Absolute Auto 1.9 X10*3/uL (1.2-4.9); Lymphocytes Percent Auto 31.4 % (20-40); Mean Corpuscular Hemoglobin 30.2 pg (27.0-33.0); Mean Corpuscular Volume 86.1 fL (80.0-98.0); Mean Platelet Volume 9.7 fL (9.4-12.4); Monocytes Absolute Auto 0.6 X10*3/uL (0.1-1.2); Monocytes Percent Auto 10.4 % (2-11); Neutrophils Absolute Auto 3.2 x10*3/uL (2.0-8.3); Neutrophils Percent Auto 53.3 % (45-73); Platelet Count 216 X10*3/uL (160-400); Red Blood Count 4.54 X10*6/uL (4.60-5.80); Red Cell Distribution Width 13.8 % (11.0-16.0); White Blood Count 6.1 X10*3/uL (4.8-10.8)
[2024-04-22 18:02] LABS: Estimated Average Glucose 280 mg/dL; Hemoglobin A1C 354.2342 umol/L; Hemoglobin A1c % 11.4 % (<6.0); Total Hemoglobin (HGBA1C) 3504.6932 umol/L
[2024-04-22 18:19] LABS: Creatinine Urine 46.16 mg/dL; Microalbum/Creatinine Ratio Ur 69.3 ug/mg cr (<30)
[2024-04-22 18:24] LABS: Alanine Aminotransferase 31 U/L (0-40); Albumin Level 3.9 g/dL (3.5-5.0); Alkaline Phosphatase 85 U/L (39-117); Anion Gap 12 (12-20); Aspartate Amino Transferase 23 U/L (5-37); Bilirubin Total 0.6 mg/dL (0.0-1.0); Blood Urea Nitrogen 12 mg/dL (9-16); Calcium 9.1 mg/dL (8.4-10.2); Carbon Dioxide 25 mmol/L (22-29); Chloride 103 mmol/L (96-108); Cholesterol 116 mg/dL (<200); Estimated Glomerular Filt Rate > 60; Glucose Random 435 mg/dL (60-115); HDL Cholesterol 38 mg/dL (>40); LDL Cholesterol Calculated 42 mg/dL (<100); Potassium 4.6 mmol/L (3.3-5.1); Sodium 135 mmol/L (135-145); Total Protein 7.5 g/dL (6.5-8.0); Triglycerides 181 mg/dL (<150); Uric Acid 5.5 mg/dL (3.4-7.0)
[2024-04-22 18:32] LABS: Prostate Specific Antigen 0.11 ng/mL (<0.05-4.0)
== END 2024-04-22 16:10 | disposition home or self-care (01) ==
LOC: HO.MANLDS 16:09
PROVIDERS: Visit Provider Internal Medicine
DX: Z12.5 Encounter for screening for malignant neoplasm of prostate (principal); E78.00 Pure hypercholesterolemia, unspecified; E11.9 Type 2 diabetes mellitus without complications; M10.9 Gout, unspecified; R31.0 Gross hematuria
CPT/HCPCS: 36415; 80053; 80061; 82043; 82570; 83036; 84153; 84550; 85025